=== PATIENT | female | born 1935 | race Caucasian/White ===

== ENCOUNTER 2016-11-11 15:19 | Inpatient (IN) ==
--- NOTE | 2016-11-11 15:39 | EKG Report ---
Test Performed on : 11/11/2016 3:30:11 PM Test Reason : Chest Pain Blood Pressure : / mmHG Vent. Rate : 077 BPM Atrial Rate : 394 BPM P-R Int : 000 ms QRS Dur : 074 ms QT Int : 388 ms P-R-T Axes : 000 105 249 degrees QTc Int : 439 ms Atrial fibrillation. Rightward axis Septal infarct , age undetermined ST \T\ T wave abnormality, consider inferior ischemia ST \T\ T wave abnormality, consider anterolateral ischemia Abnormal ECG When compared with ECG of 01-SEP-2015 14:28, No significant change was found Unconfirmed Result
--- NOTE | 2016-11-11 16:20 | Diag Imaging Result Doc PS360 ---
CHEST-2 VIEWS - 11/11/2016 INDICATION: sob TECHNIQUE: COMPARISON: 09/08/2015 FINDINGS: Stable cardiomegaly and pulmonary vascular congestion. No focal infiltrates, pneumothorax, or pleural effusion. IMPRESSION: Cardiomegaly and pulmonary vascular congestion. Electronically signed by Gregg Delacruz 11/11/2016 4:18 PM
[2016-11-11 16:25] LABS: MANUAL DIFF NEEDED? NO
[2016-11-11 16:33] LABS: BASO% 0.2 % (0.0-0.8); EOS# 0.33 X1000 (0.0-0.7); EOS% 1.9 % (0.0-10.0); HEMATOCRIT 39.3 % (37.0-47.0); HEMOGLOBIN 12.7 g/dL (12.0-16.0); IMM GRAN# 0.04 X1000 (0.0-0.04); IMM GRAN% 0.2 % (0.0-0.5); LYMPH# 2.55 X1000 (1.2-3.4); MCHC 32.3 g/dL (33-37); MCV 92.9 FL (81-99); MONO# 0.73 X1000 (0.11-0.59); MONO% 4.3 % (1.7-9.3); MPV 10.2 FL (7.4-10.4); NEUT% 78.4 % (42.2-75.2); PLT 223 X1000 (130-400); RBC 4.23 XMIL (4.2-5.4)
[2016-11-11 16:42] LABS: INR 1.02; PROTIME 10.7 Seconds (9.2-11.7)
[2016-11-11 16:57] LABS: ALBUMIN 3.7 g/dL (3.5-5.0); MAGNESIUM 2.1 mg/dL (1.5-2.7); POTASSIUM 4.4 mmol/L (3.5-5.1); TOTAL BILIRUBIN 0.29 mg/dL (0.20-1.00); TOTAL PROTEIN 7.9 g/dL (6.3-8.3)
[2016-11-11] MEDS ORDERED: DUONEB (A & A) INH ONE (17:01)
[2016-11-11] MEDS ORDERED: SOLU-MEDROL IV ONE (17:02)
[2016-11-11] MEDS ORDERED: ZOSYN 3.375 GM in NS 50 ML IV ONE (17:38)
--- NOTE | 2016-11-11 17:52 | PROVIDER DOCUMENTATION ---
HPI-General Adult - General Chief Complaint: General Adult Stated Complaint: LOW OXYGEN Time Seen by Provider: 11/11/16 16:17 Source: patient, family Allergies/Adverse Reactions: Patient Allergies Allergy/AdvReac Type Severity Reaction Status Date / Time sulfamethoxazole Allergy Unknown Verified 11/11/16 16:47 [From Bactrim] trimethoprim [From Bactrim] Allergy Unknown Verified 11/11/16 16:47 Home Medications: Home Medication List Medication Instructions Recorded Confirmed Last Taken Type Aspirin [Aspirin EC] 325 mg PO DAILY 08/10/13 11/11/16 11/11/16 08:00 History Calcium Citrate/Vitamin D2 1 each PO DAILY 08/10/13 11/11/16 11/11/16 08:00 History [Calcium Citrate with Vit D Tab] Digoxin 125 mcg PO DAILY 08/10/13 11/11/16 11/11/16 08:00 History Docusate Sodium 100 mg PO BID 08/10/13 11/11/16 11/11/16 08:00 History Esomeprazole [Nexium] 40 mg PO DAILY 08/10/13 11/11/16 11/11/16 08:00 History Fluoxetine HCl [Prozac] 40 mg PO DAILY 08/10/13 11/11/16 11/11/16 08:00 History Iron Carbonyl/Ascorbic Acid 1 each PO DAILY 08/10/13 11/11/16 11/11/16 08:00 History [Icar-C] Isosorbide Mononitrate [Isosorbide 30 mg PO DAILY 08/10/13 11/11/16 11/11/16 08: 00 History Mononitrate ER] LOVAstatin [Mevacor] 20 mg PO HS 08/10/13 11/11/16 11/11/16 08:00 History Lacosamide [Vimpat] 100 mg PO BID 08/10/13 11/11/16 11/11/16 08:00 History Levetiracetam 1,000 mg PO BID 08/10/13 11/11/16 11/11/16 08:00 History Magnesium Oxide [Mag-Ox] 400 mg PO BID 08/10/13 11/11/16 11/11/16 08:00 History Potassium Chloride [Klor-Con M20] 20 meq PO BID 08/10/13 11/11/16 11/11/16 08: 00 History Furosemide [Lasix] 60 mg PO BID #0 09/08/15 11/11/16 11/11/16 08:00 Rx - History of Present Illness -Gen Adult Nature of Presenting Problems: pt presents from home. She vomited yesterday and started to cough. She has been coughing since. Home health came out this morning and she was found to have low oxygen saturations despite her home o2 @3 L. Pt does tell she fell several days ago and landed on left hip. She has had hip pain since. She has been able to ambulate some. She denies headache, neck pain, back pain, chest pain, abd pain. Location of Pain/Injury: reports: lower extremity (left hip) Pain Radiation: reports: no radiation Quality of Pain: reports: aching Severity: reports: mild Onset/Duration: reports: 3 days ago Timing: reports: still present Context/Activities at Onset: reports: none Modifying Factors: improves with: movement, palpation Associated Symptoms: reports: cough, fatigue, joint pain, shortness of breath, vomiting, weakness. denies: anxiety, arm pain, chest pain, dizziness, fever/ chills, headaches, malaise, nausea, syncope Similar Symptoms Previously?: No Recently seen or treated by another doctor?: No Review of Systems - Adult - REVIEW OF SYSTEMS - ADULT Constitutional: reports: danieque Eyes: reports: no symptoms reported Ears, Nose, Mouth & Throat: reports: no symptoms reported Cardiovascular: reports: no symptoms reported Respiratory: reports: see HPI, cough, shortness of breath, wheezing Gastrointestinal: reports: see HPI, nausea, vomiting. denies: abdominal pain Genitourinary: reports: no symptoms reported Musculoskeletal: reports: no symptoms reported, see HPI, joint pain. denies: back pain, muscle weakness, neck pain Integumentary: reports: no symptoms reported Neurological: reports: no symptoms reported Psychiatric: reports: no symptoms reported Endocrine: reports: no symptoms reported Hematologic/Lymphatic: reports: no symptoms reported Allergic/Immunologic: reports: no symptoms reported All Other Systems: Reviewed and Negative Past History - Adult - PAST MEDICAL HISTORY-ADULT Review of Records: reports: Old Records Reviewed Major Childhood Illnesses: reports: denies history Cardiovascular: reports: CHF, HTN, [place] Respiratory: reports: COPD Gastrointestinal: reports: denies history Obstetrical/Gynecological: reports: denies history Genitourinary: reports: denies history Musculoskeletal: reports: denies history Neurological: reports: CVA, Seizures/Epilepsy Psychiatric: reports: anxiety Endocrine/Immune: reports: Diabetes Other Conditions: reports: other cancer (skin) - PRIOR SURGERIES/PROCEDURES Surgical/Procedure History: reports: hysterectomy - IMMUNIZATION STATUS Childhood Immunizations: See Nurse Assessment Flu Vaccine: See Nurse Assessment - FAMILY HISTORY Family History: reviewed, not pertinent - SOCIAL HISTORY Smoking: denies Substance Use: none/never Alcohol Use Frequency: never Living Situation: family Physical Exam-General - PHYSICAL EXAM-ADULT Initial Vital Signs Reviewed: Yes - CONSTITUTIONAL General Appearance: appears well, alert, no apparent distress - EYES Eyes: PERRL/EOMI, pink conjunctivae - HEAD, EARS, NOSE, MOUTH & THROAT HENMT: normocephalic/atraumatic - NECK Neck: supple - RESPIRATORY Respiratory: chest non-tender, rhonchi, other (wheeze) - CARDIOVASCULAR Cardiovascular: normal peripheral pulses, regular rate, rhythm, no edema - GASTROINTESTINAL (ABDOMEN) Abdominal Exam: non tender, soft, no organomegaly - MUSCULOSKELETAL Back Exam: normal inspection, no CVA tenderness, no vertebral tenderness. negative: vertebral tenderness Extremity: non-tender, normal inspection, no pedal edema, no calf tenderness, other (mild pain to left hip. mild pain c rom) Peripheral Pulses: dorsalis-pedis (R): 2+, dorsalis-pedis (L): 2+ - SKIN Integumentary: normal color, normal turgor, warm/dry - NEUROLOGIC Neurologic: grossly normal - PSYCHIATRIC Psych/Mental Status: normal mood/affect Progress - PLAN OF CARE/RESULTS Progress/Plan/Lab Results: Vital Signs - 8 hr 11/11/16 15:23 11/11/16 17:16 Pulse Rate 78 62 Respiratory Rate 20 14 Blood Pressure 152/82 O2 Sat by Pulse Oximetry 96 94 L Laboratory Results - last 24 hr 11/11/16 11/11/16 11/11/16 15:37 15:37 15:37 WBC 17.03 H RBC 4.23 Hgb 12.7 Hct 39.3 MCV 92.9 MCH 30.0 MCHC 32.3 L RDW Std Deviation 14.0 Plt Count 223 MPV 10.2 Immature Gran % (Auto) 0.2 Neut % (Auto) 78.4 H Lymph % (Auto) 15.0 L [place] % (Auto) 4.3 Eos % (Auto) 1.9 Baso % (Auto) 0.2 Immature Gran # (Auto) 0.04 Neut # (Auto) 13.34 H Lymph # (Auto) 2.55 [place] # (Auto) 0.73 H Eos # (Auto) 0.33 Baso # (Auto) 0.04 PT INR PTT (Actin FS) Sodium 142 Potassium 4.4 Chloride 100 Carbon Dioxide 29 Anion Gap 13 BUN 37 H Creatinine 1.3 H Estimated GFR/1.73 m2 39 BUN/Creatinine Ratio 28 Glucose 242 H Calculated Osmolality 300 Calcium 9.0 Magnesium 2.1 Total Bilirubin 0.29 AST 22 ALT 19 Alkaline Phosphatase 71 Creatine Kinase 67 Troponin T [id number]-[id number] Pept 4036 H Total Protein 7.9 Albumin 3.7 Globulin 4.2 Albumin/Globulin Ratio 0.9 Amylase 35 Lipase 19 11/11/16 11/11/16 15:37 15:37 WBC RBC Hgb Hct MCV MCH MCHC RDW Std Deviation Plt Count MPV Immature Gran % (Auto) Neut % (Auto) Lymph % (Auto) [place] % (Auto) Eos % (Auto) Baso % (Auto) Immature Gran # (Auto) Neut # (Auto) Lymph # (Auto) [place] # (Auto) Eos # (Auto) Baso # (Auto) PT 10.7 INR 1.02 PTT (Actin FS) 28.0 Sodium Potassium Chloride Carbon Dioxide Anion Gap BUN Creatinine Estimated GFR/1.73 m2 BUN/Creatinine Ratio Glucose Calculated Osmolality Calcium Magnesium Total Bilirubin AST ALT Alkaline Phosphatase Creatine Kinase Troponin T 0.058 [id number] Pept Total Protein Albumin Globulin Albumin/Globulin Ratio Amylase Lipase Orders Category Date Time Status Cardiac Monitoring DIRECTED Care 11/11/16 15:27 Active Oxygen Therapy- ED Nursing DIRECTED Care 11/11/16 15:27 Active Saline Loc DIRECTED Care 11/11/16 15:27 Active NPO Diet 11/11/16 15:27 Active CHEST-2 VIEWS [RAD] Stat Exams 11/11/16 15:27 Completed XRAY PELVIS W/HIP 2-3VW LT [RAD] Stat Exams 11/11/16 17:49 Ordered AMYLASE [CHEM] Stat Lab 11/11/16 15:37 Completed BLOOD CULTURE [BLDCUL] Stat Lab 11/11/16 17:21 Uncollected CBC WITH ELECTRONIC DIFF [HEME] Stat Lab 11/11/16 15:37 Completed CK PROFILE [SP CHEM] Stat Lab 11/11/16 15:37 Completed COMPREHENSIVE METABOLIC PANEL [CHEM] Stat Lab 11/11/16 15:37 Completed DIGOXIN [TDM] Stat Lab 11/11/16 15:37 Received LACTATE, PLASMA [CHEM] Stat Lab 11/11/16 17:21 Uncollected LIPASE [CHEM] Stat Lab 11/11/16 15:37 Completed MAGNESIUM [CHEM] Stat Lab 11/11/16 15:37 Completed PRO B-NATRIURETIC PEPTIDE Stat Lab 11/11/16 15:37 Completed PROTIME WITH INR [COAG] Stat Lab 11/11/16 15:37 Completed PTT [COAG] Stat Lab 11/11/16 15:37 Completed TROPONIN T Stat Lab 11/11/16 15:37 Completed UA NIMS W/REFLEX CULT [URINALYSIS] Stat Lab 11/11/16 17:01 Uncollected Albuterol 2.5MG/Ipratrop 0.5MG [Duoneb (A & A)] Med 11/11/16 17:01 Discontinued 6 ml INH NOW ONE Methylprednisolone Sod Succ [Solu-Medrol] Med 11/11/16 17:02 Discontinued 80 mg IV NOW ONE Piperacillin/Tazobactam [Zosyn] 3.375 gm Med 11/11/16 17:38 Active 0.9% Sodium Chloride Inj [Ns] 50 ml IV NOW neb [Aerosol Treatments] Stat Oth 11/11/16 17:01 Completed EKG [EKG] Stat Ther 11/11/16 15:27 Draft Result Diagrams: 11/12/16 04:52 11/12/16 04:52 - REASSESSMENT Reassessment #1 Time Reassessed: 17:40 Status: other (pt with cough, hypoxemia, leukocyotosis. Severe wheeze/rhonchi on exam. Per family in room they noticed her coughing after a vomiting episode yesterday. I am concerned for aspiration. Will admit for IV abx, nebs, monitoring.) - XRAY 1 XRAY Study: Chest Impression: See EMR Report (cardiomegaly, vas congestion. no infiltrate.) 2 XRAY: Left XRAY Study: Pelvis, Hip Impression: See EMR Report (NAF) - CONSULTS/PCP/HOSPITALIST Notification #1 *Consult/PCP/Hospitalist*: Dr. Sands Time Discussed: 17:51 Consult Disposition: Admit (start manasan. Will write orders.) Departure - Departure Date of Disposition Decision: 11/11/16 Time of Disposition Decision: 17:50 DIAGNOSIS: Hypoxemia Leukocytosis Qualifiers: Leukocytosis type: unspecified Qualified Code(s): D72.829 - Elevated white blood cell count, unspecified Hip pain Qualifiers: Laterality: left Qualified Code(s): M25.552 - Pain in left hip Nausea and vomiting Qualifiers: Vomiting type: unspecified Vomiting Intractability: non-intractable Qualified Code(s): R11.2 - Nausea with vomiting, unspecified Disposition: ADMITTED INPATIENT 09 Certified Medical Emergency: Emergent Condition: Stable - Critical Care Note This patient required my direct & personal management of CC.: No Attestation - Physician/ FLORENCE Attestation Patient care was provided by Advanced Practice Provider:: Yes Advanced Practice Provider:: Viktor Burrell Advanced Practice Provider documentation review:: The Mid-level provider documentation, treatment plan and medical decision making was reviewed by the physician who agrees with all treatment and medical decision making by the MLP. The physician spent face to face time with patient:: No Advanced Practice Provider documentation review:: Supervising physician onsite and consulted in the evaluation and care of this patient. The physician did not have a face to face encounter with the patient.
--- NOTE | 2016-11-11 18:40 | Diag Imaging Result Doc PS360 ---
XRAY PELVIS W/HIP 2-3VW LT - 11/11/2016 INDICATION: fall, hip pain TECHNIQUE: Three views COMPARISON: None FINDINGS: There is mild bilateral hip osteoarthritis with large acetabular osteophytes. No fracture or dislocation. There is advanced degeneration of the lower lumbar spine. IMPRESSION: Degenerative changes. No acute disease. Electronically signed by Gregg Delacruz 11/11/2016 6:38 PM
[2016-11-11 20:48] LABS: ALLEN TEST YES; BE 7.2 mmoll (-3.0-3.0); BLOOD TYPE ARTERIAL; DRAW SITE R RADIAL; METHB 1.4 % (0.0-1.5); O2(CT) 17.9 mL/dL (15.0-23.0); PCO2(98.6) 45 mmHg (35-45); PO2(98.6) 71 mmHg (60-100); SAMPLE BLOOD; SAO2 97.5 % (95.0-100.0); THB 13.5 g/dL (11.5-17.4); pH(98.6) 7.46 (7.35-7.45)
[2016-11-11 20:49] LABS: MODALITY CANNULA
[2016-11-11] MEDS ORDERED: HUMALOG SUBQ SCH (21:00)
[2016-11-11] MEDS: MAG-OX PO SCH (21:28)
[2016-11-11] MEDS: KLOR-CON PO SCH (21:28)
[2016-11-11] MEDS: LASIX PO SCH (21:29)
[2016-11-11] MEDS: MEVACOR PO SCH (21:29)
[2016-11-11] MEDS: COLACE PO SCH (21:29)
[2016-11-11] MEDS: KEPPRA PO SCH (21:29)
[2016-11-11] MEDS: VIMPAT PO SCH (21:29)
[2016-11-11 21:40] LABS: URINE MICRO REVIEW NEEDED? NO; URINE SOURCE CLEAN CATCH
--- NOTE | 2016-11-11 21:44 | HISTORY AND PHYSICAL ---
CHIEF COMPLAINT: Shortness of breath. HISTORY OF PRESENT ILLNESS: Ms. Cruz is an 81-year-old white female who was brought in to the emergency department earlier today with complaint of having shortness of breath along with cough and congestion starting yesterday after she vomited at home. She has been having significant coughing and congestion ever since. Today earlier this morning she was found to have hypoxemia with low oxygen saturation despite use of home oxygen at 3 L by home health after which she was decided to be sent to the emergency room for further evaluation and care. The patient also states that she had a fall several days ago and landed on her left hip after which she has been having left hip pain. She denies having any other complaints. She has been a poor historian. PAST MEDICAL HISTORY: 1. Type 2 diabetes mellitus. 2. Chronic atrial fibrillation. 3. Chronic diastolic congestive heart failure. 4. Hypertension. 5. Dyslipidemia. 6. Gastroesophageal reflux disease. 7. Anxiety disorder. 8. Depression. 9. Osteopenia. 10. Osteoarthritis. 11. There is a history of subdural hematoma that was related to warfarin therapy after which warfarin was discontinued. SOCIAL HISTORY: Patient does not smoke any tobacco products nor does she drink any alcohol. She is retired and lives at home. FAMILY HISTORY: There is family history of arthritis and stroke. ALLERGIES: The patient reports to be allergic to Bactrim. CURRENT HOME MEDICATIONS: 1. Aspirin 325 mg orally once daily. 2. Calcium carbonate 600 mg orally once daily. 3. Digoxin 125 mcg orally once daily. 4. Docusate sodium 100 mg orally twice daily. 5. Nexium 40 mg orally once daily in the morning. 6. Fluoxetine 40 mg orally once daily. 7. Furosemide 80 mg in the morning and 40 mg in the evening every day. 8. Icar-C 250 mg/100 mg orally once daily. 9. Isosorbide mononitrate ER 30 mg orally once daily. 10. Lacosamide 100 mg orally twice daily. 11. Keppra 1000 mg orally twice daily. 12. Lovastatin 20 mg orally once daily at bedtime. 13. Magnesium oxide 400 mg orally twice daily. 14. Potassium chloride 20 mEq orally twice daily. REVIEW OF SYSTEMS: A full review of system could not be obtained since patient is a poor historian. PHYSICAL EXAMINATION: VITAL SIGNS: Temperature 98 degrees, pulse 62 per minute, respiratory rate 14 per minute, blood pressure 152/82, pulse oximetry 94% on 4 L of oxygen via nasal cannula. GENERAL: Patient is alert and oriented x3. She does not appear to be in any acute distress. HEENT: No acute findings noted. NECK: Supple without any thyromegaly. LYMPHATICS: No lymphadenopathy noted in the cervical or axillary areas. RESPIRATORY SYSTEM: Bilateral lung air entry is moderately decreased and there are a few rales present bilaterally on auscultation. CARDIOVASCULAR SYSTEM: First and second heart sounds are audible without any murmurs or gallops. Irregularly irregular rhythm is present. GASTROINTESTINAL: Abdomen is soft and nondistended. It is nontender on palpation. Normal bowel sounds are present. MUSCULOSKELETAL SYSTEM: No deformities are present. Range of motion in most of the joints somewhat limited secondary to osteoarthritis. NEUROLOGIC: No focal deficits are present. GENITOURINARY: Deferred. PSYCHIATRIC: Normal affect noted. INTEGUMENTARY: Skin is warm, dry, and without any rash. DIAGNOSTIC DATA: CBC shows WBC count of 17.03. Rest of the CBC is nondiagnostic. Chemistry showed BUN 37, creatinine 1.3 and glucose levels of 242. Rest of the comprehensive metabolic panel was nondiagnostic. PT and PTT are within normal limits and CPK is also within normal limits. Troponin is negative and amylase and lipase are both within normal limits. ProBNP was elevated at 4036 and plasma lactate was normal at 1.9. Digoxin levels were also within therapeutic range at 1.0. Two sets of blood cultures were obtained at the emergency room and are pending at the time of this dictation. ECG obtained at the emergency room showed atrial fibrillation with ventricular response of 77 beats per minute with inferolateral T-wave inversions. Chest x-ray showed cardiomegaly with increased pulmonary vascular congestion. Left hip and pelvis x-rays showed no acute findings. IMPRESSION: 1. Aspiration with dyspnea and hypoxemia likely secondary to early aspiration pneumonia. 2. Type 2 diabetes mellitus that appears to be uncontrolled. 3. Chronic diastolic congestive heart failure. 4. Chronic atrial fibrillation. 5. Hypertension. PLAN: The patient has been admitted to the [facility] on telemetry and we are going to continue her routine home medications. I am also going to continue with Zosyn intravenously that was started at the emergency department. Will give her albuterol and Atrovent nebulization treatments q.6 hours and give her oxygen inhalation via nasal cannula as well. I am going to obtain an ABG to evaluate her hypoxemia and start her on lispro insulin as per sliding scale to control her diabetes. Would repeat CBC and basic metabolic panel in the morning tomorrow. I am also going to obtain a 2nd set of cardiac enzymes now to make sure she does not have any acute myocardial ischemic event. Further recommendations will be given as per outcome of these measures. cc: Lyle Sands MD
[2016-11-11 21:45] LABS: BILIRUBIN URINE NEGATIVE (NEGATIVE); BLOOD URINE NEGATIVE (NEGATIVE); COLOR YELLOW; GLUCOSE URINE NEGATIVE (NEGATIVE); LEUKOCYTES URINE LARGE (NEGATIVE); NITRITE URINE NEGATIVE (NEGATIVE); PH URINE 8.5; PROTEIN URINE 30 mg/dL (NEGATIVE); SP GRAVITY URINE 1.018; TURBIDITY URINE HAZY (CLEAR); UROBILINOGEN URINE NORMAL (NORMAL)
[2016-11-11 21:46] LABS: UR EPITHELIAL CELLS >10 /HPF (<10); URINE BACTERIA 4+ /HPF; URINE CULTURE NEEDED? YES; URINE RBC <10 /HPF (<10)
[2016-11-11] MEDS ORDERED: DUONEB (A & A) INH SCH (22:00)
[2016-11-12] MEDS: ZOSYN 3.375 GM in NS 50 ML IV SCH ×4 (01:15→18:24)
[2016-11-12 06:22] LABS: CALCIUM 9.2 mg/dL (8.8-10.2); MAGNESIUM 2.2 mg/dL (1.5-2.7); POTASSIUM 4.8 mmol/L (3.5-5.1)
[2016-11-12] MEDS: NEXIUM PO SCH (06:25)
[2016-11-12 06:32] LABS: BASO% 0.1 % (0.0-0.8); EOS# 0.01 X1000 (0.0-0.7); EOS% 0.1 % (0.0-10.0); HEMATOCRIT 40.8 % (37.0-47.0); HEMOGLOBIN 13.1 g/dL (12.0-16.0); IMM GRAN# 0.04 X1000 (0.0-0.04); IMM GRAN% 0.3 % (0.0-0.5); LYMPH# 1.09 X1000 (1.2-3.4); LYMPH% 8.4 % (20.5-51.1); MANUAL DIFF NEEDED? YES; MCH 29.6 PG (27-31); MCHC 32.1 g/dL (33-37); MCV 92.3 FL (81-99); MONO# 0.27 X1000 (0.11-0.59); MONO% 2.1 % (1.7-9.3); MPV 10.6 FL (7.4-10.4); PLT 213 X1000 (130-400); RBC 4.42 XMIL (4.2-5.4)
[2016-11-12 07:24] LABS: LYMPHS 10 % (21-51); MONO 4 % (1-9)
--- NOTE | 2016-11-12 08:13 | PROGRESS NOTE ---
DATE: 11/12/2016 VITAL SIGNS: Temperature 96.8, heart rate 68, respirations 18, blood pressure 137/109. O2 sat 99% on 3 L nasal oxygen. LABORATORY: Sodium 140, potassium 4.8, BUN 35, creatinine 1.1, glucose 231. Troponin T early a.m. was 0.036. Hemoglobin 13.1, hematocrit 40.8, white blood count 13,000 with 89% neutrophils. SUBJECTIVE: The patient states she still feels bad with cough and shortness of breath. OBJECTIVE: Lungs are fairly clear. IMAGING: Initial chest x-ray showed cardiomegaly and pulmonary vascular congestion. She continues to be in atrial fibrillation with controlled rate. MEDICATIONS: Home medications have been continued including Lasix 60 mg b.i.d. She is on Zosyn for possible early aspiration pneumonitis. She was given one dose of Solu-Medrol 1 g in the emergency room. PLAN: P.O. Apresoline. Intravenous antibiotic will be continued. Blood cultures are pending. We will also attempt sit her up in the chair a few times today. cc: MD Lyle Jefferson MD
[2016-11-12] MEDS: VIMPAT PO SCH ×2 (08:30→20:12)
[2016-11-12] MEDS: KEPPRA PO SCH ×2 (08:30→20:12)
[2016-11-12] MEDS: LANOXIN PO SCH (08:30)
[2016-11-12] MEDS: PROZAC PO SCH (08:30)
[2016-11-12] MEDS: LASIX PO SCH ×2 (08:30→20:12)
[2016-11-12] MEDS: ICAR-C PO SCH (08:30)
[2016-11-12] MEDS: KLOR-CON PO SCH ×2 (08:30→20:12)
[2016-11-12] MEDS: COLACE PO SCH ×2 (08:30→20:12)
[2016-11-12] MEDS: IMDUR PO SCH (08:31)
[2016-11-12] MEDS: CALTRATE 600 + D PO SCH (08:31)
[2016-11-12] MEDS: APRESOLINE PO SCH ×2 (08:31→17:09)
[2016-11-12] MEDS: ASPIRIN EC PO SCH (08:31)
[2016-11-12] MEDS: MAG-OX PO SCH ×2 (08:31→20:12)
[2016-11-12] MEDS: MEVACOR PO SCH (20:12)
[2016-11-12] MEDS: CALMOSEPTINE OINTMENT TOP PRN (20:39)
[2016-11-13] MEDS: APRESOLINE PO SCH ×3 (00:30→16:23)
[2016-11-13] MEDS: ZOSYN 3.375 GM in NS 50 ML IV SCH ×4 (00:30→18:29)
[2016-11-13] MEDS: CALMOSEPTINE OINTMENT TOP PRN ×2 (00:30→05:02)
[2016-11-13 05:26] LABS: MANUAL DIFF NEEDED? NO
[2016-11-13 05:49] LABS: BASO% 0.3 % (0.0-0.8); EOS# 0.28 X1000 (0.0-0.7); HEMATOCRIT 40.9 % (37.0-47.0); HEMOGLOBIN 13.1 g/dL (12.0-16.0); IMM GRAN# 0.03 X1000 (0.0-0.04); IMM GRAN% 0.2 % (0.0-0.5); LYMPH# 2.31 X1000 (1.2-3.4); LYMPH% 16.2 % (20.5-51.1); MCH 29.7 PG (27-31); MCV 92.7 FL (81-99); MONO# 0.63 X1000 (0.11-0.59); MONO% 4.4 % (1.7-9.3); MPV 11.4 FL (7.4-10.4); NEUT% 76.9 % (42.2-75.2); PLT 103 X1000 (130-400); RBC 4.41 XMIL (4.2-5.4)
[2016-11-13 06:01] LABS: CALCIUM 9.1 mg/dL (8.8-10.2); POTASSIUM 4.2 mmol/L (3.5-5.1)
[2016-11-13] MEDS: NEXIUM PO SCH (06:22)
[2016-11-13] MEDS: ICAR-C PO SCH (08:22)
[2016-11-13] MEDS: LANOXIN PO SCH (08:22)
[2016-11-13] MEDS: MAG-OX PO SCH ×2 (08:22→20:43)
[2016-11-13] MEDS: PROZAC PO SCH (08:22)
[2016-11-13] MEDS: CALTRATE 600 + D PO SCH (08:22)
[2016-11-13] MEDS: KLOR-CON PO SCH ×2 (08:22→20:43)
[2016-11-13] MEDS: IMDUR PO SCH (08:22)
[2016-11-13] MEDS: LASIX PO SCH ×2 (08:23→20:43)
[2016-11-13] MEDS: COLACE PO SCH ×2 (08:23→20:43)
[2016-11-13] MEDS: VIMPAT PO SCH ×2 (08:23→20:43)
[2016-11-13] MEDS: KEPPRA PO SCH ×2 (08:23→20:43)
[2016-11-13] MEDS: ASPIRIN EC PO SCH (08:23)
[2016-11-13] MEDS ORDERED: ZOFRAN IV PRN (20:31)
[2016-11-13] MEDS: MEVACOR PO SCH (20:43)
[2016-11-14] MEDS: APRESOLINE PO SCH ×3 (01:47→16:30)
[2016-11-14] MEDS: ZOSYN 3.375 GM in NS 50 ML IV SCH ×6 (01:47→18:35)
[2016-11-14 03:31] LABS: ALLEN TEST YES; BE 12.8 mmoll (-3.0-3.0); BLOOD TYPE ARTERIAL; DRAW SITE R RADIAL; O2(CT) 18.8 mL/dL (15.0-23.0); PO2(98.6) 74 mmHg (60-100); SAMPLE BLOOD; SAO2 98.8 % (95.0-100.0); pH(98.6) 7.42 (7.35-7.45)
[2016-11-14 03:35] LABS: MODALITY CANNULA
[2016-11-14 03:41] LABS: PCO2(98.6) 62 mmHg (35-45)
[2016-11-14 05:07] LABS: MANUAL DIFF NEEDED? NO
[2016-11-14 05:24] LABS: BASO% 0.5 % (0.0-0.8); EOS% 3.9 % (0.0-10.0); HEMOGLOBIN 13.4 g/dL (12.0-16.0); IMM GRAN# 0.04 X1000 (0.0-0.04); IMM GRAN% 0.3 % (0.0-0.5); LYMPH# 2.59 X1000 (1.2-3.4); LYMPH% 20.1 % (20.5-51.1); MCHC 31.9 g/dL (33-37); MONO# 0.73 X1000 (0.11-0.59); MONO% 5.7 % (1.7-9.3); MPV 10.3 FL (7.4-10.4); NEUT% 69.5 % (42.2-75.2); PLT 233 X1000 (130-400); RBC 4.47 XMIL (4.2-5.4)
[2016-11-14 05:47] LABS: CALCIUM 9.1 mg/dL (8.8-10.2); MAGNESIUM 2.3 mg/dL (1.5-2.7); POTASSIUM 4.3 mmol/L (3.5-5.1)
[2016-11-14] MEDS: NEXIUM PO SCH (06:07)
--- NOTE | 2016-11-14 07:31 | Diag Imaging Result Doc PS360 ---
EXAM: CHEST-PORTABLE INDICATION: Hypoxemia; Aspiration TECHNIQUE: One view COMPARISON: 11/11/2016 FINDINGS: Pulmonary venous congestion is approximately stable. There is platelike atelectasis at the mid and lower lung zones that is approximately stable. No definite new consolidation is identified. Cardiac silhouette is stable. IMPRESSION: Essentially stable chest. Electronically signed by Serafin Luna 11/14/2016 7:29 AM
[2016-11-14] MEDS: LANOXIN PO SCH (08:14)
[2016-11-14] MEDS: LOVENOX SUBQ SCH (08:14)
[2016-11-14] MEDS: IMDUR PO SCH (08:14)
[2016-11-14] MEDS: CALTRATE 600 + D PO SCH (08:14)
[2016-11-14] MEDS: COLACE PO SCH ×2 (08:15→21:43)
[2016-11-14] MEDS: VIMPAT PO SCH ×2 (08:15→21:42)
[2016-11-14] MEDS: ASPIRIN EC PO SCH (08:15)
[2016-11-14] MEDS: KEPPRA PO SCH ×2 (08:15→21:43)
[2016-11-14] MEDS: MAG-OX PO SCH ×2 (08:15→21:43)
[2016-11-14] MEDS: PROZAC PO SCH (08:15)
[2016-11-14] MEDS: ICAR-C PO SCH (08:15)
[2016-11-14] MEDS: MEVACOR PO SCH (21:43)
[2016-11-15] MEDS: APRESOLINE PO SCH ×3 (01:41→16:53)
[2016-11-15] MEDS: ZOSYN 3.375 GM in NS 50 ML IV SCH ×5 (01:41→19:35)
[2016-11-15 05:37] LABS: CALCIUM 8.7 mg/dL (8.8-10.2); POTASSIUM 3.7 mmol/L (3.5-5.1)
[2016-11-15] MEDS: NEXIUM PO SCH ×2 (05:56→06:16)
[2016-11-15] MEDS: VIMPAT PO SCH ×2 (09:53→20:06)
[2016-11-15] MEDS: CALTRATE 600 + D PO SCH (09:53)
[2016-11-15] MEDS: MAG-OX PO SCH ×2 (09:53→20:07)
[2016-11-15] MEDS: ICAR-C PO SCH (09:54)
[2016-11-15] MEDS: KEPPRA PO SCH ×2 (09:54→20:06)
[2016-11-15] MEDS: PROZAC PO SCH (09:54)
[2016-11-15] MEDS: COLACE PO SCH ×2 (09:55→20:06)
[2016-11-15] MEDS: IMDUR PO SCH (09:55)
[2016-11-15] MEDS: LOVENOX SUBQ SCH (09:55)
[2016-11-15] MEDS: LANOXIN PO SCH (09:55)
[2016-11-15] MEDS: ASPIRIN EC PO SCH (09:55)
[2016-11-15] MEDS: 1/2 NS 500 ML IV SCH ×2 (15:07→16:53)
[2016-11-15] MEDS: MEVACOR PO SCH (20:06)
--- NOTE | 2016-11-15 22:01 | Diag Imaging Result Doc PS360 ---
EXAM: CT ANGIOGRM/PULMONARY ARTERIES - 11/15/2016 HISTORY: Hypoxemia TECHNIQUE: With intravenous contrast. Axial, reformatted coronal MIP, and reformatted 3-D rotating MIP images are obtained. Dose reduction protocol. COMPARISON: Without contrast CT thorax of 09/05/2015 FINDINGS: There are no filling defects identified in the pulmonary arteries. There is no indication of aortic dissection. There is cardiomegaly similar to the previous exam. There is a small pericardial effusion appears to have decreased. There is increased atelectasis at the lower lobe and posterior upper lobe on the left. There is a small left pleural effusion. There is some atelectasis or scarring along the right major fissure which has decreased. There is been interval resolution of right pleural effusion. There is no pneumothorax identified. There are scattered small to borderline mediastinal lymph nodes similar to the previous exam. IMPRESSION: No evidence of pulmonary embolism. Stable cardiomegaly. Small pericardial effusion which has decreased. Increased atelectasis at the left lower lobe and posterior left upper lobe. Small left pleural effusion. Decreased atelectasis along right major fissure. Resolution of right pleural effusion. Stable small to borderline mediastinal lymph nodes. Electronically signed by Alexander Lew 11/15/2016 9:58 PM
[2016-11-16] MEDS: APRESOLINE PO SCH ×3 (01:16→17:57)
[2016-11-16] MEDS: ZOSYN 3.375 GM in NS 50 ML IV SCH ×5 (01:16→18:02)
[2016-11-16] MEDS ORDERED: TYLENOL PO PRN (03:10)
[2016-11-16 03:38] LABS: ALLEN TEST YES; BE 10.8 mmoll (-3.0-3.0); BLOOD TYPE ARTERIAL; DRAW SITE R RADIAL; METHB 0.8 % (0.0-1.5); O2(CT) 15.5 mL/dL (15.0-23.0); SAMPLE BLOOD; THB 13.4 g/dL (11.5-17.4); pH(98.6) 7.45 (7.35-7.45)
[2016-11-16 03:40] LABS: MODALITY ROOM AIR
[2016-11-16 03:42] LABS: PCO2(98.6) 53 mmHg (35-45); PO2(98.6) 43 mmHg (60-100)
[2016-11-16 05:00] LABS: MANUAL DIFF NEEDED? NO
[2016-11-16 05:07] LABS: BASO% 0.2 % (0.0-0.8); EOS# 0.23 X1000 (0.0-0.7); EOS% 1.8 % (0.0-10.0); HEMATOCRIT 39.6 % (37.0-47.0); HEMOGLOBIN 13.4 g/dL (12.0-16.0); IMM GRAN# 0.04 X1000 (0.0-0.04); IMM GRAN% 0.3 % (0.0-0.5); LYMPH# 1.73 X1000 (1.2-3.4); LYMPH% 13.7 % (20.5-51.1); MCHC 33.8 g/dL (33-37); MCV 91.7 FL (81-99); MONO# 0.83 X1000 (0.11-0.59); MONO% 6.6 % (1.7-9.3); MPV 10.4 FL (7.4-10.4); NEUT% 77.4 % (42.2-75.2); PLT 216 X1000 (130-400); RBC 4.32 XMIL (4.2-5.4)
[2016-11-16 05:20] LABS: ALBUMIN 3.5 g/dL (3.5-5.0); CALCIUM 9.1 mg/dL (8.8-10.2); MAGNESIUM 2.4 mg/dL (1.5-2.7); POTASSIUM 3.6 mmol/L (3.5-5.1); TOTAL BILIRUBIN 0.31 mg/dL (0.20-1.00)
[2016-11-16] MEDS: NEXIUM PO SCH (06:11)
--- NOTE | 2016-11-16 07:36 | Diag Imaging Result Doc PS360 ---
CHEST-PORTABLE - 11/16/2016 INDICATION: Hypoxemia; CHF TECHNIQUE: COMPARISON: 11/14/2016 FINDINGS: Stable significant cardiomegaly and pulmonary vascular congestion. There is worsening in the left basilar consolidation and/or effusion. The amount of aerated left upper lobe is now very tiny indeed. The left hemithorax is over 80% opacified. IMPRESSION: Worsening opacification of the left lung base. Electronically signed by Gregg Delacruz 11/16/2016 7:33 AM
[2016-11-16] MEDS: LOVENOX SUBQ SCH (09:31)
[2016-11-16] MEDS: ASPIRIN EC PO SCH (09:31)
[2016-11-16] MEDS: PROZAC PO SCH (09:31)
[2016-11-16] MEDS: VIMPAT PO SCH ×2 (09:32→22:01)
[2016-11-16] MEDS: KEPPRA PO SCH ×2 (09:32→22:01)
[2016-11-16] MEDS: ICAR-C PO SCH (09:32)
[2016-11-16] MEDS: LANOXIN PO SCH (09:32)
[2016-11-16] MEDS: COLACE PO SCH ×2 (09:32→21:59)
[2016-11-16] MEDS: MAG-OX PO SCH ×2 (09:32→22:02)
[2016-11-16] MEDS: CALTRATE 600 + D PO SCH (09:32)
[2016-11-16] MEDS: IMDUR PO SCH (09:32)
[2016-11-16] MEDS: KLOR-CON PO SCH ×2 (09:36→22:02)
[2016-11-16] MEDS: LASIX PO SCH ×2 (09:36→22:00)
[2016-11-16] MEDS: MEVACOR PO SCH (22:01)
[2016-11-17] MEDS: ZOSYN 3.375 GM in NS 50 ML IV SCH ×3 (01:48→13:32)
[2016-11-17] MEDS: APRESOLINE PO SCH ×2 (01:49→09:02)
[2016-11-17 05:50] LABS: CALCIUM 9.2 mg/dL (8.8-10.2); POTASSIUM 3.7 mmol/L (3.5-5.1)
[2016-11-17] MEDS: NEXIUM PO SCH (07:00)
[2016-11-17] MEDS: ICAR-C PO SCH (09:01)
[2016-11-17] MEDS: PROZAC PO SCH (09:01)
[2016-11-17] MEDS: LOVENOX SUBQ SCH (09:01)
[2016-11-17] MEDS: ASPIRIN EC PO SCH (09:02)
[2016-11-17] MEDS: CALTRATE 600 + D PO SCH (09:02)
[2016-11-17] MEDS: LASIX PO SCH (09:02)
[2016-11-17] MEDS: VIMPAT PO SCH (09:02)
[2016-11-17] MEDS: MAG-OX PO SCH (09:02)
[2016-11-17] MEDS: COLACE PO SCH (09:02)
[2016-11-17] MEDS: KLOR-CON PO SCH (09:02)
[2016-11-17] MEDS: KEPPRA PO SCH (09:02)
[2016-11-17] MEDS: LANOXIN PO SCH (09:02)
[2016-11-17] MEDS: IMDUR PO SCH (09:02)
--- NOTE | 2016-11-17 11:37 | DISCHARGE SUMMARY ---
ADMISSION DATE: 11/11/2016 DISCHARGE DATE: DISCHARGE DIAGNOSES: 1. Hypoxemia that is chronic and secondary to chronic obstructive pulmonary disease. 2. Vomiting with aspiration. 3. Urinary tract infection. 4. Chronic atrial fibrillation. 5. Chronic diastolic congestive heart failure. 6. Hypertension. 7. Type 2 diabetes mellitus. HOSPITAL COURSE: Ms. Cruz is an 81-year-old white female, who was brought into the emergency department with complaint of having shortness of breath, along with cough and congestion starting after she vomited at home. She was having significant coughing, along with congestion since then. She was brought into the emergency department and during further history, she had a fall and was having some left hip pain. X-rays of the left hip did not show any acute finding. She was admitted to the hospital since she had leukocytosis and had hypoxemia. She was initially treated with IV Zosyn and chest x-rays failed to show any infiltrate. After a few days she continued to have hypoxemia and therefore we obtained a CT angiogram of the pulmonary arteries that did not show any pulmonary embolism. Repeated chest x-rays failed to show any infiltrate and therefore the pneumonia has been ruled out. She was also found to have urinary tract infection and I believe Zosyn was more than enough to treat that. The patient's condition has improved and it is assumed that her hypoxemia is secondary to chronic obstructive pulmonary disease and other multiple factors including chronic diastolic congestive heart failure, chronic atrial fibrillation, and her overall frail condition. Since patient's condition has stabilized, she is going to be discharged home today. It should be noted that the patient is already on home oxygen and she will continue to be on 24 hour home oxygen 3-4 L/minute via nasal cannula. Patient declines to be transferred to rehab and therefore we are going to discharge her home with home health. DISCHARGE MEDICATIONS: 1. Aspirin 325 mg orally once daily. 2. Calcium carbonate 600 mg orally once daily. 3. Digoxin 125 mcg orally once daily. 4. Docusate sodium 100 mg orally twice daily. 5. Nexium 40 mg orally once daily in the morning. 6. Fluoxetine 40 mg orally once daily. 7. Furosemide 80 mg in the morning and 40 mg in the evening. 8. Icar-C 250/100 orally once daily. 9. Imdur 30 mg orally once daily. 10. Lacosamide 100 mg orally twice daily. 11. Keppra 1000 mg orally twice daily. 12. Lovastatin 20 mg orally once daily at bedtime. 13. Magnesium oxide 400 mg orally twice daily. 14. Potassium chloride 20 mEq orally twice daily. 15. 24 hour oxygen @ 3-4 LPM via [place]. FOLLOWUP: She will follow with me at the office in approximately 7-10 days. CONDITION: Stable. DISPOSITION: Home with home health care. TIME SPENT: A total of more than 40 minutes was spent taking care of this patient during the discharge process. cc: Lyle Sands MD MTDD
[2016-11-17 16:17] VITALS: BP 135/66
--- NOTE | 2016-12-27 19:18 | ED EKG INTERP ---
This chart was entered by Rosa Giraldo Scribe, acting as scribe for Vicky Kimball MD. EKG Interpretation - EKG Time of EKG reading by physician:: 15:30 EKG Read and Signed by:: Vicky Kimball EKG Interpretation (*Must complete 3 of following elements*): Abnormal (ST & T wave abnormality, consider inferior ischemia; ST & T wave abnormality, consider anterolateral ischemia) Rate: 77 Rhythm: atrial fibrillation Comments: rightward axis; septal infarct, age undetermined; Attestation - Physician/ [place] Attestation Patient care was provided by Advanced Practice Provider:: Yes Advanced Practice Provider documentation review:: The Mid-level provider documentation, treatment plan and medical decision making was reviewed by the physician who agrees with all treatment and medical decision making by the MLP. The physician spent face to face time with patient:: No Advanced Practice Provider documentation review:: Supervising physician onsite and consulted in the evaluation and care of this patient. The physician did not have a face to face encounter with the patient. This chart was documented by the indicated scribe, (Rosa Giraldo Scribe) and accurately reflects the services I performed and decisions made by me, Vicky Kimball MD, as attested by the provider's signature.
== END 2016-11-17 17:29 | disposition home health service (06) ==
LOC: ED 15:19 → 3S 19:41
PROVIDERS: ADMIT Internal Medicine; ATTEND Internal Medicine

== ENCOUNTER 2018-08-01 12:39 | Inpatient (IN) ==
[2018-08-01 13:26] LABS: URINE SOURCE CATH
[2018-08-01] MEDS ORDERED: ZOFRAN IV ONE (13:28)
[2018-08-01] MEDS ORDERED: NS 500 ML IV ONE (13:28)
[2018-08-01] MEDS ORDERED: MORPHINE IV ONE (13:28)
[2018-08-01 13:35] LABS: BASO# 0.04 X1000 (0.0-0.2); BASO% 0.3 % (0.0-0.8); EOS# 0.07 X1000 (0.0-0.7); EOS% 0.6 % (0.0-10.0); HEMATOCRIT 37.4 % (37.0-47.0); HEMOGLOBIN 11.1 g/dL (12.0-16.0); LYMPH# 1.31 X1000 (1.2-3.4); LYMPH% 10.8 % (20.5-51.1); MCH 28.6 PG (27-31); MCHC 29.7 g/dL (33-37); MCV 96.4 FL (81-99); MONO# 0.55 X1000 (0.11-0.59); MONO% 4.5 % (1.7-9.3); MPV 10.6 FL (7.4-10.4); NEUT# 10.19 X1000 (1.4-6.5); NEUT% 83.8 % (42.2-75.2); PLT 200 X1000 (130-400); RBC 3.88 XMIL (4.2-5.4); RDW 14.9 % (11.5-14.5); WBC 12.16 X1000 (4.8-10.8)
[2018-08-01 13:35] LABS: BILIRUBIN URINE NEGATIVE (NEGATIVE); BLOOD URINE TRACE (NEGATIVE); COLOR YELLOW; GLUCOSE URINE NEGATIVE (NEGATIVE); KETONE URINE NEGATIVE (NEGATIVE); LEUKOCYTES URINE NEGATIVE (NEGATIVE); NITRITE URINE NEGATIVE (NEGATIVE); PROTEIN URINE 300 mg/dL (NEGATIVE); SP GRAVITY URINE 1.021; TURBIDITY URINE CLEAR (CLEAR); UROBILINOGEN URINE 2 mg/dL (NORMAL)
[2018-08-01 13:37] LABS: UR EPITHELIAL CELLS <10 /HPF (<10); URINE BACTERIA NEGATIVE /HPF; URINE WBC <10 /HPF (<10)
[2018-08-01 14:00] LABS: ALB/GLOB RATIO 0.9; ALBUMIN 3.8 g/dL (3.5-5.0); CALCIUM 9.6 mg/dL (8.8-10.2); POTASSIUM 4.6 mmol/L (3.5-5.1); TOTAL BILIRUBIN 0.24 mg/dL (0.20-1.00); TOTAL PROTEIN 8.2 g/dL (6.3-8.3)
--- NOTE | 2018-08-01 16:24 | EKG Report ---
Test Performed on : 08/01/2018 2:32:25 PM Test Reason : RHYTHM EVAL Blood Pressure : / mmHG Vent. Rate : 097 BPM Atrial Rate : 102 BPM P-R Int : 000 ms QRS Dur : 114 ms QT Int : 342 ms P-R-T Axes : 000 117 -83 degrees QTc Int : 434 ms Accelerated Junctional rhythm. with frequent premature ventricular complexes. Right axis deviation ST & T wave abnormality, consider inferolateral ischemia Abnormal ECG When compared with ECG of 02-MAY-2018 16:34, Junctional rhythm. has replaced Atrial fibrillation. QRS duration has increased Unconfirmed Result
--- NOTE | 2018-08-01 16:49 | Diag Imaging Result Doc PS360 ---
EXAM: CT ABD/PELVIS W/IV CONT ONLY 08/01/2018 HISTORY: colitis TECHNIQUE: This exam was performed using automated exposure control, adjustment of mA or kV according to patient size, and/or use of iterative reconstruction technique. COMMENT: There is increased interstitial markings and atelectasis in the lung bases which has worsened somewhat since the previous study of 01/16/2018. Some of this is due to to the presence of pleural fluid on the right. The heart size is enlarged and there is a pericardial effusion. The effusion was present previously as well as the cardiomegaly. There are some atherosclerotic calcifications in the abdominal aorta and its branches. The mesenteric and renal arteries are patent however and there is no evidence of aneurysm. The liver is lobulated and inhomogeneous in contrast enhancement with periportal edema. This can be seen in cirrhosis with hepatitis. There is granulomatous calcification throughout the spleen. The spleen is nonenlarged. The adrenal glands are stable in appearance with some enlargement of the left adrenal gland. The pancreas is stable in appearance. The kidneys demonstrate some fullness of the collecting systems particularly on the right side. This was also the case on the previous study. There is no evidence of appendicitis or bowel obstruction. There is stool throughout the colon. There is no evidence of mucosal thickening in the colon. Pelvis: There is diverticulosis in the sigmoid colon without evidence of acute diverticulitis. There is some presacral edema in the rectum is somewhat distended with gas with some solid stool in the distal sigmoid. No mucosal thickening is present in the rectum, and there is no evidence of free fluid. The urinary bladder is not distended. There are scattered bone islands. There is degenerative disc disease with vacuum disc phenomenon and spinal stenosis at L5-S1 and probable spinal stenosis at the L4-5 level. IMPRESSION: Cardiomegaly, pulmonary edema, bibasilar atelectasis and right pleural effusion. Mild cirrhosis with periportal edema. This may be related to hepatitis or possibly due to passive congestion due to heart failure. No evidence of colitis. Presacral edema of uncertain etiology. Electronically signed by Preston Henson 08/01/2018 4:47 PM
[2018-08-01] MEDS ORDERED: LASIX IV ONE (17:03)
[2018-08-01 17:27] LABS: ALLEN TEST YES; BE 14.6 mmoll (-3.0-3.0); BLOOD TYPE ARTERIAL; HCO3-(ACT) 36.2 mmoll (20.0-26.0); METHB 0.9 % (0.0-1.5); O2(CT) 14.7 mL/dL (15.0-23.0); O2HB 93.2 % (95.0-99.0); PO2(98.6) 69 mmHg (60-100); SAMPLE BLOOD; SAO2 96.1 % (95.0-100.0); THB 11.2 g/dL (11.5-17.4); pH(98.6) 7.31 (7.35-7.45)
[2018-08-01 17:29] LABS: MODALITY VENTIMASK; PCO2(98.6) 88 mmHg (35-45)
--- NOTE | 2018-08-01 17:45 | Diag Imaging Result Doc PS360 ---
EXAM: CHEST-2 VIEWS - 08/01/2018 HISTORY: short of breath TECHNIQUE: Chest two views COMPARISON: 05/02/2018 FINDINGS: There is cardiomegaly similar to prior. Prominence of basilar markings similar to prior. There is a small right pleural effusion. There is no dense consolidation or pneumothorax identified. IMPRESSION: Cardiomegaly with apparent mild congestive heart failure. Electronically signed by Alexander Lew 08/01/2018 5:43 PM
[2018-08-01] MEDS ORDERED: DUONEB (A & A) INH PRN (17:51)
--- NOTE | 2018-08-01 17:54 | PROVIDER DOCUMENTATION ---
This chart was entered by Carol Gutierrez Scribe, acting as scribe for Agusto Espana MD. HPI-General Adult - General Chief Complaint: Abdominal Pain Stated Complaint: ABDOMINAL PAIN/HTN Time Seen by Provider: 08/01/18 12:53 Source: patient, family Allergies/Adverse Reactions: Patient Allergies Allergy/AdvReac Type Severity Reaction Status Date / Time sulfamethoxazole Allergy Unknown Verified 08/01/18 13:09 [From Bactrim] trimethoprim [From Bactrim] Allergy Unknown Verified 08/01/18 13:09 Home Medications: Home Medication List Medication Instructions Recorded Confirmed Last Taken Type Aspirin [Aspirin EC] 325 mg PO DAILY 08/10/13 08/01/18 03/05/17 08:00 History Calcium Citrate/Vitamin D2 1 each PO DAILY 08/10/13 08/01/18 03/05/17 08:00 History [Calcium Citrate with Vit D Tab] Digoxin 125 mcg PO DAILY 08/10/13 08/01/18 03/05/17 08:00 History Esomeprazole [Nexium] 40 mg PO DAILY 08/10/13 08/01/18 03/05/17 08:00 History Fluoxetine HCl [Prozac] 40 mg PO DAILY 08/10/13 08/01/18 03/05/17 08:00 History Isosorbide Mononitrate [Isosorbide 30 mg PO DAILY 08/10/13 08/01/18 03/05/17 08:00 History Mononitrate ER] LOVAstatin [Mevacor] 20 mg PO HS 08/10/13 08/01/18 03/05/17 18:00 History Magnesium Oxide [Mag-Ox] 400 mg PO BID 08/10/13 08/01/18 03/05/17 18:00 History Potassium Chloride [Klor-Con M20] 20 meq PO BID 08/10/13 08/01/18 03/05/17 18:00 History Docusate Sodium [Colace] 100 mg PO BID #60 capsule 03/06/17 08/01/18 Unknown Rx Acetaminophen E.r. [Tylenol 650 mg PO BID 01/17/18 08/01/18 Unknown History Arthritis] Calcium Carbonate/Vitamin D3 1 tab PO DAILY 01/17/18 08/01/18 Unknown History [Calcium 600 + Vit D Tablet] Furosemide [Lasix] 80 mg PO BID 01/17/18 08/01/18 Unknown History Gabapentin 300 mg PO BID 01/17/18 08/01/18 Unknown History Glimepiride 2 mg PO DAILY 01/17/18 08/01/18 Unknown History Lorazepam 0.5 mg PO QHS 01/17/18 08/01/18 Unknown History Ondansetron HCl [Zofran] 4 mg PO Q6H PRN 01/17/18 08/01/18 Unknown History Tramadol HCl 50 mg PO TID PRN 08/01/18 08/01/18 Unknown History - History of Present Illness -Gen Adult Nature of Presenting Problems: 83 y/o female presents to ED with weakness, low abdominal pain, and diarrhea onset 3 days ago. Pt reports she has not urinated in several days, but family states she had urine in her diaper today. Pt is alert and oriented. Location of Pain/Injury: reports: abdomen Pain Radiation: reports: no radiation Quality of Pain: reports: aching Severity: reports: mild Onset/Duration: reports: 3 days ago Timing: reports: still present Context/Activities at Onset: reports: none Modifying Factors: worse with: palpation Associated Symptoms: reports: diarrhea, weakness, other (abdominal pain; difficulty urinating) Similar Symptoms Previously?: No Recently seen or treated by another doctor?: No Review of Systems - Adult - REVIEW OF SYSTEMS - ADULT Constitutional: denies: chills, fever Eyes: reports: no symptoms reported Ears, Nose, Mouth & Throat: reports: no symptoms reported Cardiovascular: denies: chest pain, palpitations Respiratory: denies: cough, shortness of breath Gastrointestinal: reports: abdominal pain, diarrhea. denies: nausea, vomiting Genitourinary: reports: dysuria. denies: incontinence Musculoskeletal: denies: back pain, joint pain Integumentary: reports: no symptoms reported Neurological: reports: other (weakness). denies: dizziness/vertigo, seizure Psychiatric: reports: no symptoms reported Endocrine: reports: no symptoms reported Hematologic/Lymphatic: reports: no symptoms reported Allergic/Immunologic: reports: no symptoms reported All Other Systems: Reviewed and Negative Past History - Adult - PAST MEDICAL HISTORY-ADULT Review of Records: reports: Old Records Reviewed, Nursing Assessment Review, Medications Reviewed Major Childhood Illnesses: reports: denies history Cardiovascular: reports: CHF, HTN, SC Respiratory: reports: COPD Gastrointestinal: reports: GERD Obstetrical/Gynecological: reports: denies history Genitourinary: reports: denies history Musculoskeletal: reports: denies history Neurological: reports: CVA, Seizures/Epilepsy Psychiatric: reports: anxiety Endocrine/Immune: reports: Diabetes Other Conditions: reports: other cancer (skin) - PRIOR SURGERIES/PROCEDURES Surgical/Procedure History: reports: cholecystectomy, hysterectomy, - IMMUNIZATION STATUS Childhood Immunizations: See Nurse Assessment Flu Vaccine: See Nurse Assessment - FAMILY HISTORY Family History: reviewed, not pertinent - SOCIAL HISTORY Smoking: less than 1 pack/day Provider spent 3-5 mins advising pt. on dangers of tobacco.: Discussed manners to quit use, and f/u contacts for add'l counseling. Substance Use: none/never Alcohol Use Frequency: never Living Situation: family Physical Exam-General - PHYSICAL EXAM-ADULT Initial Vital Signs Reviewed: Yes - CONSTITUTIONAL General Appearance: appears well, alert, no apparent distress - EYES Eyes: PERRL/EOMI, pink conjunctivae - HEAD, EARS, NOSE, MOUTH & THROAT HENMT: normocephalic/atraumatic, moist mucous membranes, normal ENT inspection - NECK Neck: non-tender, full range of motion - RESPIRATORY Respiratory: chest non-tender, lungs clear, normal breath sounds - CARDIOVASCULAR Cardiovascular: normal peripheral pulses, regular rate, rhythm - GASTROINTESTINAL (ABDOMEN) Abdominal Exam: normal bowel sounds, soft, tenderness (diffuse), mass (large abdominal mass) - MUSCULOSKELETAL Back Exam: normal inspection, no CVA tenderness Extremity: normal range of motion, non-tender, normal gait - SKIN Integumentary: normal color, warm/dry - NEUROLOGIC Neurologic: grossly normal - PSYCHIATRIC Psych/Mental Status: normal mood/affect, normal thought content, normal thought process Progress - PLAN OF CARE/RESULTS Progress/Plan/Lab Results: Vital Signs - 8 hr 08/01/18 13:05 Temperature 98.4 F Pulse Rate 88 Respiratory Rate 17 Blood Pressure 170/95 O2 Sat by Pulse Oximetry 92 L Orders Category Date Time Status CBC WITH ELECTRONIC DIFF [HEME] Stat Lab 08/01/18 13:08 Ordered COMPREHENSIVE METABOLIC PANEL [CHEM] Stat Lab 08/01/18 13:08 Ordered LIPASE [CHEM] Stat Lab 08/01/18 13:08 Ordered URINALYSIS W/POSS RFLX CULT [URINALYSIS] Stat Lab 08/01/18 13:02 Uncollected Laboratory Tests 08/01/18 08/01/18 08/01/18 13:08 13:08 13:22 WBC 12.16 H RBC 3.88 L Hgb 11.1 L Hct 37.4 MCV 96.4 MCH 28.6 MCHC 29.7 L RDW Std Deviation 14.9 H Plt Count 200 MPV 10.6 H Immature Gran % (Auto) 0.0 Neut % (Auto) 83.8 H Lymph % (Auto) 10.8 L [place] % (Auto) 4.5 Eos % (Auto) 0.6 Baso % (Auto) 0.3 Immature Gran # (Auto) 0.00 Neut # (Auto) 10.19 H Lymph # (Auto) 1.31 [place] # (Auto) 0.55 Eos # (Auto) 0.07 Baso # (Auto) 0.04 Sodium 140 Potassium 4.6 Chloride 94 L Carbon Dioxide 37 H Anion Gap 9 BUN 23 H Creatinine 1.0 H Estimated GFR/1.73 m2 53 BUN/Creatinine Ratio 23 Glucose 181 H Calculated Osmolality 288 Calcium 9.6 Total Bilirubin 0.24 AST 21 ALT 10 Alkaline Phosphatase 93 Total Protein 8.2 Albumin 3.8 Globulin 4.4 Albumin/Globulin Ratio 0.9 Lipase 31 Urine Source CATH Urine Color YELLOW Urine Turbidity CLEAR Urine pH 6.0 Ur Specific [place] 1.021 Urine Protein 300 A Ur Glucose (Stick) NEGATIVE Ur Ketones (Stick) NEGATIVE Urine Blood TRACE A Urine Nitrite NEGATIVE Urine Bilirubin NEGATIVE Urobilinogen Dipstick 2 A Urine Leukocytes NEGATIVE Urine WBC (Auto) <10 Urine RBC (Auto) 10-20 A U Epithel Cells (Auto) <10 Urine Bacteria (Auto) NEGATIVE Laboratory Tests 08/01/18 08/01/18 08/01/18 13:08 13:08 13:22 WBC 12.16 H RBC 3.88 L Hgb 11.1 L Hct 37.4 MCV 96.4 MCH 28.6 MCHC 29.7 L RDW Std Deviation 14.9 H Plt Count 200 MPV 10.6 H Immature Gran % (Auto) 0.0 Neut % (Auto) 83.8 H Lymph % (Auto) 10.8 L [place] % (Auto) 4.5 Eos % (Auto) 0.6 Baso % (Auto) 0.3 Immature Gran # (Auto) 0.00 Neut # (Auto) 10.19 H Lymph # (Auto) 1.31 [place] # (Auto) 0.55 Eos # (Auto) 0.07 Baso # (Auto) 0.04 Specimen Type Sample Site pH pCO2 pO2 HCO3 Base Excess Oxyhemoglobin ABG O2 Sat (Calculated) ABG O2 Saturation ABG Carboxyhemoglobin ABG Methemoglobin [place]into Test A-a O2 Difference Total Hemoglobin Lactate Liter Flow Blood Gas Modality FiO2 % Sodium 140 Potassium 4.6 Chloride 94 L Carbon Dioxide 37 H Anion Gap 9 BUN 23 H Creatinine 1.0 H Estimated GFR/1.73 m2 53 BUN/Creatinine Ratio 23 Glucose 181 H Calculated Osmolality 288 Calcium 9.6 Total Bilirubin 0.24 AST 21 ALT 10 Alkaline Phosphatase 93 Total Protein 8.2 Albumin 3.8 Globulin 4.4 Albumin/Globulin Ratio 0.9 Lipase 31 Urine Source CATH Urine Color YELLOW Urine Turbidity CLEAR Urine pH 6.0 Ur Specific [place] 1.021 Urine Protein 300 A Ur Glucose (Stick) NEGATIVE Ur Ketones (Stick) NEGATIVE Urine Blood TRACE A Urine Nitrite NEGATIVE Urine Bilirubin NEGATIVE Urobilinogen Dipstick 2 A Urine Leukocytes NEGATIVE Urine WBC (Auto) <10 Urine RBC (Auto) 10-20 A U Epithel Cells (Auto) <10 Urine Bacteria (Auto) NEGATIVE 08/01/18 17:15 WBC RBC Hgb Hct MCV MCH MCHC RDW Std Deviation Plt Count MPV Immature Gran % (Auto) Neut % (Auto) Lymph % (Auto) [place] % (Auto) Eos % (Auto) Baso % (Auto) Immature Gran # (Auto) Neut # (Auto) Lymph # (Auto) [place] # (Auto) Eos # (Auto) Baso # (Auto) Specimen Type ARTERIAL Sample Site R RADIAL pH 7.31 L pCO2 88 H* pO2 69 HCO3 36.2 H Base Excess 14.6 H Oxyhemoglobin 93.2 L ABG O2 Sat (Calculated) 14.7 L ABG O2 Saturation 96.1 ABG Carboxyhemoglobin 2.20 ABG Methemoglobin 0.9 [place] Test YES A-a O2 Difference 106.0 Total Hemoglobin 11.2 L Lactate 0.60 Liter Flow 15.0 Blood Gas Modality VENT[place] FiO2 % 40.0 Sodium Potassium Chloride Carbon Dioxide Anion Gap BUN Creatinine Estimated GFR/1.73 m2 BUN/Creatinine Ratio Glucose Calculated Osmolality Calcium Total Bilirubin AST ALT Alkaline Phosphatase Total Protein Albumin Globulin Albumin/Globulin Ratio Lipase Urine Source Urine Color Urine Turbidity Urine pH Ur Specific [place] Urine Protein Ur Glucose (Stick) Ur Ketones (Stick) Urine Blood Urine Nitrite Urine Bilirubin Urobilinogen Dipstick Urine Leukocytes Urine WBC (Auto) Urine RBC (Auto) U Epithel Cells (Auto) Urine Bacteria (Auto) Result Diagrams: 08/01/18 13:08 08/01/18 13:08 - EKG 1 Time of EKG reading by physician:: 14:32 EKG Read and Signed by:: Agusto Espana EKG Interpretation (*Must complete 3 of following elements*): Abnormal Rate: 97 Rhythm: Accelerated Junctional with frequent PVCs [place]: right QRS: PVC's CO Interval: normal ST Wave: non-specific ST changes (consider inferolateral ischemia) - CT/MRI 1 CT Study: Abdomen, Pelvis Impression: Abnormal (COMMENT: There is increased interstitial markings and atelectasis in the lung bases which has worsened somewhat since the previous study of 01/16/2018. Some of this is due to to the presence of pleural fluid on the right. The heart size is enlarged and there is a pericardial effusion. The effusion was present previously as well as the cardiomegaly. There are some atherosclerotic calcifications in the abdominal aorta and its branches. The mesenteric and renal arteries are patent however and there is no evidence of aneurysm. The liver is lobulated and inhomogeneous in contrast enhancement with periportal edema. This can be seen in cirrhosis with hepatitis. There is granulomatous calcification throughout the spleen. The spleen is nonenlarged. The adrenal glands are stable in appearance with some enlargement of the left adrenal gland. The pancreas is stable in appearance. The kidneys demonstrate some fullness of the collecting systems particularly on the right side. This was also the case on the previous study. There is no evidence of appendicitis or bowel obstruction. There is stool throughout the colon. There is no evidence of mucosal thickening in the colon. Pelvis: There is diverticulosis in the sigmoid colon without evidence of acute diverticulitis. There is some presacral edema in the rectum is somewhat distended with gas with some solid stool in the distal sigmoid. No mucosal thickening is present in the rectum, and there is no evidence of free fluid. The urinary bladder is not distended. There are scattered bone islands. There is degenerative disc disease with vacuum disc phenomenon and spinal stenosis at L5-S1 and probable spinal stenosis at the L4-5 level. IMPRESSION: Cardiomegaly, pulmonary edema, bibasilar atelectasis and right pleural effusion. Mild cirrhosis with periportal edema. This may be related to hepatitis or possibly due to passive congestion due to heart failure. No evidence of colitis. Presacral edema of uncertain etiology. Electronically signed by Preston Henson 08/01/2018 4:47 PM) - CONSULTS/PCP/HOSPITALIST Notification #1 *Consult/PCP/Hospitalist*: OMI Ha for Dr. Yang Time Discussed: 17:25 Reason/Comments: SOB, abdominal pain, hypoxemia Consult Disposition: Admit Departure - Departure Date of Disposition Decision: 08/01/18 Time of Disposition Decision: 16:59 DIAGNOSIS: SOB (shortness of breath), Hypoxemia Abdominal pain Qualifiers: Abdominal location: unspecified location Qualified Code(s): R10.9 - Unspecified abdominal pain Disposition: ADMITTED INPATIENT 09 Certified Medical Emergency: Emergent Condition: Stable Additional Freetext Instructions: ED Follow Up Instructions: You have been treated by a care provider in the Emergency Department. These instructions are being provided to you so you can have an understanding of how to care for yourself upon discharge. Upon discharge from the Emergency Department, you are responsible for making arrangements for follow-up care by a physician of your choice. Take all prescribed medications as directed. Return to the Emergency Department immediately for any new or worsening symptoms. You may call the Physician Referral phone number at [phone] to obtain a list of Physicians who are taking new patients. Referrals and Follow-Ups: Lyle Sands MD [Primary Care Provider] - Discharge Education: Steps to Quit Smoking, [id number] - Critical Care Note This patient required my direct & personal management of CC.: Yes Total Time (mins): 38 Critical Care Statement: This patient required my direct personal management to treat or rule out processes, the absence of which, could potentiallly result in sudden, clinically significant life or limb threatening deterioration. Attestation - Physician/ [place]OR[place] Attestation Patient care was provided by Advanced Practice Provider:: No The physician spent face to face time with patient:: Yes Advanced Practice Provider documentation review:: Supervising physician onsite and consulted in the evaluation and care of this patient. The physician did have a face to face encounter with the patient. This chart was documented by the indicated scribe, (Carol Gutierrez, Scribponcho) and accurately reflects the services I performed and decisions made by me, Agusto Espana MD, as attested by the provider's signature.
[2018-08-01] MEDS ORDERED: ZOFRAN IV PRN (17:55)
[2018-08-01] MEDS ORDERED: SODIUM CHLORIDE 0.9% INJ SCH (18:00)
[2018-08-01] MEDS ORDERED: PROTONIX IV SCH (18:00)
[2018-08-01] MEDS: ZITHROMAX PO SCH (18:05)
[2018-08-01] MEDS: ROCEPHIN 1 GM in NS 50 ML IV SCH (18:05)
[2018-08-01] MEDS: DUONEB (A & A) INH SCH ×2 (19:15→23:35)
--- NOTE | 2018-08-01 19:45 | HISTORY AND PHYSICAL ---
ADDENDUM - HISTORY AND PHYSICAL: I have seen and examined Ms. Cruz today in the ER. The daughter was at the bedside at the time of the encounter. Ms. Cruz was brought in to the emergency department because the daughter thinks that she has been remarkably getting weaker over the course of the weeks. She also has ongoing diarrhea and this morning when Home Health went to check on her, her oxygen level was extremely low and she was hypertensive, so she was recommended to come to the emergency department. Upon presenting to the emergency department, she was found to have a blood pressure of 170/95, O2 saturation was 92. It went all the way down to 74 at some point. PHYSICAL EXAMINATION: CHEST: Her physical exam is positive for the chest which air entry is bilaterally reduced. LUNGS: There were some crepitations to both lung skinner. CARDIOVASCULAR: There is regular rate and rhythm. There is about 2/6 TR murmur. ABDOMEN: Abdomen is soft, is distended. There is some tenderness all over. There is an old midline infraumbilical surgical scar. EXTREMITIES: There was not any pedal edema. LABORATORY DATA: I also review her lab works. IMAGING STUDIES: A CT scan of the abdomen and pelvis does show cardiomegaly, pulmonary edema, bibasilar atelectasis and right pleural effusion. There is also mild cirrhosis with periportal edema. There is some evidence of constipation as well. ASSESSMENT: 1. Hypoxemic respiratory failure. The patient is currently on BiPAP. Oxygenation seems to be tolerating that well. 2. Anasarca evidenced by bilateral pulmonary edema with pleural effusions and pericardial effusion. I think this is most likely a cardiac origin. We will start the patient on IV diuretic therapy. We will also add spironolactone and continue monitoring her I's and O's. 3. Suspected congestive heart failure, likely diastolic in origin. There is an echocardiogram in the system from 2016. At the time, the patient had an ejection fraction of about 54%. We are going to repeat this and follow up if there are any new findings. 4. Cirrhosis of the liver. Etiology is unclear. 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 We will do the viral titers to rule out any underlying chronic viral hepatitis as a course. 5. Hypertensive urgency/emergency. Patient's blood pressure was extremely high on presentation when it was associated with respiratory symptoms. This was addressed in the ER. Blood pressure is now a lot better. We are going to continue with her home medications. 6. History of chronic atrial fibrillation, currently rate controlled. We will continue with her home medications. 7. Severe pulmonary hypertension on previous echocardiogram where RV systolic pressure was about 82 mm, suggesting pulmonary hypertension. We will repeat the echocardiogram this time around and follow it up accordingly. 8. Constipation. The CT report does obviously show some stool, some constipation pattern. However, Anthony Pathak is said to also be having diarrhea. I think it is probably an overflow incontinence. We are going to start her on bowel regimen to help with bowel movements. 9. Generalized weakness and deconditioning. We will get Physical Therapy to start working with her and we will also get [facility] to arrange for rehab placement. 10. Please refer to the details of the H and P dictated by the nurse practitioner in the chart. cc: Naren Yang MD
--- NOTE | 2018-08-01 20:17 | HISTORY AND PHYSICAL ---
CHIEF COMPLAINT: Abdominal pain. HISTORY OF PRESENT ILLNESS: This is a very pleasant 83-year-old female who presents to the emergency room complaining of generalized abdominal pain. She states, thinking back, that she has had abdominal pain off and on for the last 2 to 3 months. The daughter is at the bedside and she can remember her complaining back around as far as April or May. She states that she has had just intermittent crampy type pain. She has had anorexia off and on during this time, and she states for the last probably 4 to 6 weeks that food just does not taste right, although she continues to eat on the urging of her children. She denied any vomiting, any constipation. She has had diarrhea over the last week. She denies any black or bloody vomitus or stools.CT scan with IV contrast was performed, which revealed cardiomegaly and pulmonary edema with bibasilar atelectasis, as well as mild cirrhosis with periportal edema. When discussing this with the family, the patient nor the children remember ever hearing that she had any cirrhosis diagnoses, or any diagnoses with any abnormality with her liver, nor has she had elevated enzymes. They did state that she had her gallbladder removed, but had no difficulty afterwards. PAST MEDICAL HISTORY: 1. Diabetes mellitus type 2. 2. Chronic atrial fibrillation. 3. Chronic diastolic heart failure. 4. Hypertension. 5. Dyslipidemia. 6. Gastroesophageal reflux disease. 7. Anxiety disorder. 8. Depression. 9. Osteopenia. 10. History of subdural hematoma, related to warfarin therapy, after which warfarin was discontinued. SOCIAL HISTORY: She denies any alcohol, tobacco, or illicit drug use. She is retired. She lives with her son. She has another son and daughter that are very close and active in her care. ALLERGIES: Bactrim. HOME MEDICATIONS: A list will be obtained by the nursing staff and once verified, will review and restart as appropriate. REVIEW OF SYSTEMS: Discussed with the patient and daughter with pertinent positives stated in the HPI. She denied any syncope, dizziness, any chest pain, palpitations, any night sweats, any shortness of breath, cough, fever, chills, temperature, any vomiting, any black or bloody vomitus or stools, any hematuria, dysuria, frequency, urgency. PHYSICAL EXAMINATION: GENERAL: This is an 83-year-old female who is lying in the bed on BiPAP at present, in no distress. VITAL SIGNS: Blood pressure is 135/90 with a heart rate of 81, respirations are 18, temperature is 97.7 degrees, with O2 saturation that are 97% to 98% on BiPAP. EYES: Pupils are equal, round, react to light. EOMs are intact. Sclerae anicteric. HEAD: Head is normocephalic, atraumatic. ENT: Mucous membranes are moist. NECK: Supple. Trachea midline. She has no JVD. CARDIOVASCULAR: Irregularly irregular rate and rhythm. S1 and S2 are appreciated. She has no lower extremity edema. Peripheral pulses are palpable x4 extremities, and calves are nontender to palpation. PULMONARY: Breath sounds are clear with no increased work of breathing noted. GASTROINTESTINAL: Abdomen is large, distended, with diffuse tenderness, with bowel sounds in all 4 quadrants. GENITOURINARY: Ross is patent to bedside bag with dark yellow urine draining. SKIN: Warm and dry with no rashes or lesions noted. NEUROLOGIC: She is alert and oriented x3. LABS: WBC is 12.1 with hemoglobin 11.1, hematocrit 37.4, and platelets 200,000. Sodium is 140, potassium 4.6, BUN 23, creatinine 1, with a glucose reading of 181. Catheterized urine for urinalysis is positive for blood with 10 to 20 microscopic red blood cells. She has less than 10 white blood cells, epithelial cells, and negative bacteria. CT of the abdomen and pelvis reveals cardiomegaly, pulmonary edema, bibasilar atelectasis, and right pleural effusion. There is mild cirrhosis with periportal edema which may be related to hepatitis or to passive congestion due to heart failure. No evidence of colitis. ASSESSMENT AND PLAN: 1. Abdominal pain. The patient will be n.p.o. at present. Will give morphine 2 mg every 3 hours p.r.n. 2. Cirrhosis, with periportal edema. We will obtain an hepatic panel. We will consult GI for further evaluation. 3. Bibasilar atelectasis. Will obtain blood cultures and start incentive spirometer. We will continue with BiPAP and give antibiotic coverage with Rocephin and azithromycin, and any further antibiotics will be culture driven. 4. Atrial fibrillation, chronic. We will continue her Lanoxin. She will be placed on telemetry. Of note, the patient is not on any anticoagulation secondary to subdural bleed. 5. Hypertension. After diuresis of about 800 mL, the patient's blood pressures did decrease to the 140s over 80s. We will continue to monitor. We will identify her home medications. 6. Diabetes mellitus type 2. She will be placed on patterned blood glucose with sliding scale insulin. 7. Chronic diastolic congestive heart failure. Her last echocardiogram was in 2016. We will obtain an echocardiogram. 8. Gastroesophageal reflux Gastroesophageal reflux disease. She will be placed on a proton pump inhibitor. 9. Generalized weakness. The family states that the patient has had some difficulty ambulating. She has been very weak and prone to falls. consult Physical Therapy and also Machining Technician for discharge planning. Further treatments pending hospital course. Dictated by OMI Schneider for Naren Yang MD cc: OMI Schneider MD MTDD
[2018-08-01] MEDS: LASIX IV SCH (22:00)
[2018-08-01] MEDS: MORPHINE IV PRN (22:03)
[2018-08-01] MEDS: HUMALOG SUBQ SCH (22:08)
[2018-08-02] MEDS: HUMALOG SUBQ SCH ×4 (06:21→20:23)
[2018-08-02] MEDS: DUONEB (A & A) INH SCH ×5 (07:32→23:30)
[2018-08-02 08:04] LABS: INR 1.03; PROTIME 14.3 Seconds (11.0-16.0)
[2018-08-02 08:14] LABS: ALB/GLOB RATIO 0.8; ALBUMIN 3.5 g/dL (3.5-5.0); CALCIUM 9.3 mg/dL (8.8-10.2); IRON SATURATION 12 %; PHOSPHORUS 3.4 mg/dL (2.7-4.5); POTASSIUM 4.6 mmol/L (3.5-5.1); TIBC 241 ug/dL; TOTAL BILIRUBIN 0.25 mg/dL (0.20-1.00); TOTAL IRON 29 ug/dL (49-151); UNBOUND IRON 212 ug/dL (112-346)
[2018-08-02 08:17] LABS: BASO# 0.03 X1000 (0.0-0.2); BASO% 0.3 % (0.0-0.8); EOS# 0.11 X1000 (0.0-0.7); EOS% 1.1 % (0.0-10.0); HEMATOCRIT 38.5 % (37.0-47.0); HEMOGLOBIN 11.2 g/dL (12.0-16.0); IMM GRAN# 0.03 X1000 (0.0-0.04); IMM GRAN% 0.3 % (0.0-0.5); LYMPH# 1.18 X1000 (1.2-3.4); LYMPH% 11.7 % (20.5-51.1); MCH 28.4 PG (27-31); MCHC 29.1 g/dL (33-37); MCV 97.5 FL (81-99); MONO# 0.35 X1000 (0.11-0.59); MONO% 3.5 % (1.7-9.3); MPV 10.1 FL (7.4-10.4); NEUT# 8.38 X1000 (1.4-6.5); NEUT% 83.1 % (42.2-75.2); PLT 176 X1000 (130-400); RBC 3.95 XMIL (4.2-5.4); RDW 15.1 % (11.5-14.5); WBC 10.08 X1000 (4.8-10.8)
[2018-08-02 08:34] LABS: FERRITIN 144 ng/mL (13-150)
[2018-08-02] MEDS ORDERED: IMDUR PO SCH (09:00)
[2018-08-02 09:02] LABS: ALLEN TEST YES; BE 20.8 mmoll (-3.0-3.0); BLOOD TYPE ARTERIAL; HCO3-(ACT) 41.1 mmoll (20.0-26.0); METHB 1.4 % (0.0-1.5); O2(CT) 15.1 mL/dL (15.0-23.0); O2HB 94.1 % (95.0-99.0); PO2(98.6) 76 mmHg (60-100); SAMPLE BLOOD; SAO2 97.4 % (95.0-100.0); THB 11.4 g/dL (11.5-17.4)
[2018-08-02 09:05] LABS: MODALITY BI PAP; PCO2(98.6) 80 mmHg (35-45)
[2018-08-02 09:21] LABS: EOS 1 % (1-10); LYMPHS 11 % (21-51); MONO 4 % (1-9); SEGS 84 % (42-75)
[2018-08-02 09:22] LABS: POIKILOCYTOSIS 1+; TARGET CELLS 1+
[2018-08-02] MEDS: PRILOSEC PO SCH (09:43)
[2018-08-02] MEDS: LANOXIN PO SCH (09:44)
[2018-08-02] MEDS: LASIX IV SCH ×2 (09:45→20:22)
[2018-08-02] MEDS: ASPIRIN EC PO SCH (09:45)
[2018-08-02] MEDS: ALDACTONE PO SCH (09:45)
[2018-08-02] MEDS: ZITHROMAX PO SCH (09:45)
[2018-08-02] MEDS: MORPHINE IV PRN ×3 (10:00→18:30)
--- NOTE | 2018-08-02 10:30 | Diag Imaging Result Doc PS360 ---
EXAM: CHEST-PORTABLE HISTORY: dyspnea TECHNIQUE: Chest single view COMPARISON: 08/01/2018 FINDINGS: The lungs are well expanded. Marked cardiomegaly remains. There are bilateral infiltrates/pulmonary edema similar to the prior exam. Small right pleural effusion. IMPRESSION: No interval improvement. Electronically signed by Wayne Richmond 08/02/2018 10:28 AM
[2018-08-02] MEDS ORDERED: VENOFER 200 MG in NS 100 ML IV ONE (10:50)
--- NOTE | 2018-08-02 11:52 | PROGRESS NOTE ---
DATE: 08/02/2018 SUBJECTIVE: This morning, Ms. Cruz continues to refer some shortness of breath. OBJECTIVE: Vital signs: Blood pressure is 162/91, pulse of 79, respirations 18, temperature is 98.2 degrees. General: Ms. Cruz is an 83-year-old elderly female. She was in bed, did not was not in any distress. HEENT: Mucosa is pink and moist. Anicteric. Acyanotic. Neck: Supple. There is positive JVD. Respiratory: Air entry is bilaterally reduced. There is crackles in posterior lung skinner bilaterally. Cardiovascular: Regular rate and rhythm. There is a 2/6 TR murmur. Gastrointestinal: Abdomen is soft, distended but nontender. There is an old infraumbilical surgical scar. Extremities: No pedal edema. Central nervous system: Patient is awake is alert and oriented to person and to place but disoriented to time. The patient follows some basic commands. LABORATORY DATA: WBC is 10.08, hemoglobin is 11.3, platelet count of 176,000. Chemistry is also reviewed. Bicarb is 40. DIAGNOSTIC STUDIES: A chest x-ray this morning shows lungs are well-expanded. There is marked cardiomegaly. There are bilateral infiltrates/pulmonary edema similar to prior. There is a small right pleural effusion. Iron studies shows a percent saturation is 12 with a ferritin of 144, which is consistent with some iron deficiency. ASSESSMENT: 1. Acute on chronic hypercarbic respiratory failure. We are going to be using the BiPAP intermittently but more specifically at the time of sleeping. 2. Acute hypoxemic respiratory failure. 3. Anasarca evidenced by bilateral pulmonary edema, pleural effusions and pericardial effusion. Presumably etiology is cardiac. We will continue with the diuretic therapy and there is an echocardiogram pending. 4. Cirrhosis of the liver. Etiology is unclear. 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 GI has been consulted. 5. Uncontrolled hypertension on presentation, improved. 6. Chronic atrial fibrillation, currently rate controlled. 7. Severe pulmonary hypertension on previous echocardiogram with right ventricular systolic pressure of 82 mmHg noted. 8. Constipation. Will continue bowel regimen. 9. Iron deficiency. We will give the patient a 1 time infusion of iron Venofer. 10. Generalized weakness and deconditioning. Physical Therapy has been consulted. PLAN: So in general, Ms. Cruz continues to be symptomatic. She is hypoxemic and also hypercarbic. We are going to continue using the BiPAP intermittently and to cycle with nasal cannula. She will be continued with the diuretic therapy and antibiotics and continue current management. cc: Naren Yang MD MTDD
--- NOTE | 2018-08-02 13:55 | ECHO REPORT ---
ORDER DATE: 08/01/2018 INDICATION: CHF, COPD, atrial fibrillation. FINDINGS: 1. The right atrium is moderately enlarged. 2. Severe tricuspid regurgitation. RV systolic pressure of 96 suggesting pulmonary hypertension. 3. Normal RV size and systolic function. 4. No significant pulmonic insufficiency. 5. Moderate left atrial enlargement. 6. No mitral valve prolapse. Mild mitral regurgitation. No mitral stenosis. 7. Normal LV size, end-diastolic dimension of 4 cm. Normal wall thicknesses with a posterior and interventricular septal wall thickness of 1.1 and 1.0 cm respectively. Normal LV systolic function. Estimated EF is 65% with normal wall motion. 8. Aortic valve opens well. No evidence of stenosis or insufficiency. 9. Aorta appears normal in visualized segments. 10. There may be a very small posterior pericardial effusion that is not seen in all views. There does not appear to be any clear evidence of tamponade-type physiology. Again, this is a difficult study and again, if it is present, it is not seen in all views. cc: MD Nimisha Rg CRNP
[2018-08-02 14:13] LABS: HEPATITIS PROFILE ACUTE SEE COMMENTS
--- NOTE | 2018-08-02 14:56 | Diag Imaging Result Doc PS360 ---
EXAM: US ABDOMEN-COMPLETE HISTORY: ? Cirrhosis and abdominal pain TECHNIQUE: Abdominal ultrasound COMPARISON: None. FINDINGS: Normal pancreatic head and body. Pancreatic tail is obscured. No abdominal aortic aneurysm. Normal inferior vena cava. There is at least a small right pleural effusion. No focal hepatic abnormality although there is likely fatty infiltration. The gallbladder has been removed. The common bile duct measures 5 mm. The right kidney measures 9.0 cm in length with increased renal echotexture. No hydronephrosis. The left kidney measures 9.2 cm in length. Normal renal echotexture. No hydronephrosis. Normal spleen. No ascites. IMPRESSION: 1.Cholecystectomy 2.Mild increased renal echotexture consistent with medical renal disease 3.Right pleural effusion 4.Fatty infiltration of the liver Electronically signed by Wayne Richmond 08/02/2018 2:54 PM
--- NOTE | 2018-08-02 15:19 | GASTROENTEROLOGY CONSULTATION ---
DATE: 08/02/2018 REQUESTING PHYSICIAN: Dr. Yang. PRIMARY PHYSICIAN: Dr. Lyle Sands. REASON FOR CONSULTATION: Question of cirrhosis. HISTORY OF PRESENT ILLNESS: Ms. Cruz is an 83-year-old female who was admitted on 08/01/2018 for generalized abdominal pain. According to the patient's family at bedside, the patient lives at home with 1 of her sons. She has history of off and on constipation and diarrhea. She has been having intermittent abdominal discomfort for the last 2 or 3 months. In the hospital, she was noted to have worsening hypertension and a CT scan of the abdomen, pelvis and chest showed evidence of cardiomegaly, pulmonary edema, bibasilar atelectasis as well as cirrhosis with periportal edema. According to the patient's family, the patient has never been diagnosed with liver cirrhosis in the past. Going back in the records. She has had a CT scan done in 2017 which showed evidence of diverticulosis and persistent cardiomegaly with pericardial effusion, and there was evidence of scattered hepatic and splenic granulomas. The spleen is not enlarged at that time. Prior to that, in 2016 she had imaging done, a CT scan abdomen and pelvis showed evidence of moderate cardiomegaly with moderate pericardial effusion, cholelithiasis, mild colonic diverticulosis. At that time, the liver also noted to be normal. The patient and family deny any previous history of hepatitis or any other familial history of liver disease. PAST MEDICAL HISTORY: Type 2 diabetes, chronic atrial fibrillation, chronic diastolic heart failure, hypertension, hyperlipidemia, gastroesophageal reflux disease, diverticulosis, constipation, diarrhea, anxiety disorder, depression, osteopenia, history of subdural hematoma, while on warfarin therapy after which warfarin was discontinued. SOCIAL HISTORY: She denies history of alcohol, tobacco, illicit drugs. She is retired. She lives with her son. She has another son and daughter who are very close, present at bedside. ALLERGIES: Bactrim. PAST SURGICAL HISTORY: Cholecystectomy, hysterectomy, skin cancer removal. MEDICATIONS: In the hospital include: 1. Morphine. 2. Albuterol/ipratropium. 3. Aspirin 325 every day. 4. Azithromycin. 5. Digoxin. 6. Lasix. 7. Humalog sliding scale. 8. Isosorbide mononitrate. 9. Omeprazole 40 mg daily. 10. Zofran 4 mg IV every 4 hours. 11. Ceftriaxone 1 g every day. 12. Aldactone every day. 13. Lasix 60 mg IV once. She is currently on BiPAP and having trouble breathing. She is a on diabetic diet. REVIEW OF SYSTEMS: Denies any fevers, rigors, chills but patient had gone into respiratory distress. She is on BiPAP. She did complain of discomfort in the abdomen. Review of systems limited as the patient is currently on BiPAP. PHYSICAL EXAMINATION: Vital signs: Temperature 98.2 degrees, pulse rate 79, respiratory rate 18, blood pressure 162/91 saturating 9%% on BiPAP. Body weight of 175 pounds. BMI 29.1 kg. General: Patient is moderately well nourished, lying bed and currently on BiPAP. HEENT: No pallor. No icterus. BiPAP face mask in place. Neck: Supple. Abdomen: Discomfort in the periumbilical and left lower quadrant. Mild protuberance. No guarding or rebound. Extremities: No cyanosis or clubbing. Neurologic: She is awake, alert, but was hard to communicate with because of the patient's BiPAP mask. LABORATORY DATA: Hemoglobin and hematocrit 11.2 and 38.5, white count of 10.08, platelet count of 176,000. Her INR 1.03, PT of 14.3. ABG showing pH 7.40, pCO2 80, PO2 76. This is on BiPAP at 40% FiO2. Sodium of 142, potassium 4.6, chloride 96, bicarb of 49, with BUN of 21, creatinine 1, glucose of 124, calcium 9.3. Phosphorus 3.4, magnesium 2.2. Iron level of 29, % saturation 12, ferritin of 144. Total bilirubin is 0.25, AST 20, ALT 9, alkaline phosphatase 89, total protein is 8, albumin of 3.5. B12 of 1006, vitamin D level 40.1. Urinalysis showing positive protein, trace blood and 10 to 20 red cells. Her blood culture x2 have been drawn from yesterday, currently pending. IMAGING: Chest x-ray done showed cardiomegaly with apparent mild congestive heart failure. Her CT of the abdomen and pelvis showed cardiomegaly, pulmonary edema, bibasilar atelectasis, right pleural effusion, mild cirrhosis with periportal edema. This may be related to hepatitis or possible possibly due to passive congestion due to heart failure. No evidence of any colitis, presacral edema of unclear etiology. IMPRESSION AND PLAN: 1. New diagnosis of questionable liver cirrhosis. I believe this could be secondary to congestive heart failure. We will check a hepatitis panel. We will obtain an ultrasound of the abdomen. 2. Abdominal pain. This could be secondary to constipation or diverticulosis. We will start on bowel regimen. 3. Gastrointestinal prophylaxis with proton pump inhibitors. 4. Respiratory distress. This is being managed by the primary care team. She is on a BiPAP mask. 5. Atrial fibrillation, chronic. This is being managed by the primary care team. 6. Congestive heart failure, cardiomegaly. This is being managed by the primary team. 7. Type 2 diabetes, on sliding scale insulin. 8. Reflux disease. Aware. The patient will continue proton pump inhibitors. 9. We will follow along. The above plan of care discussed with the patient and family at bedside and all questions answered. Please call us with any further questions. cc: MD Lyle Grijalva MD MTDD
--- NOTE | 2018-08-02 16:22 | EKG Report ---
Test Performed on : 08/02/2018 4:15:41 PM Test Reason : dyspnea Blood Pressure : / mmHG Vent. Rate : 080 BPM Atrial Rate : 202 BPM P-R Int : 000 ms QRS Dur : 074 ms QT Int : 366 ms P-R-T Axes : 000 114 265 degrees QTc Int : 422 ms Atrial fibrillation. Right axis deviation ST & T wave abnormality, consider inferior ischemia Abnormal ECG When compared with ECG of 01-AUG-2018 14:32, (Unconfirmed) Atrial fibrillation. has replaced Junctional rhythm. QRS duration has decreased Confirmed by Raj COSME, Yusuf Vergara ([id number]) on 08/03/2018 10:57:18 AM
[2018-08-02] MEDS ORDERED: LOVENOX SUBQ ONE ×2 (16:38→18:30)
[2018-08-02] MEDS ORDERED: DIAMOX PO ONE (16:39)
[2018-08-02] MEDS: ROCEPHIN 1 GM in NS 50 ML IV SCH (18:02)
[2018-08-02] MEDS: DULCOLAX PR SCH (20:22)
--- NOTE | 2018-08-02 20:34 | CONSULTATION ---
DATE OF CONSULTATION: 08/02/2018 IMPRESSION: 1. Right-sided congestive heart failure related to severe pulmonary hypertension. 2. Bilateral pulmonary infiltrates with prominent atelectasis bilaterally with clinical data suggesting hypoventilation, possible pneumonia, and possible pulmonary edema. 3. Asymmetric edema left lower extremity calf. Consider possible deep venous thrombosis. 4. Limited mobility. Patient has not been very ambulatory for about 3 years and requires a great deal of assistance at home. She also has history of previous fall while on anticoagulation with warfarin suffering a subdural hematoma. 5. Chronic atrial fibrillation. 6. Hypertension. 7. Gastroesophageal reflux. 8. Anxiety disorder. RECOMMENDATIONS: 1. Continued efforts to diurese. 2. Lovenox 1 mg/kg subcutaneous now. 3. Venous Doppler study left lower extremity. 4. If no evidence of deep venous thrombosis, mobilize the patient as best possible. 5. Conservative cardiovascular management overall. HISTORY: This 83-year-old, white female with past history of chronic atrial fibrillation, pulmonary hypertension, hypertension, hyperlipidemia, and anxiety disorder was admitted from the emergency room after she presented with diffuse generalized abdominal discomfort. She is noted to have abnormal chest x-ray with bilateral pulmonary infiltrates and cardiomegaly. Arterial blood gas demonstrated significant hypercapnia. She had significant edema as well. She has had generalized weakness for some time now and really has not ambulated much over the past 3 years. She has bedside commode and lives with family but pretty much lives a bed to recliner existence with help of family to make transfers. There has been no chest pain. PAST MEDICAL HISTORY: 1. Chronic atrial fibrillation. 2. Diastolic heart failure. 3. Pulmonary hypertension. 4. Hypertension. 5. Hyperlipidemia. 6. Gastroesophageal reflux disease. 7. Anxiety disorder/depression. 8. History of previous subdural hematoma while on warfarin, which was precipitated by a fall. 9. She is allergic or intolerant to Bactrim. MEDICATIONS PRIOR TO ADMISSION: As listed. SOCIAL HISTORY: She does not smoke or use alcohol. She lives with family. Specifically she lives with her son. FAMILY HISTORY: Negative for premature coronary disease. REVIEW OF SYSTEMS: Pulmonary: Noteworthy for some tendency for shortness of breath. There has been no orthopnea. Gastrointestinal: Noncontributory. Constitutional: Negative/noncontributory. Remainder of review of systems negative/noncontributory with 14 total systems reviewed. PHYSICAL EXAMINATION: General: This is an obese, elderly white female in no distress on supplemental oxygen. Vital signs: Blood pressure 159/82, heart rate 80 and irregular, oxygen saturation 94% on supplemental oxygen. HEENT Exam: Extraocular movements appear intact. Mucous membranes are moist. Neck: Supple. Jugular distention is evident consistent with central venous pressure greater than 14 cm. There are no carotid bruits. Chest: Auscultation of chest reveals diminished air movement bilaterally. No rales could be appreciated. There is diminished breath sounds in the bases bilaterally. Cardiac Exam: Reveals an irregular rate and rhythm without appreciable murmur or gallop. Abdomen: Soft. Bowel sounds audible. Extremities: Noteworthy for asymmetrical edema involving left calf. DIAGNOSTICS: Twelve-lead EKG demonstrates atrial fibrillation with frequent premature ventricular or aberrantly conducted complexes, right axis deviation and nonspecific ST and T-wave abnormality. Laboratory data includes a white blood cell count of 10.0, hematocrit 38.5, hemoglobin 11.2, platelet count 176,000. Initial arterial blood gas with a pH of 7.31, pCO2 of 88, pO2 of 69 on supplemental oxygen per Ventimask at 40%. Repeat arterial blood gas today demonstrates pH 7.4, pCO2 of 80, pO2 of 76 on BiPAP with 40% oxygen. Sodium 144, potassium 4.6, chloride 96, carbon dioxide 40, BUN 21, creatinine 1.0, glucose 124, AST 20, ALT 9, albumin 3.5. Chest x-ray was reviewed and demonstrates cardiomegaly and bilateral atelectasis with possible superimposed pulmonary edema. cc: Karlo Arellano MD [facility]
[2018-08-03 03:54] LABS: BLOOD TYPE ARTERIAL; SAMPLE BLOOD
[2018-08-03 03:55] LABS: ALLEN TEST YES; BE 19.9 mmoll (-3.0-3.0); HCO3-(ACT) 40.4 mmoll (20.0-26.0); METHB 1.3 % (0.0-1.5); O2(CT) 14.7 mL/dL (15.0-23.0); PO2(98.6) 97 mmHg (60-100); SAO2 99.3 % (95.0-100.0); THB 10.8 g/dL (11.5-17.4)
[2018-08-03 03:58] LABS: MODALITY BI PAP; PCO2(98.6) 78 mmHg (35-45)
[2018-08-03] MEDS: PRILOSEC PO SCH (06:09)
[2018-08-03] MEDS: HUMALOG SUBQ SCH ×3 (06:09→16:48)
[2018-08-03] MEDS: DUONEB (A & A) INH SCH ×5 (08:00→23:29)
[2018-08-03 08:17] LABS: BASO# 0.04 X1000 (0.0-0.2); BASO% 0.5 % (0.0-0.8); EOS# 0.14 X1000 (0.0-0.7); EOS% 1.6 % (0.0-10.0); HEMATOCRIT 37.5 % (37.0-47.0); HEMOGLOBIN 11.1 g/dL (12.0-16.0); IMM GRAN# 0.02 X1000 (0.0-0.04); IMM GRAN% 0.2 % (0.0-0.5); LYMPH# 1.38 X1000 (1.2-3.4); LYMPH% 15.6 % (20.5-51.1); MCH 28.2 PG (27-31); MCHC 29.6 g/dL (33-37); MCV 95.2 FL (81-99); MONO# 0.61 X1000 (0.11-0.59); MONO% 6.9 % (1.7-9.3); MPV 10.5 FL (7.4-10.4); NEUT# 6.68 X1000 (1.4-6.5); NEUT% 75.2 % (42.2-75.2); PLT 186 X1000 (130-400); RBC 3.94 XMIL (4.2-5.4); RDW 14.9 % (11.5-14.5); WBC 8.87 X1000 (4.8-10.8)
[2018-08-03 08:34] LABS: ALB/GLOB RATIO 0.8; ALBUMIN 3.3 g/dL (3.5-5.0); CALCIUM 9.5 mg/dL (8.8-10.2); PHOSPHORUS 3.7 mg/dL (2.7-4.5); TOTAL BILIRUBIN 0.3 mg/dL (0.20-1.00); TOTAL PROTEIN 7.7 g/dL (6.3-8.3)
[2018-08-03] MEDS: LASIX IV SCH ×2 (09:57→21:45)
[2018-08-03] MEDS: ALDACTONE PO SCH (09:57)
[2018-08-03] MEDS: ASPIRIN EC PO SCH (09:57)
[2018-08-03] MEDS: LANOXIN PO SCH (09:57)
[2018-08-03] MEDS: MIRALAX PO SCH (09:57)
[2018-08-03] MEDS: ZITHROMAX PO SCH (09:57)
--- NOTE | 2018-08-03 12:48 | PROGRESS NOTE ---
DATE: 08/03/2018 SUBJECTIVE: This morning, Ms. Cruz refers to be doing fairly okay. She said her breathing seems to be getting better. She was on a Venturi mask. OBJECTIVE: Vital signs: Blood pressure is 152/66, pulse of 71, respirations 16, temperature is 97.8 degrees. The patient was saturating 99% on Venturi mask. General: Ms. Cruz is an 83- year-old elderly female. She was in bed, no distress. HEENT: Mucosa is pink and moist. Anicteric. Acyanotic. Neck: Supple. Respiratory: Air entry was bilaterally reduced. There are still some posterior lung skinner. Cardiovascular: Regular rate and rhythm. There is a 2/6 TR murmur. Abdomen: Soft, nontender. Bowel sounds are present. There is an old infraumbilical surgical scar. Extremities: No pedal edema. Neurologic: The patient is awake, alert, and oriented to person and to place. She follows basic commands. The neck still has positive JVD. INPUT AND OUTPUT: Urine output was 2000. She is currently negative balance of 3550. IMAGING: There are no imaging studies today. An echocardiogram which was done on the shows an a RV systolic pressure of 96, suggesting pulmonary hypertension. Ejection fraction was 65%. ASSESSMENT: 1. Acute on chronic hypercarbic respiratory failure. The patient cycles between BiPAP and other oxygen devices. The pCO2 this morning is down to 78, which is gradually improving. 2. Acute hypoxemic respiratory failure. The patient is on Venturi mask. 3. Anasarca evidenced by bilateral pulmonary edema, pleural effusions, and pericardial effusion, presumably cardiac in origin. The patient is on diuretic therapy. She is currently negative balance. Cardiology is on board. 4. Cirrhosis of the liver. Etiology is unclear. Viral hepatitis screen is negative. We think this is cardiac cirrhosis ( [place] liver). 5. Uncontrolled hypertension on presentation, improving. 6. Severe pulmonary hypertension with RV systolic pressure of 96 mmHg on the current echocardiogram. Pulmonary Medicine will be consulted. 7. Constipation. We will continue with bowel regimen. 8. Iron deficiency. We will continue with iron therapy. 9. Generalized weakness and deconditioning. Physical therapy has been consulted. PLAN: So in general, I think Ms. Cruz is slowly getting better. Obviously, she carries a poor prognosis because of her comorbidities and her age. Her CO2 is progressively getting better. She, however, still needs Venturi max to maintain adequate O2 saturation. We will continue with the diuretic therapy. She is also on antibiotics. Cardiology is on board as well as Gastroenterology. We will get Pulmonary Medicine also to evaluate her today. We are pending physical therapy evaluation and will encourage Ms. Cruz to be transitioned to a chair at least twice per day. Pending to update the family members today about her current medical state. cc: Naren Yang MD MTDD
[2018-08-03] MEDS: MORPHINE IV PRN (15:50)
--- NOTE | 2018-08-03 17:46 | PROVIDER PROGRESS NOTE ---
Progress Note SUBJECTIVE: No acute overnight events. No ascites, N/V, CP, confusion, rectal bleeding, melena. OBJECTIVE: Last Vital Signs Temp 98.6 F 08/03/18 15:55 Pulse 82 08/03/18 15:55 Resp 22 08/03/18 15:55 BP 140/45 08/03/18 15:55 Pulse Ox 99 08/03/18 15:55 Height 5 ft 5 in Weight 175 lb GEN: elderly, NAD HEENT: anicteric, MMM NECK: supple, no jvd PULM: decreased BS at bases CARDS: RRR, no murmurs ABD: soft, mild TTP lower abdomen, no rebound or guarding EXT: no cce NEURO: no asterixis 08/03/18 08/03/18 08/03/18 03:44 04:05 07:25 WBC Cancelled Hgb Cancelled Plt Count Cancelled pH 7.40 pCO2 78 H* pO2 97 Sodium 140 Potassium 4.0 Chloride 92 L Carbon Dioxide 40 H BUN 23 H Creatinine 1.0 H Glucose 98 Total Bilirubin 0.30 AST 18 ALT 8 L Alkaline Phosphatase 87 Total Protein 7.[address] abdomen/pelvis 08/01 IMPRESSION: Cardiomegaly, pulmonary edema, bibasilar atelectasis and right pleural effusion. Mild cirrhosis with periportal edema. This may be related to hepatitis or possibly due to passive congestion due to heart failure. No evidence of colitis. Presacral edema of uncertain etiology. A/P: Ms. Michaelle Cruz is a 83 year old woman admitted with afib, HFpEF, DM2, GERD who was admitted for acute hypercarbic respiratory failure found to have cirrhosis on imaging. No decompensation. LFTs unremarkable. Normal renal function. Likely NALFD. #Cirrhosis: acute hepatitis panel negative; fatty liver on US; compensated; no acute liver needs; avoid sedating meds, minimize narcotics; low Na diet #HFpEF: on bipap; cardiology followingng #GERD: on PPI #DM2: on SSI #Abdominal pain: no acute findings on CT; start bentyl 10mg QID as needed for pain; bowel regimen for constipation Will sign off. Follow-up with Dr. Hyman upon discharge. Call with questions
[2018-08-03] MEDS ORDERED: BENTYL PO PRN (17:55)
[2018-08-03] MEDS: ADVAIR 250/50 DISKUS INH SCH (20:32)
--- NOTE | 2018-08-03 21:47 | PROGRESS NOTE ---
DATE: 08/03/2018 SUBJECTIVE: Patient reports feeling pretty much the same. She has some shortness of breath. There has been no chest pain. She does relate that she had some difficulty choking when she was eating earlier. OBJECTIVE: Blood pressure 140/45, heart rate 82, oxygen saturation 99% on oxygen per mask.Neck: Jugular venous distention is still prominent consistent with significantly elevated central venous pressure. Chest: Auscultation of the chest reveals bibasilar coarse crackles. Cardiac Exam: Reveals a regular rate and rhythm without appreciable murmur or gallop. Abdomen: Soft. Bowel sounds are audible. Extremities: Without edema. LABORATORY DATA: Includes a white blood cell count 8.87, hematocrit 37.5, hemoglobin 11.1, platelet count 186,000. Arterial blood gas pH 7.4, pCO2 78, PO2 97. Sodium 140, potassium 4.0, chloride 92, carbon dioxide 40, BUN 23, creatinine 1.0, glucose 98. Echocardiography demonstrates severe tricuspid regurgitation with estimated right ventricular systolic pressure of 96 suggesting severe pulmonary hypertension. Moderate left atrial enlargement demonstrated. There is mild mitral regurgitation. Left ventricular ejection fraction normal at 65%. IMPRESSION: 1. Acute on chronic congestive heart failure with preserved left ventricular ejection fraction. This appears to be largely related to severe pulmonary hypertension. 2. Bilateral pulmonary infiltrates probably multifactorial in origin with atelectasis, possible pulmonary edema and also possible pulmonary infectious process. Also consider the possibility of aspiration pneumonitis. 3. Limited mobility. 4. Chronic atrial fibrillation. 5. Hypertension. 6. Gastroesophageal reflux disease. RECOMMENDATIONS: 1. Continue efforts to diurese. 2. Consider speech therapy evaluation and swallowing study. 3. Conservative cardiovascular management overall. cc: Karlo Arellano MD [facility]
[2018-08-04] MEDS: DULCOLAX PR SCH ×2 (00:44→20:47)
[2018-08-04] MEDS: ROCEPHIN 1 GM in NS 50 ML IV SCH ×2 (00:44→17:42)
[2018-08-04] MEDS: LOVENOX SUBQ SCH ×2 (00:44→20:47)
[2018-08-04] MEDS: HUMALOG SUBQ SCH ×5 (00:45→21:14)
--- NOTE | 2018-08-04 01:55 | PULMONOLOGY CONSULTATION ---
DATE: 08/03/2018 REQUESTING PHYSICIAN: Dr. Yang. REASON FOR CONSULTATION: Hypercarbic respiratory failure and pulmonary hypertension. HISTORY OF PRESENT ILLNESS: Ms. Cruz is an 83-year-old white female with a 25 pack-year history for tobacco (nonsmoker for 40 years), history of obesity, with history of moderate pulmonary hypertension dating back to 2013. The patient has also had CO2 retention, which was 51 on 04/30/2014. The patient's family reports she has had shortness of breath with minimal exertion for a long period of time. She presented to the emergency room on 08/01/2018 with generalized weakness and diarrhea. Echocardiogram was performed, which revealed the systolic pressure of 96 with a normal ejection fraction. Abdominal ultrasound and prior scans are notable for fatty liver with possible cirrhosis. PAST MEDICAL HISTORY: 1. Presumptive COPD. 2. Obesity. 3. Possible cirrhosis. 4. Pulmonary hypertension, as per above. 5. Diabetes mellitus. 6. Atrial fibrillation. 7. Diastolic heart failure. 8. Gastroesophageal reflux. 9. Dyslipidemia. 10. Anxiety disorder. 11. Depression. 12. History of subdural hematoma. SOCIAL HISTORY: Prior tobacco use, as per above. No alcohol use listed. FAMILY HISTORY: Noncontributory to current presentation. REVIEW OF SYSTEMS: Notable for shortness of breath, epigastric tenderness, generalized weakness. PHYSICAL EXAMINATION: General: Reveals a well-developed, well-nourished female, in no distress. Vital signs: Blood pressure 140/45, heart rate 82, respiratory rate 22, oxygen saturation 99% on face mask. HEENT: Pupils are equal and reactive. Oropharynx is clear. Neck: Supple. Chest: Reveals diminished breath sounds bilaterally with prolonged expiratory phase. Cardiac: S1, S2. Irregular rhythm. Abdomen: Obese. Extremities: Reveal trace edema. LABORATORIES: Chest x-ray reveals significant cardiomegaly with pulmonary edema and small right effusion. Arterial blood gas on admission revealed pH of 7.31, pCO2 of 88, PO2 of 69. Arterial blood gas this morning on BiPAP, pH 7.40, pCO2 of 78, pO2 of 97. IMPRESSION: An 83-year-old with clinical exam consistent with severe chronic obstructive pulmonary disease, progressive CO2 retention over the last several years, progressive pulmonary hypertension, cardiomegaly, pleural effusion, pulmonary edema, acute on chronic hypercapnic respiratory failure, hypoxemic respiratory failure. The patient's family reports she has improved with the BiPAP, although she does have difficulty tolerating the device. I believe this would be an ongoing issue for Ms. Cruz. I will attempt to have her evaluated for a Trilogy. PLAN: 1. Continue bronchodilators. 2. Nocturnal BiPAP, although trilogy would be beneficial due to intolerance. 3. Add inhaled corticosteroid steroid/long-acting beta agonist to her regimen. 4. Anticipate the need for oxygen at the time of discharge. cc: Nakul Coleman MD
[2018-08-04 04:14] LABS: ALLEN TEST YES; BE 16.7 mmoll (-3.0-3.0); BLOOD TYPE ARTERIAL; HCO3-(ACT) 37.9 mmoll (20.0-26.0); O2(CT) 15.2 mL/dL (15.0-23.0); O2HB 95.7 % (95.0-99.0); PO2(98.6) 82 mmHg (60-100); SAMPLE BLOOD; SAO2 98.7 % (95.0-100.0); THB 11.2 g/dL (11.5-17.4); pH(98.6) 7.47 (7.35-7.45)
[2018-08-04 04:17] LABS: PCO2(98.6) 59 mmHg (35-45)
[2018-08-04 05:11] LABS: MODALITY BI PAP
[2018-08-04] MEDS: PRILOSEC PO SCH (06:05)
[2018-08-04 07:41] LABS: BASO# 0.02 X1000 (0.0-0.2); BASO% 0.2 % (0.0-0.8); EOS# 0.12 X1000 (0.0-0.7); EOS% 1.2 % (0.0-10.0); HEMATOCRIT 37.4 % (37.0-47.0); HEMOGLOBIN 11.5 g/dL (12.0-16.0); IMM GRAN# 0.02 X1000 (0.0-0.04); IMM GRAN% 0.2 % (0.0-0.5); LYMPH# 1.03 X1000 (1.2-3.4); LYMPH% 10.2 % (20.5-51.1); MCH 28.5 PG (27-31); MCHC 30.7 g/dL (33-37); MCV 92.6 FL (81-99); MONO# 0.58 X1000 (0.11-0.59); MONO% 5.7 % (1.7-9.3); MPV 10.4 FL (7.4-10.4); NEUT# 8.34 X1000 (1.4-6.5); NEUT% 82.5 % (42.2-75.2); PLT 182 X1000 (130-400); RBC 4.04 XMIL (4.2-5.4); WBC 10.11 X1000 (4.8-10.8)
[2018-08-04 07:58] LABS: ALB/GLOB RATIO 0.8; ALBUMIN 3.3 g/dL (3.5-5.0); CALCIUM 9.5 mg/dL (8.8-10.2); POTASSIUM 3.5 mmol/L (3.5-5.1); TOTAL BILIRUBIN 0.37 mg/dL (0.20-1.00); TOTAL PROTEIN 7.5 g/dL (6.3-8.3)
[2018-08-04] MEDS: DUONEB (A & A) INH SCH ×5 (08:03→22:56)
[2018-08-04] MEDS: ADVAIR 250/50 DISKUS INH SCH ×2 (08:03→19:22)
[2018-08-04] MEDS: ASPIRIN EC PO SCH (09:11)
[2018-08-04] MEDS: ALDACTONE PO SCH (09:11)
[2018-08-04] MEDS: LANOXIN PO SCH (09:11)
[2018-08-04] MEDS: ZITHROMAX PO SCH (09:11)
[2018-08-04] MEDS: LASIX IV SCH (09:12)
[2018-08-04] MEDS: MIRALAX PO SCH (09:12)
[2018-08-04] MEDS: NORVASC PO SCH (15:50)
--- NOTE | 2018-08-04 19:28 | PROGRESS NOTE ---
DATE: 08/04/2018 SUBJECTIVE: This morning Ms. Cruz referred to be doing fairly okay. She denies any new complaints. OBJECTIVE: Vital signs: Blood pressure is 139/61, pulse 76, respirations 18, temperature 97.9 degrees. General: Ms. Cruz is an 83-year-old elderly female. She was in bed. She is still on a face mask. Mucosa is pink and moist. Anicteric. Acyanotic. Neck: Supple. There is still positive JVD. Chest: Air entry is bilaterally reduced. A few crackles in the posterior lung skinner. Cardiovascular: Regular rate and rhythm. There is a 2/6 TR murmur. Abdomen: Soft. Bowel sounds present. There is an old infraumbilical surgical scar. Extremities: No pedal edema. DESIGN RELEASE ENGINEER: The patient is sleeping but easily arousable and follows basic commands. Patient I's and O's, urine output was 900. The patient is currently total negative balance of 5525. Her current weight is 175 since the . No recent one. LABORATORY DATA: Has been reviewed. CBC is unremarkable except for a low hemoglobin. ABG shows pH of 7.45, pCO2 of 59, which is gradually getting better. Chemistry is also reviewed. Bicarb is 36. ASSESSMENT: 1. Acute on chronic hypercarbic respiratory failure. Patient is on BiPAP. PCO2 is trending down. 2. Acute hypoxemic respiratory failure. Patient is on Venturi mask for oxygen demands. She seems to be saturating well. We are going to be titrating this down. We will follow up with respiratory therapy. 3. Anasarca, evidenced by pulmonary edema, pleural effusions, and pericardial effusion, most likely due to congestive heart failure with preserved ejection fraction. Patient is on gentle diuretic therapy. Cardiology is on board. 4. Cirrhosis of the liver, presumably cardiac cirrhosis. 5. Uncontrolled hypertension on presentation, improved. 6. Severe pulmonary hypertension with right ventricle systolic pressure of 96 mm Hg on recent echocardiogram. 7. Constipation, improved. 8. Iron deficiency. We will continue replacement. 9. Generalized weakness and deconditioning. Physical therapy is on board. The patient was evaluated yesterday. She was able to participate with PT. PLAN: So in general I think Ms. Cruz is clinically stable with slow progression, pCO2 is getting better. She seems to be breathing a whole lot better. We will continue with the current plan and encourage her to participate with physical therapy more. The patient is being seen by cardiology and pulmonary medicine and GI will follow up with further recommendations from them. cc: Naren Yang MD
[2018-08-05 04:02] LABS: ALLEN TEST YES; BLOOD TYPE ARTERIAL; HCO3-(ACT) 34.3 mmoll (20.0-26.0); METHB 1.1 % (0.0-1.5); O2(CT) 15.9 mL/dL (15.0-23.0); O2HB 96.7 % (95.0-99.0); PO2(98.6) 111 mmHg (60-100); SAMPLE BLOOD; SAO2 99.6 % (95.0-100.0); THB 11.6 g/dL (11.5-17.4); pH(98.6) 7.46 (7.35-7.45)
[2018-08-05 04:04] LABS: MODALITY VENTIMASK; PCO2(98.6) 53 mmHg (35-45)
[2018-08-05] MEDS: HUMALOG SUBQ SCH ×4 (06:10→21:02)
--- NOTE | 2018-08-05 06:55 | Diag Imaging Result Doc PS360 ---
EXAM: CHEST-PORTABLE 08/05/2018 HISTORY: dyspnea TECHNIQUE: AP portable at 0451 COMMENT: There is cardiomegaly. There is coarse and ill-defined opacity over both lungs similar in appearance to the previous study of 08/02/2018. There may be a small amount of pleural fluid on the right. The lungs are slightly better expanded than on the previous study but otherwise are has been no significant change. IMPRESSION: Cardiomegaly and pulmonary edema. Subsegmental atelectasis and/or pneumonia. Electronically signed by Preston Henson 08/05/2018 6:52 AM
[2018-08-05] MEDS: PRILOSEC PO SCH (06:57)
[2018-08-05] MEDS: MORPHINE IV PRN (06:57)
[2018-08-05 07:26] LABS: BASO# 0.03 X1000 (0.0-0.2); BASO% 0.3 % (0.0-0.8); EOS# 0.16 X1000 (0.0-0.7); EOS% 1.5 % (0.0-10.0); HEMATOCRIT 37.4 % (37.0-47.0); HEMOGLOBIN 11.4 g/dL (12.0-16.0); IMM GRAN# 0.02 X1000 (0.0-0.04); IMM GRAN% 0.2 % (0.0-0.5); LYMPH# 1.18 X1000 (1.2-3.4); LYMPH% 11.4 % (20.5-51.1); MCH 28.2 PG (27-31); MCHC 30.5 g/dL (33-37); MCV 92.6 FL (81-99); MONO# 0.58 X1000 (0.11-0.59); MONO% 5.6 % (1.7-9.3); MPV 10.2 FL (7.4-10.4); PLT 177 X1000 (130-400); RBC 4.04 XMIL (4.2-5.4); RDW 15.1 % (11.5-14.5); WBC 10.37 X1000 (4.8-10.8)
[2018-08-05 07:39] LABS: CALCIUM 9.4 mg/dL (8.8-10.2); CREATININE 0.9 mg/dL (0.5-0.9); POTASSIUM 3.5 mmol/L (3.5-5.1)
[2018-08-05] MEDS: DUONEB (A & A) INH SCH ×5 (07:48→22:22)
[2018-08-05] MEDS: ADVAIR 250/50 DISKUS INH SCH ×2 (07:50→19:20)
--- NOTE | 2018-08-05 08:24 | CARDIOLOGY PROGRESS NOTE ---
DATE: 08/04/2018 SUBJECTIVE: She reports continued stable levels of shortness of breath. They have not really improved or worsened since admission. OBJECTIVE: Vital Signs: She is afebrile, heart rate of 80, her blood pressure is 157/83 with most systolics in the last several checks in the 130 to 150 range. Her I's and O's during this hospitalization have been a net negative of 5.5 L, but there is very little intake recorded. General: No acute distress. Cardiovascular: She has distant heart sounds. Regular. Trace bilateral lower extremity edema. Chest: Distant breath sounds. No increased work of breathing. Abdomen: Soft, nontender. PERTINENT LABORATORY DATA: Her ABG is 7.47, with a pCO2 of 59, which is significantly improved, her PO2 was 82. Her sodium is 144, potassium 3.5, BUN 24, creatinine is 1. ProBNP earlier in this hospitalization was 45/3. ASSESSMENT: Ms. Cruz is an 83-year-old female with a history of diastolic failure, as well as pulmonary hypertension. PLAN: She is significantly hypertensive. She is on diuretics presently in the form of furosemide 40 IV b.i.d. I will recheck laboratories in the morning, and add in amlodipine at 5 mg daily as she is significantly hypertensive. cc: Marin Abel MD
--- NOTE | 2018-08-05 08:38 | PULMONOLOGY PROGRESS NOTE ---
DATE: 08/04/2018 SUBJECTIVE: The patient is awake, alert. She reports she slept well. She reports less shortness of breath today. OBJECTIVE: Vital Signs: The patient has been afebrile for the last 24 hours. Blood pressure 157/83, heart rate 80, respiratory rate 16, oxygen saturation 96% on Venturi mask. HEENT: Pupils are equal and reactive. Oropharynx is clear. Neck: Supple. Chest: Reveals prolonged expiratory phase with minimal wheezing. No rhonchi present. Cardiac exam: Distant heart sounds. Normal S1, normal S2. Abdomen: Soft. Extremities: Reveal trace edema. LABORATORIES: Arterial blood gas reveals improvement in the pCO2. PH is 7.47, pCO2 59, PO2 of 82. Sodium 144, potassium 3.5, chloride 98, bicarbonate 36, BUN 24, creatinine 1. IMPRESSION: 83-year-old with: 1. Severe chronic obstructive pulmonary disease. 2. Acute on chronic hypercapnic respiratory failure. 3. Progressive pulmonary hypertension. 4. Cardiomegaly. 5. Pleural effusions. 6. Pulmonary edema. 7. Acute hypoxemic respiratory failure. Clinically she continues to improve while wearing BiPAP, but is having difficulty tolerating this device. RECOMMENDATIONS: 1. Continue bronchodilators. 2. Attempt to continue BiPAP, but Trilogy or a noninvasive ventilator which could target ventilation parameters would be best. 3. Continue current bronchodilators. 4. Anticipate oxygen at the time of discharge. cc: Nakul Coleman MD [facility]
[2018-08-05] MEDS: ZITHROMAX PO SCH (08:52)
[2018-08-05] MEDS: ALDACTONE PO SCH (08:54)
[2018-08-05] MEDS: ASPIRIN EC PO SCH (08:54)
[2018-08-05] MEDS: NORVASC PO SCH (08:55)
[2018-08-05] MEDS: LANOXIN PO SCH (08:55)
[2018-08-05] MEDS: MIRALAX PO SCH (08:56)
--- NOTE | 2018-08-05 10:17 | Diag Imaging Result Doc PS360 ---
EXAM: KUB ABDOMEN 08/05/2018 HISTORY: SBO TECHNIQUE: KUB COMMENT: There is gas and stool throughout the colon without evidence of dilatation. The small bowel and stomach are not distended. Compared to 01/18/2018 there is more stool. IMPRESSION: Mild constipation. Otherwise nonspecific abdomen. Electronically signed by Preston Henson 08/05/2018 10:15 AM
--- NOTE | 2018-08-05 13:11 | PROGRESS NOTE ---
DATE: 08/05/2018 SUBJECTIVE: This morning, Ms. Cruz refers to be doing a whole lot better. She said her shortness of breath is getting under control. The daughter was at the bedside at the time of the encounter. She also did complain about itching in her left eye. OBJECTIVE: Current Vital Signs: Blood pressure is 154/73, pulse of 75, respirations are 12, temperature is 97.6 degrees. General Examination: Ms. Cruz is an 83-year-old, female. She is in bed. She is not in distress. HEENT: Mucosa is pink and moist. Anicteric. Acyanotic. Neck: Supple. No JVD this morning. Chest: Air entry is bilaterally reduced. There are still a few crackles in the posterior lung skinner. Cardiovascular: Regular rate and rhythm. There is a positive 2/6 TR murmur. GI: Abdomen is soft, nontender. Bowel sounds are present but hypoactive. There is an old infraumbilical surgical scar. Extremities: No pedal edema. LANGUAGE INSTRUCTOR: The patient is awake, alert, oriented. There is no focal neurological deficit. Laboratory Data: Has been reviewed. CBC is unremarkable. Chemistry shows creatinine is back to 0.9. ABG, pH is 7.46, pCO2 of 53. ProBNP is also gradually improving. It is down to 2218. ASSESSMENT: 1. Acute on chronic hypercarbic respiratory failure. PCO2 this morning is 53. This is an improvement from 88 on admission. 2. Acute hypoxemic respiratory failure. The patient is still on Venturi mask. She is saturating over 98%. Respiratory therapy is titrating this accordingly. 3. Anasarca evidenced by pulmonary edema, pleural effusions, and pericardial effusion, all secondary to congestive heart failure with preserved ejection fraction. The patient was on intravenous diuretic therapy. She has diuresed adequately well. She is currently a total negative balance of 7585. She is not showing any more congestive symptoms and signs so we have switched to oral diuretics. 4. 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 5. Severe uncontrolled hypertension on presentation, improved. 6. Severe pulmonary hypertension with right ventricle systolic pressure of 96 mmHg on recent echocardiogram. 7. Constipation. We will continue with bowel regimen. 8. Iron deficiency. Patient is on replacement. 9. Generalized weakness and deconditioning. Physical therapy is on board. PLAN: In general, I think Ms. Cruz seems to be doing progressively well. She is getting physical therapy. We will continue with her current management including antimicrobials, diuretics, and bronchodilation therapy. We have consulted social work for possible rehab placement during the week. cc: Naren Yang MD
[2018-08-05] MEDS: LASIX PO SCH (13:45)
[2018-08-05] MEDS: TEARISOL OPH SOLUTION LEFT EYE SCH ×3 (13:45→21:02)
[2018-08-05] MEDS: LACTULOSE PO SCH ×3 (13:45→21:07)
[2018-08-05] MEDS: ROCEPHIN 1 GM in NS 50 ML IV SCH (17:14)
--- NOTE | 2018-08-05 17:50 | PULMONOLOGY PROGRESS NOTE ---
DATE: 08/05/2018 SUBJECTIVE: The patient is awake, alert, and conversant. She has had good diuresis. She reports she feels better than yesterday. OBJECTIVE: Vital signs: The patient has been afebrile for the last 24 hours. Blood pressure 154/73, heart rate 75, respiratory rate 12, oxygen saturation 99% on supplemental face mask. HEENT: Pupils are equal and reactive. Oropharynx appears clear. Neck: Supple. Chest: Reveals prolonged expiratory phase with crackles in both lung bases. Cardiac Exam: S1, S2. Abdomen: Soft. Extremities: Reveal decrease edema. LABORATORIES: Chest x-ray reveals cardiomegaly and pulmonary edema without significant change. Arterial blood gas reveals a pH 7.46, pCO2 of 53, PO2 of 111. White blood count 10.37, hemoglobin 11.4, platelet count 177,000. IMPRESSIONS: An 83-year-old with: 1. Acute on chronic hypercapnic respiratory failure. 2. Acute hypoxemic respiratory failure. 3. Severe chronic obstructive pulmonary disease. 4. Progressive pulmonary hypertension. 5. Pleural effusions. 6. Cardiomegaly. 7. Pulmonary edema. RECOMMENDATIONS: 1. Continue bronchodilators. 2. Continue diuresis as tolerated. 3. Continue BiPAP. Trilogy is recommended so that she will better tolerate the variable target tidal volumes this device could deliver and improve compliance/comfort. 4. Anticipate long-term oxygen requirements. cc: Nakul Coleman MD
[2018-08-05] MEDS: FERGON PO SCH (21:01)
[2018-08-05] MEDS: LOVENOX SUBQ SCH (21:01)
[2018-08-05] MEDS: DULCOLAX PR SCH (21:02)
[2018-08-05] MEDS ORDERED: ATIVAN PO ONE (23:09)
[2018-08-06] MEDS: PRILOSEC PO SCH (06:26)
[2018-08-06] MEDS: HUMALOG SUBQ SCH ×3 (06:41→15:33)
[2018-08-06] MEDS: ADVAIR 250/50 DISKUS INH SCH (07:34)
[2018-08-06] MEDS: DUONEB (A & A) INH SCH ×2 (07:35→11:22)
[2018-08-06] MEDS: NORVASC PO SCH (08:36)
[2018-08-06] MEDS: ZITHROMAX PO SCH (08:36)
[2018-08-06] MEDS: FERGON PO SCH (08:37)
[2018-08-06] MEDS: ALDACTONE PO SCH (08:37)
[2018-08-06] MEDS: LASIX PO SCH (08:37)
[2018-08-06] MEDS: ASPIRIN EC PO SCH (08:37)
[2018-08-06] MEDS: LANOXIN PO SCH (08:37)
[2018-08-06] MEDS: LACTULOSE PO SCH (08:37)
[2018-08-06] MEDS: MIRALAX PO SCH (08:40)
[2018-08-06] MEDS: TEARISOL OPH SOLUTION LEFT EYE SCH (14:00)
--- NOTE | 2018-08-06 14:49 | DISCHARGE SUMMARY ---
ADMISSION DATE: 08/01/2018 DISCHARGE DATE: 08/06/2018 DISPOSITION: To [facility]. Follow up will be with the patient's PCP, Dr. Sands. CONSULTATIONS DURING THIS ADMISSION: 1. Gastroenterology was consulted. The patient was seen by Dr. Hills. 2. Cardiology was consulted. The patient was seen by Dr. Arellano. 3. Respiratory was consulted. The patient was seen by Dr. Coleman. INVESTIGATIVE PROCEDURES DONE DURING THIS ADMISSION: None. IMAGING STUDIES OF SIGNIFICANCE: 1. A CT scan of the abdomen and pelvis showed cardiomegaly, pulmonary edema, mild cirrhosis with periportal edema, presacral edema of uncertain etiology. 2. An echocardiogram showed an ejection fraction of 65% with no significant valvulopathy, but RV systolic pressure was 96, suggesting severe pulmonary hypertension. 3. Multiple chest x-rays were done. Continues to show some mild marked cardiomegaly and pulmonary edema. ADMISSION DIAGNOSES: 1. Hypoxemic respiratory failure. 2. Anasarca. 3. Suspected congestive heart failure. 4. Cirrhosis of the liver. DIAGNOSIS AT THE TIME OF DISCHARGE: 1. Acute on chronic hypercarbic respiratory failure. This was improved with the use of BiPAP. 2. Acute hypoxemic respiratory failure. The patient is currently on oxygen therapy. 3. Anasarca evidenced by pulmonary edema, pleural effusion, and pericardial effusion secondary to congestive heart failure with preserved ejection fraction. 4. 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 Unsure if there is an autoimmune component to this. The patient will follow up with Gastroenterology. 5. Severe uncontrolled hypertension, improved. 6. Severe pulmonary hypertension with right ventricle systolic pressure of 96 mmHg on echocardiogram. 7. Constipation, improved. 8. Iron deficiency, replace. 9. Generalized weakness and deconditioning. The patient will go to rehab to improve on her physical strength. DISCHARGE MEDICATIONS: 1. Lovastatin 20 mg p.o. at bedtime. 2. Fluoxetine. 3. Digoxin 125 p.o. daily. 4. Magnesium oxide. 5. Isosorbide mononitrate 30 mg p.o. daily. 6. Gabapentin 300 p.o. b.i.d. 7. Glimepiride 2 mg b.i.d. 8. Lorazepam 0.5 p.o. at bedtime. 9. Furosemide 40 mg daily. 10. Azithromycin 500 p.o. daily. 11. Omeprazole 40 mg p.o. daily. 12. Ferrous gluconate 240 p.o. b.i.d. 13. Spironolactone 25 mg p.o. daily. 14. Advair 1 puff b.i.d. PRESENTING COMPLAINT: Abdominal pain, shortness of breath. HISTORY OF PRESENTING COMPLAINT: Ms. Cruz is an 83-year-old female who has a history of diabetes mellitus, chronic atrial fibrillation, chronic diastolic heart failure, and some depression. She came to the emergency department because of generalized weakness, some ongoing diarrhea and shortness of breath. It appears that a home health agency went to her house and found that her oxygen level was low, and that the patient was extremely hypertensive, so she was advised to come to the emergency department. Upon presentation, she was found to have a blood pressure of 170/95, was saturating about 92% which went down to about 74% at some point. The patient was investigated including a CT scan of the abdomen and pelvis which revealed cardiomegaly, pulmonary edema, pleural effusions, and cirrhosis with periportal edema. The patient was admitted for further medical care. HOSPITAL COURSE: Ms. Cruz was admitted to the medical floor, was kept on fluid restriction. IV diuretics were started and she was also started on IV antibiotics. During the hospital course, the patient was seen by Pulmonary Medicine as well as Gastroenterology and Cardiology. We kept titrating her medications. She on daily basis diuresed adequately. She is currently negative balance of 8585. Her shortness of breath has significantly improved. During the pulmonary evaluation, the patient was advised to use Trelegy, however, the patient was not tolerating that. She continues to be needing oxygen. She will be discharged on nasal cannula supplementation. Because of the cirrhosis made mention on the CT scan, virus studies were done which were negative. BANDAR has been done. It is a little bit abnormal, so the patient is advised to follow up with Gastroenterology to rule out any potential autoimmune cirrhosis. This morning, Ms. Cruz refers to be feeling a lot better. She has had 2 sessions of physical therapy during the hospital course. She feels stronger. She is going to be discharged in stable condition, and she will follow up with the subspecialties mentioned above. All the discharge instructions have been discussed with her and she voiced understanding. This morning, Ms. Cruz's vitals were blood pressure 151/57, pulse is 87, respiration is 18, temperature 98.5 degrees. The physical exam is unremarkable except for mild crackles in the posterior lung skinner. There is also positive 2/6 TR murmur, but no obvious edema or congestive findings. Ms. Cruz is being discharged to [facility]. Time spent for discharge is 36 minutes. cc: MD Lyle Hernandez MD William D. Denney, MD Michael Kelso, MD Joseph Blake Boyett MTDD
[2018-08-06 16:55] VITALS: BP 160/70
--- NOTE | 2018-08-07 19:07 | Extremity Venous Study ---
PROCEDURE NAME: Venous U/S Bilateral Legs - 08/02/2018 REFERRING PHYSICIAN: Naren Yang MD. READING PHYSICIAN: Agusto Medeiros MD. DIRECT MARKETING ANALYST: Rogelio. INDICATION: Left leg pain, shortness of breath, atrial fibrillation. FINDINGS: The deep and superficial veins of the lower extremities were imaged throughout their course. They are compressible, patent, and without thrombus. INTERPRETATION: No DVT or SVT of either lower extremity. cc: MD Zita Sandoval PA
== END 2018-08-06 18:00 | DRG 291 ==
LOC: SUPCPDRO → ED 12:39 → 3N 21:22
PROVIDERS: ATTEND Internal Medicine
CPT/HCPCS: 51702; 51798; 71010; 71020; 71045; 71046; 74000; 74018; 74177; 76700; 80048; 80053; 80074; 81001; 82306; 82607; 82728; 82746; 82805; 82948; 83516; 83540; 83550; 83690; 83735; 83880; 84100; 85025; 85379; 85610; 86038; 86039; 86235; 87040; 93005; 93010; 93306; 93970; 94640; 94660; 94760; 94761; 96365; 96375; 97110; 97162; 99285; 99291; A9270; J0696; J1650; J1756; J1815; J1940; J2270; J2405; J7040; Q9967; XXXXX

== ENCOUNTER 2019-03-27 13:57 | Inpatient (IN) ==
--- NOTE | 2019-03-27 14:34 | Diag Imaging Result Doc PS360 ---
EXAM: CHEST-1 VIEW 03/27/2019 HISTORY: sob TECHNIQUE: AP portable upright at 1426 COMMENT: There is cardiomegaly. There is increased pulmonary vascularity. There is alveolar and interstitial edema. There is worsened opacification of the left lower lobe compared to 08/05/2018. IMPRESSION: Cardiomegaly and pulmonary edema plus minus pneumonia. Electronically signed by Preston Henson 03/27/2019 2:32 PM
[2019-03-27] MEDS ORDERED: LEVAQUIN 500 MG/D5W 500 MG/100 ML IVPB IV ONE (14:47)
--- NOTE | 2019-03-27 14:53 | EKG Report ---
Test Performed on : 03/27/2019 2:32:23 PM Test Reason : sob Blood Pressure : / mmHG Vent. Rate : 113 BPM Atrial Rate : 113 BPM P-R Int : 000 ms QRS Dur : 072 ms QT Int : 294 ms P-R-T Axes : 000 088 -42 degrees QTc Int : 403 ms Atrial fibrillation. with rapid ventricular response. Abnormal QRS-T angle, consider primary T wave abnormality Abnormal ECG When compared with ECG of 02-AUG-2018 16:15, Nonspecific T wave abnormality has replaced inverted T waves in Inferior leads Nonspecific T wave abnormality has replaced inverted T waves in Lateral leads Unconfirmed Result
--- NOTE | 2019-03-27 15:24 | Diag Imaging Result Doc PS360 ---
EXAM: CT HEAD W/O CONTRAST 03/27/2019 HISTORY: ams TECHNIQUE: This exam was performed using automated exposure control, adjustment of mA or kV according to patient size, and/or use of iterative reconstruction technique. COMMENT: There are calcifications in the vertebral and internal carotid arteries. There is a lacune in the inferior portion of the obtainment on the left and also possibly on the right. There is no evidence of mass effect or bleed. There is mild periventricular white matter lucency bilaterally particularly in the frontal lobes. The paranasal sinuses are clear. The calvarium is intact. Compared to the previous examination of 01/16/2018 the appearance of the brain has not changed significantly. IMPRESSION: Chronic ischemic changes. No evidence of acute intracranial disease. Electronically signed by Preston Henson 03/27/2019 3:21 PM
[2019-03-27 15:44] LABS: ALLEN TEST YES; BE 9.4 mmoll (-3.0-3.0); BLOOD TYPE ARTERIAL; HCO3-(ACT) 32.1 mmoll (20.0-26.0); METHB 1.1 % (0.0-1.5); O2HB 91.6 % (95.0-99.0); PO2(98.6) 59 mmHg (60-100); SAMPLE BLOOD; SAO2 94.8 % (95.0-100.0); THB 12.4 g/dL (11.5-17.4); pH(98.6) 7.33 (7.35-7.45)
[2019-03-27 15:45] LABS: MODALITY CANNULA; PCO2(98.6) 72 mmHg (35-45)
[2019-03-27 15:46] LABS: URINE SOURCE CATH
[2019-03-27 15:49] LABS: BASO# 0.05 X1000 (0.0-0.2); BASO% 0.4 % (0.0-0.8); EOS# 0.13 X1000 (0.0-0.7); HEMATOCRIT 39.5 % (37.0-47.0); HEMOGLOBIN 11.6 g/dL (12.0-16.0); IMM GRAN# 0.05 X1000 (0.0-0.04); IMM GRAN% 0.4 % (0.0-0.5); LYMPH# 1.67 X1000 (1.2-3.4); LYMPH% 13.4 % (20.5-51.1); MCH 29.1 PG (27-31); MCHC 29.4 g/dL (33-37); MCV 99.2 FL (81-99); MONO# 0.86 X1000 (0.11-0.59); MONO% 6.9 % (1.7-9.3); MPV 10.1 FL (7.4-10.4); NEUT% 77.9 % (42.2-75.2); PLT 322 X1000 (130-400); RBC 3.98 XMIL (4.2-5.4); RDW 13.8 % (11.5-14.5); WBC 12.46 X1000 (4.8-10.8)
[2019-03-27 15:50] LABS: BILIRUBIN URINE NEGATIVE (NEGATIVE); BLOOD URINE MODERATE (NEGATIVE); COLOR YELLOW; GLUCOSE URINE NEGATIVE (NEGATIVE); KETONE URINE TRACE mg/dL (NEGATIVE); LEUKOCYTES URINE LARGE (NEGATIVE); NITRITE URINE NEGATIVE (NEGATIVE); PROTEIN URINE 200 mg/dL (NEGATIVE); SP GRAVITY URINE 1.028; TURBIDITY URINE TURBID (CLEAR); UROBILINOGEN URINE 2 mg/dL (NORMAL)
[2019-03-27 15:51] LABS: UR EPITHELIAL CELLS <10 /HPF (<10); URINE BACTERIA 4+ /HPF; URINE RBC 20-40 /HPF (<10); URINE WBC TNTC /HPF (<10)
[2019-03-27 15:55] LABS: INR 1.09; PROTIME 14.3 Seconds (11.0-16.0); URINE CASTS GRANULAR PRESENT; URINE CRYSTALS NONE SEEN; URINE YEAST NONE SEEN
[2019-03-27 15:56] LABS: PTT 31.3 Seconds (22.3-41.8)
[2019-03-27 16:08] LABS: AGAP 10; ALB/GLOB RATIO 0.8; ALBUMIN 3.3 g/dL (3.5-5.0); ALKALINE PHOSPHATASE 76 U/L (32-104); BUN 13 mg/dL (8-22); CALCIUM 9.5 mg/dL (8.8-10.2); CHLORIDE 97 mmol/L (98-107); COSMO 283; CREATININE 0.7 mg/dL (0.5-0.9); ESTIMATED GFR > 60; GLUCOSE 190 mg/dL (70-104); GOT 11 U/L (10-30); GPT 5 U/L (10-36); POTASSIUM 4.6 mmol/L (3.5-5.1); SODIUM 139 mmol/L (136-145); TCO2 32 mmol/L (25-35); TOTAL PROTEIN 7.4 g/dL (6.3-8.3)
[2019-03-27] MEDS ORDERED: LASIX IV ONE (16:29)
[2019-03-27] MEDS ORDERED: VANCOMYCIN 1 GM/NS 1 GM/250 ML IVPB IV ONE (16:46)
[2019-03-27] MEDS ORDERED: MAXIPIME 1 GM in NS 50 ML IV ONE (16:47)
[2019-03-27] MEDS ORDERED: CARDIZEM 100 MG/NS 100 MG/100 ML IVPB IV SCH (18:03)
[2019-03-27] MEDS ORDERED: OFIRMEV 1000 MG/ISOTONIC SOLN 1,000 MG/100 ML BOTTLE IV PRN (18:03)
--- NOTE | 2019-03-27 18:11 | Diag Imaging Result Doc PS360 ---
EXAM: KUB ABDOMEN INDICATION: abd pain TECHNIQUE: One view COMPARISON: 08/05/2018 FINDINGS: There are nonspecific bowel gas and stool patterns. Stool appears to be somewhat increased in the rectum and distal sigmoid colon, which may indicate constipation. There is no obstructive bowel pattern. There is no evidence of large volume free abdominal gas. There is no evidence of organomegaly. IMPRESSION: Nonspecific abdomen with possible constipation. Electronically signed by Serafin Luna 03/27/2019 6:09 PM
[2019-03-27] MEDS: ZYVOX 600 MG/D5W 600 MG/300 ML IVPB IV SCH (21:09)
[2019-03-27] MEDS: SODIUM CHLORIDE 0.9% INJ SCH (21:10)
[2019-03-27] MEDS: PROTONIX IV SCH (21:10)
[2019-03-27] MEDS: LASIX IV SCH (21:10)
--- NOTE | 2019-03-27 21:11 | HISTORY AND PHYSICAL ---
ADDENDUM: The patient was seen and examined by me [id number]. All the laboratory, vital signs and images were reviewed. The patient presented to the emergency department because of altered mental status. Family members at the bedside. White blood cell count is elevated at 12.4. She is hypercarbic. The urine looked infected with 4+ bacteria and large white blood cell count. X-ray showed cardiomegaly and pulmonary edema plus/minus pneumonia, and I do believe there is a pneumonia in the left lower lobe. On my physical exam this patient is lethargic. She opens her eyes to voice and she was able to say her name, but she is extremely weak and short of breath. EKG showed atrial fibrillation with RVR. She is tachycardic, irregularly regular rate and rhythm. She has crackles bilaterally with rhonchi. Her abdomen is tender as well, and she has 2 to 3+ lower extremity edema. We will admit this patient to the PVC or ICU unit. She will receive diltiazem drip. I will diurese this patient. I will put her on broad-spectrum antibiotics as well. The family has requested to do everything we can for this patient medically, but after discussing her advanced directive with the family for at least 50 minutes, they have decided to put this patient Do Not Resuscitate/Allow Natural , and that has been changed in the computer already. I agree with the rest of the nurse practitioner's assessment and plan. cc: Daron Chung MD
[2019-03-27] MEDS ORDERED: G.I. COCKTAIL PO ONE (21:23)
[2019-03-27] MEDS: ZOSYN 3.375 GM in NS 50 ML IV SCH (23:33)
--- NOTE | 2019-03-28 00:11 | HISTORY AND PHYSICAL ---
PRIMARY CARE PROVIDER: None. CHIEF COMPLAINT: Per family, "sick and altered mental status." HISTORY OF PRESENT ILLNESS: Ms Cruz is an 84-year-old female with a past medical history of acute on chronic hypercarbic respiratory failure, hypoxemic respiratory failure and anasarca with pulmonary edema, congestive heart failure, cardiac cirrhosis, hypertension, severe pulmonary hypertension who is a long-term resident at [facility] who, at one point, was on palliative care, but was taken off around . Family reports on Monday she was in her normal state of health. She was awake, alert, talking; however, she was having some issues with vomiting and abdominal pain. They saw her on Monday, she was feeling better. They did not see her on Monday and then today she had a decrease in her mental status, so they requested that she be sent to the ER to be checked out. They do wish for her to be a DNR level 1 and they signed for a portable DNR. Workup in the ED he has revealed right-sided pneumonia, urinary tract infection and congestive heart failure, and CO2 retention as well as atrial fibrillation with rapid ventricular response. She will be admitted to [facility]. We will initiate her on broad-spectrum antibiotics, IV Lasix b.i.d., Cardizem drip, and BiPAP for her hypercarbia and dropping O2 saturations as well as a palliative care consult. PAST MEDICAL HISTORY: Per HPI. PAST SURGICAL HISTORY: Cholecystectomy, hysterectomy, skin cancer removal. FAMILY HISTORY: Positive for stroke. ALLERGIES: Bactrim DS, morphine causes a rash. REVIEW OF SYSTEMS: Somewhat hard to obtain. The patient does say her name. She does moan, does not really follow any commands. PHYSICAL EXAMINATION: VITAL SIGNS: Temperature is 97.4 degrees, heart rate 109, respirations 12, blood pressure is 140/97, O2 is 95% on room air. O2 saturations dropped, she was placed on nasal cannula. They continue to drop into the 80s. She will be placed on BiPAP. GENERAL: Ms. Cruz is an ill-appearing, 84-year-old female who is lying in the bed, moaning. HEENT: Atraumatic, normocephalic. PERRL. Mucous membranes are dry. NECK: Supple. Trachea midline. CARDIOVASCULAR: Irregularly irregular. PULMONARY: Bilateral crackles. EXTREMITIES: Bilateral lower extremities pitting edema 2 to 3+. NEUROLOGIC: Patient does open her eyes. She moans. She will state her name. She does not really follow any commands. DIAGNOSTIC DATA: Chest x-ray, cardiomegaly, pulmonary edema, plus/minus pneumonia. Head CT chronic ischemic changes. No evidence of acute intracranial disease. EKG atrial fibrillation with rapid ventricular response at 113 beats per minute. Abdominal x-ray, nonspecific abdomen with possible constipation. LABORATORY DATA: White count 12, hemoglobin and hematocrit 11 and 39, platelet count is 322,000. ABGs with pH 7.33, pCO2 of 72, bicarb 32, base excess 9.4, O2 saturation is 94%. Sodium 139, potassium 4.6, BUN 13, creatinine 0.7. Blood glucose is 190, AST 11, ALT 5. Ammonia level is 53. Troponin is 27, which is still negative. ProBNP is 2146, albumin 3.3. Urinalysis shows 4+ bacteria, 20 to 40 RBCs, too numerous to count WBCs, large leukocytes, moderate blood. Plasma lactate is negative. ASSESSMENT AND PLAN: 1. Healthcare-associated pneumonia. We will place her on broad-spectrum antibiotics with Zyvox and Zosyn. The patient is a long-term resident of [facility]. 2. Urinary tract infection. Continue broad-spectrum antibiotics. Await urine culture. 3. Congestive heart failure exacerbation with known pulmonary hypertension. We will continue with IV Lasix b.i.d. 4. Cardiac cirrhosis, known. We will continue lactulose when patient is able to intake. Her ammonia level is currently 51. 5. Atrial fibrillation with rapid ventricular response. We will place her on Cardizem. 6. Acute on chronic hypercarbic hypoxemic respiratory failure. The patient is being initiated on BiPAP. 7. Abdominal pain. The patient does show some mild constipation on KUB. We will continue to monitor. 8. Do Not Resuscitate, per family request. They did not wish for intubation or mechanical ventilation or CPR, but they would like for us to continue treatment as we are doing at this time. Will need continued discussions of possible hospice care with palliative care tomorrow. Dictated by OMI Crow for Daron Chung MD cc: Daron Chung MD [facility]
[2019-03-28] MEDS: ZOSYN 3.375 GM in NS 50 ML IV SCH ×3 (04:58→17:50)
--- NOTE | 2019-03-28 05:25 | Diag Imaging Result Doc PS360 ---
EXAM: CHEST-PORTABLE HISTORY: Pneumonia TECHNIQUE: Single view COMPARISON: 03/27/2019 FINDINGS: The heart remains enlarged. There is pulmonary edema. This is fairly similar to the prior exam. Small moderate-sized left pleural effusion with basilar atelectasis. There may be an underlying infiltrate as well. IMPRESSION: No interval improvement. Electronically signed by Wayne Richmond 03/28/2019 5:23 AM
[2019-03-28 06:20] LABS: BASO# 0.05 X1000 (0.0-0.2); BASO% 0.5 % (0.0-0.8); EOS# 0.27 X1000 (0.0-0.7); EOS% 2.9 % (0.0-10.0); HEMATOCRIT 39.3 % (37.0-47.0); HEMOGLOBIN 11.5 g/dL (12.0-16.0); IMM GRAN# 0.03 X1000 (0.0-0.04); IMM GRAN% 0.3 % (0.0-0.5); LYMPH# 1.21 X1000 (1.2-3.4); LYMPH% 12.8 % (20.5-51.1); MCH 29.3 PG (27-31); MCHC 29.3 g/dL (33-37); MCV 100.3 FL (81-99); MONO# 1.02 X1000 (0.11-0.59); MONO% 10.8 % (1.7-9.3); MPV 10.1 FL (7.4-10.4); NEUT# 6.84 X1000 (1.4-6.5); NEUT% 72.7 % (42.2-75.2); PLT 229 X1000 (130-400); RBC 3.92 XMIL (4.2-5.4); RDW 13.7 % (11.5-14.5); WBC 9.42 X1000 (4.8-10.8)
[2019-03-28 06:42] LABS: ESTIMATED GFR > 60
[2019-03-28 06:45] LABS: AGAP 11; ALB/GLOB RATIO 0.6; ALBUMIN 2.6 g/dL (3.5-5.0); ALKALINE PHOSPHATASE 64 U/L (32-104); BUN 13 mg/dL (8-22); CALCIUM 9.3 mg/dL (8.8-10.2); CHLORIDE 95 mmol/L (98-107); COSMO 285; CREATININE 0.7 mg/dL (0.5-0.9); GLUCOSE 155 mg/dL (70-104); GOT 10 U/L (10-30); GPT < 5 U/L (10-36); POTASSIUM 4.4 mmol/L (3.5-5.1); SODIUM 141 mmol/L (136-145); TCO2 35 mmol/L (25-35); TOTAL BILIRUBIN 0.44 mg/dL (0.20-1.00); TOTAL PROTEIN 6.9 g/dL (6.3-8.3)
[2019-03-28] MEDS: LASIX IV SCH ×2 (10:32→20:41)
[2019-03-28] MEDS: ZYVOX 600 MG/D5W 600 MG/300 ML IVPB IV SCH ×2 (10:33→20:41)
--- NOTE | 2019-03-28 15:46 | PROGRESS NOTE ---
DATE: 03/28/2019 SUBJECTIVE: The patient seems to be doing much better compared with yesterday. She is more awake. She is following commands. She is able to answer some of my simple questions. She is oriented to person. Family members at the bedside. I will continue with same management except that I will start this patient on a diet and we will monitor this patient in the PVC unit. OBJECTIVE: Vital Signs: Temperature 97.5 degrees, pulse 113, respiratory rate 22, blood pressure 130/95, oxygen saturation 98 on a Venturi mask. HEENT: Head normocephalic, no trauma. PERRLA. Neck: Supple. No JVD. No masses. Central trachea. Chest: Coarse breath sounds bilaterally with bilateral crackles. Abdomen: Soft, generalized tenderness to palpation especially at the level of the lower abdomen. Extremities: 3+ lower extremity edema. No clubbing. No cyanosis. Neurological: The patient is awake. She is more awake than yesterday, she is following commands on and off. She seems to be a little bit better. LABORATORY: WBC 9.4, hemoglobin 11.5, hematocrit 39.3, platelets 229,000, sodium 141, potassium 4.4, chloride 95, bicarbonate 35, BUN 13, creatinine 0.7, glucose 155, calcium 9.3. ASSESSMENT AND PLAN: 1. Metabolic encephalopathy, likely infectious encephalopathy, this is much better. We will continue with the same management. Continue with antibiotics. 2. Healthcare associated pneumonia, continue broad-spectrum antibiotics including Zyvox and Zosyn. 3. Urinary tract infection. Continue with antibiotics as above. 4. Congestive heart failure exacerbation with pulmonary hypertension. Continue with IV Lasix twice a day for now. 5. Cardiac cirrhosis, her ammonia level is 53, which is slightly elevated. No bowel movement so far. We will try to help this with suppositories, Dulcolax suppository during the night. 6. Atrial fibrillation with rapid ventricular response. Continue with Cardizem. 7. Acute on chronic hypercarbic and hypoxemic respiratory failure, the patient has been initiated on the BiPAP machine but now she is on a Ventimask. 8. Abdominal pain. KUB showed possible constipation and/or nonspecific abdomen. 9. This patient is Do Not Resuscitate level 1. cc: Daron Chung MD
[2019-03-28] MEDS: PROTONIX IV SCH (20:41)
[2019-03-28] MEDS: SODIUM CHLORIDE 0.9% INJ SCH (20:41)
[2019-03-28] MEDS: DULCOLAX PR SCH (20:42)
[2019-03-29] MEDS: ZOSYN 3.375 GM in NS 50 ML IV SCH ×5 (00:21→22:45)
[2019-03-29 06:16] LABS: BASO# 0.04 X1000 (0.0-0.2); BASO% 0.5 % (0.0-0.8); EOS# 0.21 X1000 (0.0-0.7); EOS% 2.7 % (0.0-10.0); HEMATOCRIT 37.1 % (37.0-47.0); IMM GRAN# 0.02 X1000 (0.0-0.04); IMM GRAN% 0.3 % (0.0-0.5); LYMPH# 1.14 X1000 (1.2-3.4); LYMPH% 14.6 % (20.5-51.1); MCH 28.6 PG (27-31); MCHC 29.6 g/dL (33-37); MCV 96.6 FL (81-99); MONO# 0.79 X1000 (0.11-0.59); MONO% 10.1 % (1.7-9.3); MPV 10.3 FL (7.4-10.4); NEUT# 5.61 X1000 (1.4-6.5); NEUT% 71.8 % (42.2-75.2); PLT 260 X1000 (130-400); RBC 3.84 XMIL (4.2-5.4); RDW 13.5 % (11.5-14.5); WBC 7.81 X1000 (4.8-10.8)
[2019-03-29 06:45] LABS: AGAP 10; ALB/GLOB RATIO 0.6; ALBUMIN 2.7 g/dL (3.5-5.0); ALKALINE PHOSPHATASE 60 U/L (32-104); BUN 13 mg/dL (8-22); CALCIUM 9.2 mg/dL (8.8-10.2); CHLORIDE 91 mmol/L (98-107); COSMO 281; CREATININE 0.9 mg/dL (0.5-0.9); ESTIMATED GFR 59; GLUCOSE 164 mg/dL (70-104); GOT 10 U/L (10-30); GPT < 5 U/L (10-36); POTASSIUM 3.3 mmol/L (3.5-5.1); SODIUM 139 mmol/L (136-145); TCO2 38 mmol/L (25-35); TOTAL BILIRUBIN 0.33 mg/dL (0.20-1.00)
[2019-03-29] MEDS ORDERED: KLOR-CON PO ONE (07:34)
[2019-03-29] MEDS: LASIX IV SCH (09:26)
[2019-03-29] MEDS: ZYVOX 600 MG/D5W 600 MG/300 ML IVPB IV SCH ×2 (09:26→20:32)
[2019-03-29] MEDS: LOPRESSOR PO SCH ×2 (09:26→20:32)
--- NOTE | 2019-03-29 09:46 | PROGRESS NOTE ---
DATE: 03/29/2019 SUBJECTIVE: The patient seems to be doing better. She is still hypoxemic and using a Ventimask. We have a negative balance of 2.3 L. I will decrease the dose of the Lasix from twice a day to once a day. We have a positive culture up from the urine that showed gram-positive cocci. She has been covered with Zosyn and linezolid, and I will continue with the same management. She does have right upper quadrant pain and periumbilical pain. I will ask for abdominal ultrasound. She is basically bed-bound and, as per the daughter she has been bed-bound for the past 4 months. I will request physical therapy to start working on this patient for range of motion. OBJECTIVE: Vital Signs: Temperature 97.5 degrees, pulse 93, respiratory rate 18, blood pressure 133/80, oxygen saturation 100% on a Venturi mask. HEENT: Head normocephalic, no trauma. PERRLA. Neck: Supple. No JVD. No masses. Central trachea. Chest: Coarse breath sounds bilaterally with some crackles at the bases and some rhonchi scattered at the bases as well. Abdomen: Soft. Generalized tenderness to palpation, especially at the level of the lower abdomen and right upper quadrant. Extremities: Decreased from 3+ lower extremity edema to 1+ to 2+ lower extremity edema. No clubbing. No cyanosis. Neurological examination: The patient is awake. She has been having problems sleeping. She seems to be much better compared with admission. Probably this is her baseline. She is answering to some of my questions. She is hard of hearing. LABORATORY: WBC 7.8, hemoglobin 11, hematocrit 37.1, platelet 260. Sodium 139, potassium 3.3, chloride 98.1, bicarbonate 38. BUN 13, creatinine 0.9, glucose 164, calcium 9.2, albumin 2.7. ASSESSMENT AND PLAN: 1. Metabolic encephalopathy, likely infectious encephalopathy. This is much better. This patient likely also has a baseline dementia. Continue with antibiotics. 2. Healthcare-associated pneumonia. Continue broad-spectrum antibiotics, Zyvox and Zosyn. She seems to be better. 3. Acute on chronic hypercarbic and hypoxemic respiratory failure. This patient initially has been initiated on the BiPAP machine, now she is on a Ventimask, likely due to some fluid overload and pneumonia. This seems to be a little bit better. We will continue with same management. 4. Urinary tract infection. Continue with antibiotics. Positive urine culture that showed gram- positive cocci. 5. Congestive heart failure with pulmonary hypertension which is severe/ continue with Lasix once a day. We have a negative balance of 2.3 liters. 6. Cardiac cirrhosis. She is having bowel movements now. She was constipated. Continue with same treatment. Ammonia level was slightly elevated at 53. 7. Atrial fibrillation with rapid ventricular response. Continue with Cardizem. 8. The rapid ventricular response resolved, so I will put her on oral treatment now. 9. Abdominal pain. KUB showed possible constipation, but now is resolved, but she is still complaining of abdominal pain, especially periumbilical lower abdomen and right upper quadrant. I have requested an ultrasound. 10. This patient is do not resuscitate level 1. 11. Hypokalemia. I will replace the potassium. 12. Generalized weakness. Basically this patient is bed-bound. Physical therapy has been consulted. 13. Severe pulmonary hypertension. Aware. cc: Daron Chung MD
[2019-03-29] MEDS: ULTRAM PO PRN ×2 (14:47→20:32)
--- NOTE | 2019-03-29 15:03 | Diag Imaging Result Doc PS360 ---
EXAM: US ABDOMEN-COMPLETE INDICATION: Abdominal pain COMPARISON: 08/02/2018 FINDINGS: There has been a prior cholecystectomy. The common bile duct is normal in diameter. A small calcified granuloma is noted in the liver incidentally. The liver is grossly unremarkable, otherwise. Portal venous flow is hepatopetal. The visualized pancreas is unremarkable. The aorta and IVC are grossly unremarkable. There are calcified granulomata in the spleen. Spleen is unremarkable, otherwise. The kidneys are essentially unremarkable. IMPRESSION: Essentially unremarkable abdominal ultrasound. Electronically signed by Serafin Luna 03/29/2019 3:01 PM
[2019-03-29] MEDS ORDERED: ATIVAN IV ONE (15:23)
[2019-03-29] MEDS ORDERED: ULTRAM PO SCH (17:00)
[2019-03-29] MEDS: PROTONIX IV SCH (20:32)
[2019-03-29] MEDS: DULCOLAX PR SCH (20:40)
[2019-03-29] MEDS ORDERED: LASIX IV ONE (23:00)
--- NOTE | 2019-03-30 01:41 | PULMONOLOGY CONSULTATION ---
DATE: 03/29/2019 REQUESTING CLINICIAN: Dr. Ulloa. REASON FOR CONSULT: Respiratory failure. HISTORY OF PRESENT ILLNESS: Ms. Cruz is an 84-year-old white female with diastolic heart failure, severe pulmonary hypertension, cardiac cirrhosis, who has been bed-bound for the last several years. The patient presented to the emergency room with lethargy and change in her mental status. Arterial blood gas revealed mild acute on chronic hypercapnic respiratory failure with acute hypoxemic respiratory failure. Her white blood count was elevated at 12.46. Chest x-ray was performed which revealed increased density at the left base. PAST MEDICAL HISTORY: 1. Diastolic heart failure. 2. Severe pulmonary hypertension with a right ventricular systolic pressure of 96 on echocardiogram in July of 2018. 3. Presumptive COPD with a 25 pack-year history for tobacco. 4. Possible cirrhosis. 5. Diabetes. 6. Atrial fibrillation. 7. Gastroesophageal reflux disease. 8. Chronic anxiety disorder associated with chronic insomnia. 9. Dyslipidemia. 10. Depression. 11. History of subdural hematoma. SOCIAL HISTORY: Patient had a 25 pack-year history for tobacco but has not smoked for 4 years. No alcohol use. FAMILY HISTORY: Noncontributory at the current presentation. REVIEW OF SYSTEMS: Notable for generalized weakness, shortness of breath, confusion which is resolving, anxiety, and insomnia. PHYSICAL EXAMINATION: General: Reveals a chronically ill-appearing white female in no distress. Vital Signs: Blood pressure 127/78, heart rate 86, respiratory rate 21, oxygen saturation 98% on 4 L per nasal cannula. HEENT: Pupils are equal and reactive. Oropharynx appears clear. Neck: Supple. Chest: Reveals irregular irregular rhythm with prominent S2. Abdomen: Soft. Chest: Reveals decreased breath sounds left greater than right lung base. Extremities: Reveal trace edema. LABORATORIES: White blood count on admission 12.46. White blood count today 7.81, hemoglobin 11.0, platelet count 260,000. Sodium 139, potassium 3.3, chloride 91, bicarbonate 38, BUN 13, creatinine 0.9. Microbiology reveals Enterococcus faecalis in her urine culture. IMPRESSION: An 84-year-old with: 1. Chronic hypoxemic respiratory failure with acute respiratory failure at presentation. 2. Mild acute on chronic hypercapnic respiratory failure. 3. Severe pulmonary hypertension with exacerbation of diastolic heart failure. 4. Urinary tract infection with leukocytosis. DISCUSSION: An 84-year-old with problems outlined above. Her current presentation may have been triggered by her urinary tract infection. Clinically, she appears to be improving. RECOMMENDATIONS: 1. Continue treatment of urinary tract infection as you are doing. 2. One additional dose of Lasix this evening. 3. Continue bronchial hygiene. 4. Follow up chest x-ray tomorrow morning. 5. Agree with palliative measures. cc: Nakul Coleman MD
[2019-03-30] MEDS: ZOSYN 3.375 GM in NS 50 ML IV SCH ×4 (04:43→22:23)
[2019-03-30 06:32] LABS: BASO# 0.03 X1000 (0.0-0.2); BASO% 0.4 % (0.0-0.8); EOS# 0.23 X1000 (0.0-0.7); EOS% 3.2 % (0.0-10.0); HEMATOCRIT 39.7 % (37.0-47.0); HEMOGLOBIN 11.8 g/dL (12.0-16.0); IMM GRAN# 0.02 X1000 (0.0-0.04); IMM GRAN% 0.3 % (0.0-0.5); LYMPH% 15.1 % (20.5-51.1); MCH 28.9 PG (27-31); MCHC 29.7 g/dL (33-37); MCV 97.1 FL (81-99); MONO# 0.68 X1000 (0.11-0.59); MONO% 9.4 % (1.7-9.3); MPV 10.2 FL (7.4-10.4); NEUT# 5.21 X1000 (1.4-6.5); NEUT% 71.6 % (42.2-75.2); PLT 254 X1000 (130-400); RBC 4.09 XMIL (4.2-5.4); RDW 13.7 % (11.5-14.5); WBC 7.27 X1000 (4.8-10.8)
[2019-03-30 06:57] LABS: ESTIMATED GFR > 60
[2019-03-30 07:09] LABS: AGAP 10; ALB/GLOB RATIO 0.6; ALBUMIN 2.9 g/dL (3.5-5.0); ALKALINE PHOSPHATASE 60 U/L (32-104); BUN 11 mg/dL (8-22); CHLORIDE 88 mmol/L (98-107); COSMO 283; CREATININE 0.8 mg/dL (0.5-0.9); GLUCOSE 172 mg/dL (70-104); GOT 11 U/L (10-30); GPT < 5 U/L (10-36); MAGNESIUM 1.4 mg/dL (1.5-2.7); PHOSPHORUS 3.2 mg/dL (2.7-4.5); POTASSIUM 3.3 mmol/L (3.5-5.1); SODIUM 140 mmol/L (136-145); TCO2 42 mmol/L (25-35); TOTAL BILIRUBIN 0.26 mg/dL (0.20-1.00); TOTAL PROTEIN 7.4 g/dL (6.3-8.3)
[2019-03-30] MEDS ORDERED: KLOR-CON PO ONE (07:24)
[2019-03-30] MEDS: ATIVAN PO PRN ×3 (07:39→23:31)
[2019-03-30] MEDS ORDERED: MAGNESIUM SULFATE 2 GM/S.W.I. 2 GM/50 ML IVPB IV ONE (08:00)
--- NOTE | 2019-03-30 08:00 | Diag Imaging Result Doc PS360 ---
EXAM: CHEST-PORTABLE INDICATION: dyspnea TECHNIQUE: One view COMPARISON: 03/28/2019 FINDINGS: Bilateral airspace infiltrates most consistent with pulmonary edema +/- superimposed pneumonia is approximately stable. There is a stable left effusion. There is stable pulmonary venous congestion. Cardiac silhouette is unchanged. IMPRESSION: Essentially stable chest. Electronically signed by Serafin Luna 03/30/2019 7:57 AM
[2019-03-30] MEDS: ZYVOX 600 MG/D5W 600 MG/300 ML IVPB IV SCH ×2 (09:11→20:32)
[2019-03-30] MEDS: LASIX IV SCH (09:12)
[2019-03-30] MEDS: LOPRESSOR PO SCH ×2 (09:12→20:31)
--- NOTE | 2019-03-30 12:24 | PROGRESS NOTE ---
DATE: 03/30/2019 SUBJECTIVE: The patient is breathing better but she is complaining of insomnia, apparently she has not been able to sleep too much and she is having some hallucinations. Family has requested Ativan, which is a medication that she takes at home to be able to calm down and sleep, so I will put her back on this medication. I will continue with the antibiotics. Urine culture showed enterococcal faecalis. Compared with admission, this patient looks better. Blood culture is negative. OBJECTIVE: Vital Signs: Temperature 97.6 degrees, pulse 92, respiratory rate 18, blood pressure 147/95, oxygen saturation 96% on 4 L of nasal cannula. HEENT: Head normocephalic, no trauma, PERRLA. Neck: Supple. No JVD. No masses. Central trachea. Chest: Coarse breath sounds bilaterally with some crackles at the bases with some rhonchi scattered at the bases as well. Abdomen: Soft, generalized tenderness to palpation especially at the level of the left lower and right upper quadrants. Extremities: There is 1 to 2+ extremity edema. No clubbing, no cyanosis. Neurological: The patient is awake. She has been having problems sleeping. She seems to be having some hallucinations on and off. She is seeing some snakes around, probably she has a baseline dementia. She is hard of hearing. LABORATORY: WBC 7.2, hemoglobin 11.8, hematocrit 39.7, platelet count 254,000. Sodium 140, potassium 3.3, chloride 98, bicarbonate 42, BUN 11, creatinine 0.8, glucose 172, calcium 9, magnesium 1.4. ASSESSMENT AND PLAN: 1. Metabolic encephalopathy, likely infectious encephalopathy. This patient also has not been able to sleep. I will put her back on her home medications with Ativan 1 mg p.o. every 6 hours to see how she does. 2. Healthcare associated pneumonia. Continue with broad spectrum antibiotics, Zyvox and Zosyn. 3. Urinary tract infection with a positive culture that showed Enterococcus. Continue with same treatment. 4. Acute on chronic hypercarbic and hypoxemic respiratory failure. The patient initially was initiated on the BiPAP machine, then Ventimask, now she is tolerating nasal cannula. She received an extra dose of Lasix yesterday. We have a negative balance of 4 L now. She seems to be improving in that regard. 5. Congestive heart failure exacerbation, diastolic, with severe pulmonary hypertension, negative balance of 4 L. Continue with same management. She seems to be improving slowly. 6. 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 We will monitor. 7. Atrial fibrillation with rapid ventricular response (RVR). Continue with Cardizem, heart rate is better controlled. 8. Abdominal pain. KUB showed possible constipation, now resolved. She is still complaining of some abdominal discomfort, especially periumbilical area. 9. Hypokalemia with hypomagnesemia. I will replace both. 10. Generalized weakness. Basically, this patient is bedbound. Physical Therapy has been consulted. 11. Severe pulmonary hypertension. Aware. Continue with the same management for now. 12. Gastroesophageal reflux disease. Continue with same management. 13. Diabetes. Stable. cc: Daron Chung MD MTDD
[2019-03-30] MEDS ORDERED: CALMOSEPTINE OINTMENT TOP PRN (15:52)
[2019-03-30] MEDS: PROTONIX IV SCH (20:31)
[2019-03-30] MEDS: DULCOLAX PR SCH (20:32)
[2019-03-30] MEDS ORDERED: LASIX IV ONE (21:00)
--- NOTE | 2019-03-31 00:19 | PULMONOLOGY PROGRESS NOTE ---
DATE: 03/30/2019 SUBJECTIVE: The patient is arousable. She denies shortness of breath. She continues to report insomnia, but she was sleeping upon my arrival. OBJECTIVE: Vital Signs: The patient has been afebrile for the last 24 hours. Blood pressure 137/76, heart rate 81, respiratory rate 23, oxygen saturation 96% on 4 L per nasal cannula. HEENT: Pupils are equal and reactive. Oropharynx appears clear. Neck: Supple. Chest: Reveals diminished breath sounds left base. Cardiac: S1-S2. Abdomen: Soft/obese. Extremities: Reveal trace edema. LABORATORIES: White blood count 7.27, hemoglobin 11.8, platelet count 254,000. Sodium 140, potassium 3.3, chloride 88, bicarbonate 42, BUN 11, creatinine 0.8. IMPRESSION: An 84-year-old with: 1. Chronic hypoxemic respiratory failure with acute respiratory failure on admission. 2. Chronic hypercapnic respiratory failure. 3. Severe pulmonary hypertension. 4. Exacerbation of diastolic heart failure. 5. Urinary tract infection. 6. Probable left-sided pleural effusion. PLAN: 1. Continue antibiotics for urinary tract infection. 2. Continue oxygen as needed for hypoxemic respiratory failure. 3. Continue bronchial hygiene. 4. Additional diuresis as tolerated. 5. Follow up chest x-ray tomorrow. 6. Allow a natural if she were to during this hospitalization at her request. cc: Nakul Coleman MD
[2019-03-31] MEDS: ZOSYN 3.375 GM in NS 50 ML IV SCH ×4 (04:32→22:35)
[2019-03-31 06:29] LABS: BASO# 0.05 X1000 (0.0-0.2); BASO% 0.5 % (0.0-0.8); EOS% 4.3 % (0.0-10.0); HEMATOCRIT 38.3 % (37.0-47.0); HEMOGLOBIN 11.3 g/dL (12.0-16.0); IMM GRAN# 0.03 X1000 (0.0-0.04); IMM GRAN% 0.3 % (0.0-0.5); LYMPH# 1.45 X1000 (1.2-3.4); LYMPH% 15.5 % (20.5-51.1); MCH 28.5 PG (27-31); MCHC 29.5 g/dL (33-37); MCV 96.5 FL (81-99); MONO# 0.75 X1000 (0.11-0.59); MPV 10.5 FL (7.4-10.4); NEUT# 6.68 X1000 (1.4-6.5); NEUT% 71.4 % (42.2-75.2); PLT 274 X1000 (130-400); RBC 3.97 XMIL (4.2-5.4); RDW 13.6 % (11.5-14.5); WBC 9.36 X1000 (4.8-10.8)
[2019-03-31 07:15] LABS: ESTIMATED GFR > 60
[2019-03-31 07:22] LABS: AGAP 9; ALB/GLOB RATIO 0.6; ALBUMIN 2.8 g/dL (3.5-5.0); ALKALINE PHOSPHATASE 56 U/L (32-104); BUN 9 mg/dL (8-22); CALCIUM 9.2 mg/dL (8.8-10.2); CHLORIDE 89 mmol/L (98-107); COSMO 280; CREATININE 0.8 mg/dL (0.5-0.9); GLUCOSE 171 mg/dL (70-104); GOT 11 U/L (10-30); GPT < 5 U/L (10-36); MAGNESIUM 1.7 mg/dL (1.5-2.7); PHOSPHORUS 2.4 mg/dL (2.7-4.5); POTASSIUM 3.4 mmol/L (3.5-5.1); SODIUM 139 mmol/L (136-145); TCO2 41 mmol/L (25-35); TOTAL BILIRUBIN 0.26 mg/dL (0.20-1.00); TOTAL PROTEIN 7.2 g/dL (6.3-8.3)
--- NOTE | 2019-03-31 07:43 | PROGRESS NOTE ---
DATE: 03/31/2019 SUBJECTIVE: The patient is lying in bed. It looks like her breathing is better, but she is still complaining of some insomnia. As per the patient, she slept a little bit, and she is hungry. No family members at the bedside. I will add melatonin to her medications, and I will continue with the same medications that she has been taking at home. I will continue with antibiotics as well. She has been having good urine output. I will continue with Lasix once a day. We have, so far, a negative balance of 5.3 L. OBJECTIVE: Vital Signs: Temperature 97.8 degrees, pulse 88, respiratory rate 22, blood pressure 122/62, oxygen saturation 90 on 4 L of nasal cannula. HEENT: Head normocephalic. No trauma. PERRLA. Neck: Supple. No JVD. No masses. Central trachea. Chest: Coarse breath sounds bilaterally with some crackles at the bases. Some rhonchi at the bases as well. Abdomen: Soft. Generalized tenderness to palpation, especially at the level of the lower abdomen. Extremities: There is 1+ lower extremity edema. No clubbing. No cyanosis. Neurological: The patient is awake. She is answering some of my questions. She has been having problems sleeping. She is not having hallucinations at this moment. She is hard of hearing. LABORATORY DATA: WBC 9.3, hemoglobin 11.3, hematocrit 38.3. Pending CMP. ASSESSMENT AND PLAN: 1. Metabolic encephalopathy, likely infectious encephalopathy in a patient with medical history of dementia. As per the patient, she has not been able to sleep good. I will continue with her home medications, which include Ativan 1 mg by mouth every 6 hours as needed, and I will add melatonin in the afternoon. 2. Healthcare-associated pneumonia. Continue with broad-spectrum antibiotics, Zyvox and Zosyn. 3. Urinary tract infection with a positive culture that showed Enterococcus. Continue with the same management. 4. Acute on chronic hypercarbic and hypoxemic respiratory failure. Initially, this patient was initiated on the bilevel positive airway pressure machine. Then, she started tolerating a Ventimask, and now she is on a nasal cannula. She has been diuresing well. She is still a little bit overloaded. Continue with the same treatment. 5. Diastolic congestive heart failure exacerbation with severe pulmonary hypertension. Like I mentioned before, we have a negative balance of 5.3 liters. I think she is diuresing well. I will continue to monitor. 6. 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 Aware. 7. Atrial fibrillation with rapid ventricular response, resolved. I placed this patient on Lopressor 12.5 mg by mouth twice a day, and she seems to be tolerating this treatment well. 8. Hypokalemia with hypomagnesemia. I have been replacing both. Pending lab work today. 9. Generalized weakness. Basically, this patient has been bedbound for more than 4 months. Physical Therapy consulted. 10. Severe pulmonary hypertension. Aware. Continue with the same management. 11. Gastroesophageal reflux disease. Continue with the same treatment. 12. Diabetes, stable. Overall, this patient seems to be much better compared with admission. I will continue with the same management for now. I will continue with Ativan, and I will add melatonin to see if that can help her sleep. Her atrial fibrillation with rapid ventricular response has been controlled with a low dose of metoprolol. I believe these can be increased if the blood pressure and the heart rate allows. Pulmonary Department on board. cc: Daron Chung MD
--- NOTE | 2019-03-31 07:54 | Diag Imaging Result Doc PS360 ---
EXAM: CHEST-PORTABLE HISTORY: abnormal exam TECHNIQUE: Single view COMPARISON: 03/30/2019 FINDINGS: The patient is rotated to the left. Heart is enlarged and there is pulmonary edema. There is a [id number] sized left pleural effusion with basilar atelectasis and possibly underlying pneumonia. There are infiltrates in the lower right lung is well. IMPRESSION: No interval improvement Electronically signed by Wayne Richmond 03/31/2019 7:52 AM
[2019-03-31] MEDS: ZYVOX 600 MG/D5W 600 MG/300 ML IVPB IV SCH ×2 (09:02→21:10)
[2019-03-31] MEDS: LASIX IV SCH (09:03)
[2019-03-31] MEDS: LOPRESSOR PO SCH ×2 (09:04→21:05)
[2019-03-31] MEDS: ATIVAN PO PRN (10:28)
[2019-03-31] MEDS: MELATONIN PO SCH (21:04)
[2019-03-31] MEDS: PROTONIX IV SCH (21:04)
[2019-03-31] MEDS: DULCOLAX PR SCH (21:14)
[2019-03-31] MEDS: LASIX IV ONE (22:52)
[2019-04-01] MEDS: ATIVAN PO PRN ×3 (02:26→22:45)
--- NOTE | 2019-04-01 02:35 | PULMONOLOGY PROGRESS NOTE ---
DATE: 03/31/2019 SUBJECTIVE: The patient is awake and alert. She reports her nerves are bad. She has not slept well. She also reports some shortness of breath. OBJECTIVE: Vital Signs: BP 143/82, heart rate 95, respiratory rate 26, oxygen saturation 97% on 4 L per nasal cannula. HEENT: Pupils are equal and reactive. Oropharynx appears clear. Neck: Supple. Chest: Reveals decreased breath sounds left greater than right base. Cardiac: S1-S2. Abdomen: Soft. Extremities: Reveal trace edema. LABORATORIES: Chest x-ray reveals cardiomegaly, pulmonary edema, left-sided pleural effusion with possible basilar infiltrates. Sodium 139, potassium 3.4, chloride 89, bicarbonate 41, BUN 9, creatinine 0.8. White blood count 9.36, hemoglobin 11.3, platelet count 274,000. IMPRESSION: An 84-year-old with: 1. Chronic hypoxemic respiratory failure. 2. Acute hypoxemic respiratory failure. 3. Chronic hypercapnic respiratory failure. 4. Severe pulmonary hypertension with acute cor pulmonale. 5. Exacerbation of diastolic heart failure. 6. Urinary tract infection. PLAN: 1. Continue antibiotics for urinary tract infection. 2. Continue oxygen for hypoxemic respiratory failure. 3. Continue bronchial hygiene. 4. Diuresis as tolerated. cc: Nakul Coleman MD
[2019-04-01] MEDS: ZOSYN 3.375 GM in NS 50 ML IV SCH ×3 (05:46→17:32)
--- NOTE | 2019-04-01 07:30 | Diag Imaging Result Doc PS360 ---
EXAM: CHEST-PORTABLE 04/01/2019 HISTORY: dyspnea TECHNIQUE: AP portable at 0605 COMMENT: There is alveolar opacity in the left lower lobe and right lower lobe. There are most likely bilateral pleural effusions. Compared to 03/31/2019 the opacification in the right base is worse. IMPRESSION: Worsened pulmonary edema and/or pneumonia. Electronically signed by Preston Henson 04/01/2019 7:28 AM
[2019-04-01] MEDS ORDERED: POTASSIUM CHLORIDE 20% LIQUID PO ONE (07:41)
[2019-04-01 07:52] LABS: BASO# 0.05 X1000 (0.0-0.2); BASO% 0.4 % (0.0-0.8); EOS# 0.01 X1000 (0.0-0.7); EOS% 0.1 % (0.0-10.0); HEMATOCRIT 40.2 % (37.0-47.0); HEMOGLOBIN 11.7 g/dL (12.0-16.0); IMM GRAN# 0.04 X1000 (0.0-0.04); IMM GRAN% 0.3 % (0.0-0.5); LYMPH% 8.8 % (20.5-51.1); MCH 28.5 PG (27-31); MCHC 29.1 g/dL (33-37); MONO# 0.68 X1000 (0.11-0.59); MONO% 5.5 % (1.7-9.3); MPV 10.2 FL (7.4-10.4); NEUT# 10.58 X1000 (1.4-6.5); NEUT% 84.9 % (42.2-75.2); PLT 252 X1000 (130-400); RDW 13.8 % (11.5-14.5); WBC 12.46 X1000 (4.8-10.8)
[2019-04-01 08:36] LABS: CALCIUM 9.3 mg/dL (8.8-10.2); CREATININE 0.9 mg/dL (0.5-0.9); MAGNESIUM 1.6 mg/dL (1.5-2.7); PHOSPHORUS 3.5 mg/dL (2.7-4.5); POTASSIUM 3.7 mmol/L (3.5-5.1)
[2019-04-01] MEDS: LASIX IV SCH ×2 (10:49→17:32)
[2019-04-01] MEDS: LOPRESSOR PO SCH ×2 (10:50→22:45)
[2019-04-01] MEDS: ZYVOX 600 MG/D5W 600 MG/300 ML IVPB IV SCH (10:51)
[2019-04-01] MEDS ORDERED: LASIX IV ONE (11:43)
[2019-04-01] MEDS: DUONEB (A & A) INH PRN ×3 (11:44→23:58)
[2019-04-01] MEDS ORDERED: LASIX ONE (11:49)
[2019-04-01] MEDS: LASIX IV ONE (12:08)
--- NOTE | 2019-04-01 17:55 | PROGRESS NOTE ---
DATE: 04/01/2019 SUBJECTIVE: The patient has been disoriented and complains of having body aches. She denies having any other complaints, but has been dyspneic. OBJECTIVE: Vital Signs: Temperature 97.4 degrees, pulse 96 per minute, respiratory rate 22 per minute, blood pressure 165/92, and pulse oximetry 91 percent on 4 L of oxygen via nasal cannula. Cardiovascular: First and second heart sounds are audible with somewhat tachycardia. Respiratory: Bilateral lung air entry is moderately decreased with bilateral rales present on auscultation. Gastrointestinal: Abdomen is soft and nondistended. Normal bowel sounds are present. DIAGNOSTIC DATA: CBC shows WBC count of 12.46, hemoglobin 11.7, hematocrit 40.2, and platelet count 252,000. Chemistry showed glucose of 200. Rest of the basic metabolic panel was nondiagnostic. Magnesium levels were found to be normal at 1.6. The chest x-ray obtained this morning showed worsening pulmonary edema with possible underlying infiltrates. IMPRESSION: 1. Acute on chronic hypoxemic respiratory failure secondary to pneumonia and pulmonary edema. 2. Diastolic congestive heart failure with acute exacerbation. 3. Urinary tract infection. 4. Chronic atrial fibrillation. 5. Type 2 diabetes mellitus. 6. Generalized deconditioning. PLAN: The patient will continue to get Zosyn along with Zyvox for her pneumonia and urinary tract infection. We will continue with the IV furosemide for pulmonary edema and diastolic congestive heart failure. She will get an extra furosemide 80 mg IV today as well. We will continue with the rest of her care including supportive care. Her overall condition has been getting worse, and her prognosis has been poor. Family is well aware of that. The patient is already DNR, and hospice has been recommended to her, but because of her overall unstable condition, we are going to keep her at the hospital at this time. Further recommendations will be as per hospital course. cc: Lyle Sands MD
--- NOTE | 2019-04-01 20:17 | PULMONOLOGY PROGRESS NOTE ---
DATE: 04/01/2019 SUBJECTIVE: The patient is awake and alert. She denies dyspnea today. She does report pain, anxiety and insomnia. OBJECTIVE: Vital Signs: The patient has been afebrile for the last 24 hours. Blood pressure 144/104 respiratory rate 18, heart rate 102, oxygen saturation 95% on 4 L per nasal cannula. HEENT: Pupils are equal and reactive. Oropharynx appears clear. Neck: Supple. Chest: Reveals diminished breath sounds both lung bases. Cardiac: Distant heart sounds. Irregular rhythm. Abdomen: Soft. Extremities: Reveal 1+ peripheral edema. LABORATORY DATA: Chest x-ray reveals cardiomegaly, volume loss/loss of the diaphragm on the left, increased density at the right base compared to yesterday. White blood count 12.46, hemoglobin 11.7, platelet count 252,000. Sodium 138, potassium 3.7, chloride 86, bicarbonate 40, BUN 12, creatinine 0.9. IMPRESSION: An 84-year-old with: 1. Chronic hypoxemic respiratory failure. 2. Acute hypoxemic respiratory failure. 3. Chronic hypercapnic respiratory failure. 4. Acute cor pulmonale. 5. Severe pulmonary hypertension. 6. Exacerbation of diastolic heart failure. 7. Urinary tract infection. DISCUSSION: An 84-year-old with the problems outlined above. She appears to have diuresed, but has only had slight decrease in her weight. Chest x-ray today looks worse than yesterday and may be related to positioning. Her prognosis is poor given her diastolic heart failure, severe pulmonary hypertension, hypoxemic respiratory failure, and bed-bound status. RECOMMENDATIONS: 1. Continue to push diuretics as tolerated. Would attempt to avoid hypotension, and avoid significant increase in her BUN/creatinine ratio. 2. Continue oxygen for hypoxemic respiratory failure. 3. Agree with evaluation for hospice. cc: MD Lyle Johnson MD
[2019-04-01] MEDS: MELATONIN PO SCH (23:14)
[2019-04-02] MEDS: ZOSYN 3.375 GM in NS 50 ML IV SCH ×4 (01:00→22:02)
[2019-04-02] MEDS: PROTONIX IV SCH ×2 (01:59→22:02)
[2019-04-02] MEDS: LASIX IV SCH ×2 (02:06→10:58)
[2019-04-02] MEDS: ZYVOX 600 MG/D5W 600 MG/300 ML IVPB IV SCH ×3 (02:07→22:01)
[2019-04-02] MEDS: DULCOLAX PR SCH (03:00)
[2019-04-02] MEDS: DUONEB (A & A) INH PRN ×3 (04:13→15:54)
[2019-04-02 05:36] LABS: ALLEN TEST YES; BE 18.2 mmoll (-3.0-3.0); BLOOD TYPE ARTERIAL; HCO3-(ACT) 39.1 mmoll (20.0-26.0); METHB 1.3 % (0.0-1.5); O2HB 96.8 % (95.0-99.0); PO2(98.6) 138 mmHg (60-100); SAMPLE BLOOD; SAO2 99.4 % (95.0-100.0); THB 15.3 g/dL (11.5-17.4); pH(98.6) 7.38 (7.35-7.45)
[2019-04-02 05:38] LABS: MODALITY BI PAP; PCO2(98.6) 82 mmHg (35-45)
--- NOTE | 2019-04-02 07:22 | Diag Imaging Result Doc PS360 ---
CHEST-PORTABLE - 04/02/2019 INDICATION: Pneumonia; Respiratory Failure COMPARISON: 04/01/2019 FINDINGS: There is worsening opacification on the left side, with essentially complete opacification of the left hemithorax. There has been significant decrease in the focal opacity at the right hilum. Interstitial opacity remains throughout the right lung suggesting pulmonary edema. There is probably cardiomegaly. No significant deviation of the mediastinum. IMPRESSION: Mixed changes, with overall mild worsening from prior. Electronically signed by Gregg Delacruz 04/02/2019 7:20 AM
[2019-04-02 07:29] LABS: BASO# 0.07 X1000 (0.0-0.2); BASO% 0.8 % (0.0-0.8); EOS# 0.01 X1000 (0.0-0.7); EOS% 0.1 % (0.0-10.0); HEMATOCRIT 40.3 % (37.0-47.0); HEMOGLOBIN 11.9 g/dL (12.0-16.0); IMM GRAN# 0.03 X1000 (0.0-0.04); IMM GRAN% 0.4 % (0.0-0.5); LYMPH# 0.95 X1000 (1.2-3.4); LYMPH% 11.5 % (20.5-51.1); MCH 28.6 PG (27-31); MCHC 29.5 g/dL (33-37); MCV 96.9 FL (81-99); MONO# 0.47 X1000 (0.11-0.59); MONO% 5.7 % (1.7-9.3); MPV 10.4 FL (7.4-10.4); NEUT# 6.73 X1000 (1.4-6.5); NEUT% 81.5 % (42.2-75.2); PLT 208 X1000 (130-400); RBC 4.16 XMIL (4.2-5.4); RDW 13.9 % (11.5-14.5); WBC 8.26 X1000 (4.8-10.8)
[2019-04-02 08:03] LABS: CALCIUM 9.1 mg/dL (8.8-10.2); POTASSIUM 3.8 mmol/L (3.5-5.1)
--- NOTE | 2019-04-02 09:29 | PROGRESS NOTE ---
DATE: 04/02/2019 SUBJECTIVE: The patient remains tachypneic and has been disoriented. She is not able to answer appropriate questions because of her altered mental status. OBJECTIVE: Vital Signs: Temperature 98.3 degrees, pulse 92 per minute, respiratory rate 24 per minute, blood pressure 115/82, pulse oximetry 100% on oxygen via BiPAP. Cardiovascular System: First and second heart sounds are audible without any murmurs or gallops. Respiratory System: Bilateral lung air entry is moderately decreased with few bilateral rales present on auscultation. Gastrointestinal System: Abdomen is soft and nondistended. Normal bowel sounds are present. Neurologic: The patient appears confused and disoriented most likely secondary to metabolic encephalopathy in addition to senile dementia. DIAGNOSTIC DATA: CBC and basic metabolic panel are both nondiagnostic. ABG done this morning on 100% oxygen shows a pH of 7.38, pCO2 82, and PO2 138. Chest x-ray obtained this morning showed worsening opacification on the left side with essentially complete opacification of the left hemithorax. As compared to her previous chest x-rays, there is overall mild worsening. IMPRESSION: 1. Acute on chronic hypoxemic respiratory failure secondary to pneumonia and pulmonary edema. 2. Diastolic congestive heart failure with acute exacerbation. 3. 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 4. Urinary tract infection. 5. Chronic atrial fibrillation. 6. Type 2 diabetes mellitus. 7. Generalized deconditioning. PLAN: The patient will continue to receive Zosyn along with Zyvox intravenously for her pneumonia along with urinary tract infection. We will continue with IV furosemide to address her pulmonary edema and diastolic congestive heart failure. She will continue with general supportive care, although her prognosis is poor and family is well aware of that. Hospice has been recommended to the patient, but we are going to give it a try and treat her with antibiotics to see if her condition would improve. Otherwise, plan B is to discharge her to alf at [facility] with Hospice. [facility] is going to be ready to take over the patient whenever we discharge her. cc: Lyle Sands MD
--- NOTE | 2019-04-02 10:14 | PROVIDER DOCUMENTATION ---
This chart was entered by Rosa Giraldo Scribe, acting as scribe for Steven Aleman MD. HPI-Neurological Disorder - General Chief Complaint: Shortness of Breath Stated Complaint: AMS Time Seen by Provider: 03/27/19 14:16 Source: family Allergies/Adverse Reactions: Patient Allergies Allergy/AdvReac Type Severity Reaction Status Date / Time sulfamethoxazole Allergy Unknown Verified 08/01/18 13:09 [From Bactrim] trimethoprim [From Bactrim] Allergy Unknown Verified 08/01/18 13:09 Home Medications: Home Medication List Medication Instructions Recorded Confirmed Last Taken Type Acetaminophen 650 mg HI Q6H PRN PRN 03/27/19 03/27/19 Unknown History Ferrous Sulfate [Ferrousul] 325 mg PO DAILY 03/27/19 03/27/19 Unknown History Lactulose 30 ml PO BID 03/27/19 03/27/19 Unknown History Lorazepam 1 mg PO Q6H PRN PRN 03/27/19 03/27/19 Unknown History Omeprazole 40 mg PO DAILY 03/27/19 03/27/19 Unknown History Tramadol [Ultram] 1 tab PO TID 03/27/19 03/27/19 Unknown History - History of Present Illness-Neuro Nature of Presenting Problem: Patient is a 84 year old female who presents to the ED via EMS with altered mental status. Family states patient has had a decrease in responsiveness. Family reports last seeing patient normal was 2 days ago. History of cirrhosis and dementia. Severity: reports: mild Onset/Duration: reports: unsure Timing: reports: still present Context: reports: other (AMS) Character of Altered Mental Status: reports: decreased responsiveness Similar Symptoms Previously?: No Recently seen or treated by another doctor?: No Review of Systems - Adult - REVIEW OF SYSTEMS - ADULT ROS:: ROS per family Constitutional: reports: no symptoms reported Eyes: reports: no symptoms reported Ears, Nose, Mouth & Throat: reports: no symptoms reported Cardiovascular: reports: no symptoms reported Respiratory: reports: no symptoms reported Gastrointestinal: reports: no symptoms reported Genitourinary: reports: no symptoms reported Musculoskeletal: reports: no symptoms reported Integumentary: reports: no symptoms reported Neurological: reports: see HPI, other (AMS - decrease in responsiveness). denies: headache/migraines, syncope Psychiatric: reports: no symptoms reported Endocrine: reports: no symptoms reported Hematologic/Lymphatic: reports: no symptoms reported Allergic/Immunologic: reports: no symptoms reported All Other Systems: Reviewed and Negative Past History - Adult - PAST MEDICAL HISTORY-ADULT Review of Records: reports: Old Records Reviewed, Nursing Assessment Review, Medications Reviewed, Social history reviewed & non-contributory. Major Childhood Illnesses: reports: denies history Cardiovascular: reports: CHF, HTN, SD Respiratory: reports: COPD Gastrointestinal: reports: GERD Obstetrical/Gynecological: reports: denies history Genitourinary: reports: denies history Musculoskeletal: reports: denies history Neurological: reports: CVA, Seizures/Epilepsy Psychiatric: reports: anxiety Endocrine/Immune: reports: Diabetes Other Conditions: reports: other cancer (skin) - PRIOR SURGERIES/PROCEDURES Surgical/Procedure History: reports: cholecystectomy, hysterectomy, - IMMUNIZATION STATUS Childhood Immunizations: See Nurse Assessment Flu Vaccine: See Nurse Assessment - FAMILY HISTORY Family History: reviewed, not pertinent - SOCIAL HISTORY Smoking: cigarettes (former) Substance Use: denies Physical Exam- Neurological - Physical Exam-Neuro Initial Vital Signs Reviewed: Yes General Appearance: no apparent distress, lethargic. negative: obtunded HENMT: normocephalic/atraumatic, moist mucous membranes. negative: angioedema Head Injury: no evidence of injury. negative: active bleeding, lacerations Respiratory: chest non-tender, decreased breath sounds (right), other (guppy breathing). negative: respiratory distress Cardiovascular: regular rate, rhythm, no gallop, no murmur Abdominal Exam: normal bowel sounds, non tender, soft. negative: guarding, rigid Extremity: non-tender, swelling (right leg). 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 negative: rash Psych/Mental Status: other (unable to assess per patient's condition) Progress - PLAN OF CARE/RESULTS Progress/Plan/Lab Results: 03/27/19 15:38 Blood Culture - Final Blood NO GROWTH AFTER 5 DAYS 03/27/19 15:31 Blood Culture - Final Blood NO GROWTH AFTER 5 DAYS Orders Category Date Time Status Admit - [facility] Routine AdmDCTranf 03/27/19 18:03 Active Activity - Strict Bedrest ORDERED Care 03/27/19 18:03 Active Apply Mechanical Device [QM] ORDERED Care 03/27/19 18:03 Active Elevate Head of Bed DIRECTED Care 03/27/19 18:03 Active Encourage Fluids DIRECTED Care 03/27/19 18:03 Active Ross Cath Insertion ORDERED Care 03/27/19 14:53 Completed Intake and Output-Strict Q 8-HR ASSESS Care 03/27/19 18:03 Active Nursing- Assist w/ IS as order ORDERED Care 03/27/19 18:03 Active Resuscitation Status Routine Care 03/27/19 16:43 Ordered Turn, Cough and Deep Breathe Q2HR Care 03/27/19 18:03 Active Vital Signs Order Q 4-HR ASSESS Care 03/27/19 18:03 Active Z-Document. for Tele Applied ORDERED Care 03/27/19 18:03 Completed Palliative Care Consult [OM.CSS] Routine Cons 03/27/19 17:01 Active CHEST-1 VIEW [RAD] Stat Exams 03/27/19 14:16 Completed CHEST-PORTABLE [RAD] Routine Exams 03/28/19 06:[address] HEAD W/O CONTRAST [CT] Stat Exams 03/27/19 14:48 Completed KUB ABDOMEN [RAD] Stat Exams 03/27/19 17:02 Completed ABG [RESP] Routine Lab 03/27/19 15:40 Completed AMMONIA [CHEM] Stat Lab 03/27/19 17:16 Completed BLOOD CULTURE [BLDCUL] Stat Lab 03/27/19 15:38 Completed CBC WITH DIFF [HEME] Routine Lab 03/27/19 18:29 Completed CBC WITH DIFF [HEME] Stat Lab 03/27/19 15:31 Completed COMPREHENSIVE METABOLIC PANEL [CHEM] Routine Lab 03/27/19 18:29 Completed COMPREHENSIVE METABOLIC PANEL [CHEM] Stat Lab 03/27/19 15:31 Completed LACTATE, PLASMA [CHEM] Stat Lab 03/27/19 15:39 Completed PRO B-NATRIURETIC PEPTIDE Stat Lab 03/27/19 15:31 Completed PROTIME WITH INR [COAG] Stat Lab 03/27/19 15:31 Completed PTT [COAG] Stat Lab 03/27/19 15:31 Completed TROPONIN T HIGH SENSITIVITY Stat Lab 03/27/19 15:31 Completed UA [URINALYSIS W/POSS RFLX CULT] [URINALYSIS] Stat Lab 03/27/19 15:31 Completed URINE CULTURE [RM] Routine Lab 03/27/19 15:31 Completed URINE MANUAL MICROSCOPIC [URINALYSIS] Stat Lab 03/27/19 15:31 Completed Acetaminophen [Ofirmev 1000 mg/Isotonic Soln] Med 03/27/19 18:03 Active 1,000 mg in 100 ml IV Q6H PRN CefEPIME [Maxipime] 1 gm Med 03/27/19 16:47 Discontinued 0.9% Sodium Chloride Inj [Ns] 50 ml IV NOW Diltiazem 100 mg/Ns [Cardizem 100 mg/Ns] Med 03/27/19 18:03 Discontinued 100 mg in 100 ml IV As Directed mls/hr Furosemide [Lasix] Med 03/27/19 16:29 Discontinued 20 mg IV NOW ONE Furosemide [Lasix] Med 03/27/19 18:03 Discontinued 40 mg IV Q12H Levofloxacin 500 mg/D5w [Levaquin 500 mg/D5w] Med 03/27/19 14:47 Discontinued 500 mg in 100 ml IV NOW Linezolid 600 mg/D5w [Zyvox 600 mg/D5w] Med 03/27/19 18:03 Active 600 mg in 300 ml IV Q12H Pantoprazole [Protonix] Med 03/27/19 18:03 Active 40 mg IV Q24H Piperacillin/Tazobactam [Zosyn] 3.375 gm Med 03/27/19 23:00 Active 0.9% Sodium Chloride Inj [Ns] 50 ml IV Q6H Sodium Chloride 0.9% Med 03/27/19 18:03 Active 10 ml INJ DIRECTED Vancomycin 1 gm/Ns Med 03/27/19 16:46 Discontinued 1 gm in 250 ml IV NOW BIPAP Stat Oth 03/27/19 16:47 Completed Incentive Spirometer Routine Oth 03/27/19 18:03 Completed Oxygen Device Routine Oth 03/27/19 18:03 Completed Pulse Oximetry Routine Oth 03/27/19 18:03 Completed Telemetry [OM.EQ] Routine Oth 03/27/19 18:03 Active EKG [EKG] Stat Ther 03/27/19 14:17 Draft Transfer/Admit Order [TRANSFER] Routine Transfer 03/27/19 16:58 Completed Result Diagrams: 04/02/19 07:10 04/02/19 07:10 - EKG 1 Time of EKG reading by physician:: 14:32 EKG Read and Signed by:: Steven Aleman EKG Interpretation (*Must complete 3 of following elements*): Abnormal Rate: 113 Rhythm: atrial fibrillation with rapid ventricular response [place]: normal Comments: abnormal QRS-T angle, consider primary T wave abnormality. - XRAY 1 XRAY Study: Chest Impression: See EMR Report ( EXAM: CHEST-1 VIEW 03/27/2019 HISTORY: sob TECHNIQUE: AP portable upright at 1426 COMMENT: There is cardiomegaly. There is increased pulmonary vascularity. There is alveolar and interstitial edema. There is worsened opacification of the left lower lobe compared to 08/05/2018. IMPRESSION: Cardiomegaly and pulmonary edema plus minus pneumonia. Electronically signed by Preston Henson 03/27/2019 2:32 PM 03/27/19 1432 Interpreting Physician: Preston Henson MD Dictated Date/Time: 03/27/19 1431 cc: Steven Aleman MD; Yusuf Anthony MD) - CT/MRI 1 CT Study: Head Impression: See EMR Report ( EXAM: CT HEAD W/O CONTRAST 03/27/2019 HISTORY: ams TECHNIQUE: This exam was performed using automated exposure control, adjustment of mA or kV according to patient size, and/or use of iterative reconstruction te chnique. COMMENT: There are calcifications in the vertebral and internal carotid arteries. There is a lacune in the inferior portion of the obtainment on the left and also possibly on the right. There is no evidence of mass effect or bleed. There is mild periventricular white matter lucency bilaterally particularly in the frontal lobes. The paranasal sinuses are clear. The calvarium is intact. Compared to the previous examination of 01/16/2018 the appearance of the brain has not changed significantly. IMPRESSION: Chronic ischemic changes. No evidence of acute intracranial disease. Electronically signed by Preston Henson 03/27/2019 3:21 PM 03/27/19 1521 Interpreting Physician: Preston Henson MD Dictated Date/Time: 03/27/19 1520 cc: Steven Aleman MD; Yusuf Anthony MD) Departure - Departure Date of Disposition Decision: 03/27/19 Time of Disposition Decision: 17:00 DIAGNOSIS: Bacteremia, CHF exacerbation, UTI (urinary tract infection), Pneumonia Disposition: ADMITTED INPATIENT 09 Certified Medical Emergency: Emergent Condition: Fair - Critical Care Note This patient required my direct & personal management of CC.: Yes Total Time (mins): 35 Critical Care Statement: This patient required my direct personal management to treat or rule out processes, the absence of which, could potentiallly result in sudden, clinically significant life or limb threatening deterioration. Attestation - Physician/ [place] Attestation Patient care was provided by Advanced Practice Provider:: No The physician spent face to face time with patient:: Yes Advanced Practice Provider documentation review:: Supervising physician onsite and consulted in the evaluation and care of this patient. The physician did have a face to face encounter with the patient. This chart was documented by the indicated scribe, (Rosa Giraldo Scribe) and accurately reflects the services I performed and decisions made by me, Steven Aleman MD, as attested by the provider's signature.
[2019-04-02] MEDS: LOPRESSOR PO SCH ×2 (10:58→22:01)
[2019-04-02] MEDS: ATIVAN PO PRN ×2 (11:14→18:12)
[2019-04-02] MEDS: DUONEB (A & A) INH SCH (20:09)
[2019-04-02] MEDS: MUCOMYST 20% INH SCH (20:09)
[2019-04-02] MEDS: MELATONIN PO SCH (22:01)
--- NOTE | 2019-04-03 00:28 | PULMONOLOGY PROGRESS NOTE ---
DATE: 04/02/2019 SUBJECTIVE: Patient has had increasing difficulty maintaining oxygen saturations. She desaturates when her BiPAP is removed. She is weak and has a poor cough. OBJECTIVE: Vital Signs: The patient has been afebrile for the last 24 hours. Blood pressure 121/82, heart rate 96, respiratory rate 24, oxygen saturation 93%. HEENT: Pupils are equal. Oropharynx appears clear. Neck: Supple. Chest: Reveals markedly diminished breath sounds on the left. Cardiac: S1, S2. Abdomen: Soft/obese. Extremities: Reveal trace edema. LABORATORIES: Arterial blood gas reveals a pH 7.38, pCO2 of 82, PO2 of 138 on BiPAP. Sodium 135, potassium 3.8, chloride 83, bicarbonate 41, BUN 16, creatinine 1.0. Chest x-ray reveals complete atelectasis of the left lung. IMPRESSION: An 84-year-old with 1. Acute hypoxemic respiratory failure. 2. Chronic hypercapnic respiratory failure. 3. Acute cor pulmonale. 4. Probable mucous plugging with atelectasis of the left lung. 5. Pulmonary hypertension. 6. Diastolic heart failure. DISCUSSION: An 84-year-old with problems outlined above. She has had significant radiographic worsening on the left with some improvement on the right. Findings on the chest x-ray are most consistent with mucous plugging and atelectasis. This is likely due to significant weakness. Bronchoscopy could be performed, but would not likely change her outcome given her overall poor status. RECOMMENDATIONS: 1. Continue BiPAP. 2. We will add bronchodilators and Mucomyst. 3. Agree with Hospice plans. cc: MD Lyle Johnson MD
[2019-04-03] MEDS: ZOSYN 3.375 GM in NS 50 ML IV SCH ×4 (03:00→20:36)
[2019-04-03] MEDS: DULCOLAX PR SCH ×2 (03:19→20:36)
[2019-04-03] MEDS: ATIVAN PO PRN (03:20)
[2019-04-03] MEDS: DUONEB (A & A) INH SCH ×4 (04:24→22:00)
[2019-04-03] MEDS: MUCOMYST 20% INH SCH ×2 (08:25→22:00)
[2019-04-03 08:29] LABS: BASO# 0.07 X1000 (0.0-0.2); BASO% 0.6 % (0.0-0.8); EOS# 0.02 X1000 (0.0-0.7); EOS% 0.2 % (0.0-10.0); HEMATOCRIT 40.3 % (37.0-47.0); HEMOGLOBIN 12.4 g/dL (12.0-16.0); IMM GRAN# 0.09 X1000 (0.0-0.04); IMM GRAN% 0.8 % (0.0-0.5); LYMPH# 0.85 X1000 (1.2-3.4); LYMPH% 7.7 % (20.5-51.1); MCH 29.7 PG (27-31); MCHC 30.8 g/dL (33-37); MCV 96.6 FL (81-99); MONO# 0.54 X1000 (0.11-0.59); MONO% 4.9 % (1.7-9.3); MPV 10.4 FL (7.4-10.4); NEUT# 9.53 X1000 (1.4-6.5); NEUT% 85.8 % (42.2-75.2); PLT 190 X1000 (130-400); RBC 4.17 XMIL (4.2-5.4); RDW 13.8 % (11.5-14.5)
[2019-04-03] MEDS: ZYVOX 600 MG/D5W 600 MG/300 ML IVPB IV SCH ×2 (08:46→23:54)
[2019-04-03] MEDS: LOPRESSOR PO SCH ×2 (08:47→20:33)
[2019-04-03] MEDS: LASIX IV SCH (08:47)
[2019-04-03 09:07] LABS: CALCIUM 9.2 mg/dL (8.8-10.2); CREATININE 1.1 mg/dL (0.5-0.9); POTASSIUM 3.8 mmol/L (3.5-5.1)
[2019-04-03 10:05] LABS: BANDS 2 % (0-1); LYMPHS 10 % (21-51); SEGS 86 % (42-75)
--- NOTE | 2019-04-03 13:09 | PROGRESS NOTE ---
DATE: 04/03/2019 SUBJECTIVE: Patient is not able to communicate appropriately since she appears to be confused. OBJECTIVE: Vital Signs: Temperature 97.5 degrees, pulse 105 per minute, respiratory rate 29 per minute, blood pressure 152/88, pulse oximetry 89 percent with a 70% oxygen by BiPAP. General: The patient is awake, but disoriented. She appears to be having mild to moderate respiratory distress at times. Cardiovascular System: First and second heart sounds are audible without any murmurs or gallops. Irregular tachycardia is present. Respiratory System: The patient appears to be somewhat dyspneic with decreased breath sounds on the left side. Gastrointestinal System: Abdomen is soft and nondistended. Normal bowel sounds are present. DIAGNOSTIC DATA: CBC shows WBC count of 11.10 with 85.8% neutrophils. Rest of the CBC is nondiagnostic. Basic metabolic panel was also nondiagnostic and ABG done yesterday showed pH of 7.38, pCO2 82, and PO2 138 on 100% oxygen via BiPAP. Chest x-ray done yesterday showed worsening opacification on the left side. This was worse as compared to the previous chest x-rays. IMPRESSION: 1. Acute on chronic hypoxemic respiratory failure secondary to pneumonia. 2. Diastolic congestive heart failure with acute exacerbation. 3. Metabolic encephalopathy. 4. Urinary tract infection. 5. Chronic atrial fibrillation. 6. Type 2 diabetes mellitus. 7. Generalized deconditioning. PLAN: The patient will continue to receive Zosyn along with Zyvox intravenously for pneumonia and urinary tract infection. She will also continue respiratory support with BiPAP and supplemental oxygen. She is currently being followed by Pulmonology as well. Her overall prognosis is poor and the patient's family is well aware of that. We will continue with the current care and I discussed with patient's daughter who agrees for patient to be transferred to [facility] rehab with hospice next week if she does not get any further better. cc: Lyle Sands MD
[2019-04-03] MEDS: MORPHINE IV PRN ×2 (14:36→20:35)
[2019-04-03] MEDS: MELATONIN PO SCH (20:34)
[2019-04-03] MEDS: PROTONIX IV SCH (20:37)
[2019-04-03] MEDS: ATIVAN IV PRN ×2 (20:37→23:54)
[2019-04-04] MEDS: DULCOLAX PR SCH (03:16)
[2019-04-04] MEDS: ZOSYN 3.375 GM in NS 50 ML IV SCH ×2 (03:32→08:32)
[2019-04-04] MEDS: DUONEB (A & A) INH SCH ×3 (03:48→15:15)
--- NOTE | 2019-04-04 06:40 | PULMONOLOGY PROGRESS NOTE ---
DATE: 04/03/2019 SUBJECTIVE: The patient is awake. She remains on BiPAP. She appears to be mildly uncomfortable. OBJECTIVE: Vital Signs: The patient has been afebrile for the last 24 hours. Blood pressure 123/73, heart rate 101, respiratory rate 20, and oxygen saturation 97% on BiPAP. HEENT: Pupils are equal and reactive. Oropharynx is clear. Neck: Supple. Lungs: Chest reveals near absence of breath sounds in the left hemithorax. Cardiac: S1-S2. Abdomen: Soft. Extremities: Without edema. IMPRESSION: An 84-year-old with: 1. Acute hypoxemic respiratory failure. 2. Chronic hypercapnic respiratory failure. 3. Mucus plugging with atelectasis of the left lung. 4. Acute cor pulmonale. 5. Pulmonary hypertension. 6. Diastolic dysfunction/heart failure. DISCUSSION: Unfortunate 84-year-old with problems outlined above. She is on bronchodilators, but clinically her exam has not improved. PLAN: 1. Continue BiPAP. 2. Continue bronchodilators. 3. Follow up chest x-ray tomorrow. 4. Prognosis is poor. cc: MD Lyle Johnson MD
--- NOTE | 2019-04-04 07:03 | Diag Imaging Result Doc PS360 ---
CHEST-PORTABLE - 04/04/2019 INDICATION: abnormal exam COMPARISON: 04/02/2019 FINDINGS: There has been some improvement in aeration of the left lung, at the upper lung zone. Stable dense consolidation or atelectasis at the left lung base. Stable cardiomegaly and pulmonary vascular congestion. Stable patchy infiltrates throughout the right lung and lung base, nonspecific. Most likely relate to pulmonary edema. There is a trace right pleural effusion as well. IMPRESSION: Improved aeration of the upper left lung. Electronically signed by Gregg Delacruz 04/04/2019 7:00 AM
[2019-04-04] MEDS: MUCOMYST 20% INH SCH (08:15)
[2019-04-04] MEDS: LOPRESSOR PO SCH (08:33)
[2019-04-04] MEDS: LASIX IV SCH (08:33)
[2019-04-04] MEDS: ZYVOX 600 MG/D5W 600 MG/300 ML IVPB IV SCH (08:33)
[2019-04-04] MEDS: MORPHINE IV PRN (12:39)
--- NOTE | 2019-04-04 14:05 | PROGRESS NOTE ---
DATE: 04/04/2019 SUBJECTIVE: The patient is not able to communicate and currently is asleep because of morphine that she received earlier for dyspnea and anxiety. OBJECTIVE: Vital Signs: Temperature 97.5 degrees, pulse 94 beats per minute, respiratory rate 17 per minute, blood pressure 120/67, pulse oximetry 97 percent with 100% oxygen via BiPAP. Cardiovascular System: First and second heart sounds are audible without any murmurs or gallops. Respiratory System: Bilateral lung air entry is moderately decreased with few bilateral rales present on auscultation. The patient is breathing much more effortlessly, as compared to yesterday, after morphine was initiated. Gastrointestinal: Abdomen is soft and nondistended. Normal bowel sounds are present. DIAGNOSTIC DATA: Chest x-ray obtained today showed bilateral infiltrates, especially on the left side but there is improved aeration in the left upper lung as compared to the previous chest x- ray. IMPRESSION: 1. Acute on chronic hypoxemic respiratory failure secondary to pneumonia. 2. Diastolic congestive heart failure with acute exacerbation. 3. Metabolic encephalopathy. 4. Urinary tract infection. 5. Chronic atrial fibrillation. 6. Type 2 diabetes mellitus. 7. Generalized deconditioning. PLAN: The patient will continue to see broad-spectrum IV antibiotics and continue respiratory support. She is being followed by Pulmonology and her overall prognosis is poor. Patient's family is well aware of that and they have agreed if we can transfer her to [facility] with hospice if she does not get any better. They understand that they want to keep her comfortable and do not want any resuscitation if needed. cc: Lyle Sands MD
[2019-04-04] MEDS ORDERED: DULCOLAX PR PRN (15:21)
[2019-04-04] MEDS ORDERED: ATIVAN IV PRN (15:22)
[2019-04-04] MEDS ORDERED: MORPHINE IV PRN (15:24)
[2019-04-04] MEDS ORDERED: ATROPINE 1 % OPHTH SOLN SL PRN (15:27)
[2019-04-04] MEDS ORDERED: TYLENOL PR PRN ×2 (15:27)
[2019-04-04 17:20] VITALS: BP 125/84
--- NOTE | 2019-04-08 22:16 | DISCHARGE SUMMARY ---
ADMISSION DATE: 03/27/2019 DISCHARGE DATE: 04/04/2019 DISCHARGE DIAGNOSES: 1. Acute on chronic hypoxemic respiratory failure secondary to pneumonia. 2. Diastolic congestive heart failure with acute exacerbation. 3. Metabolic encephalopathy. 4. Urinary tract infection. 5. Chronic atrial fibrillation. 6. Type 2 diabetes mellitus. 7. Generalized deconditioning, cause of that acute on chronic hypoxemic respiratory failure causing cardiac arrest. HOSPITAL COURSE: This was an 84-year-old female who was seen on 03/27/2019 after she presented with being sick and not able to breathe at the emergency room. She was noted to have healthcare- associated pneumonia and was initiated on broad-spectrum antibiotics including IV Zosyn and Zyvox. She was also given IV Lasix to diurese her because of acute on chronic diastolic congestive heart failure. She also had atrial fibrillation with rapid ventricular response that improved with diltiazem. Oxygen supplementation was also provided to her and she was prepped as DNR as per family request. Pulmonology consult was also obtained, who were actively involved in the care of this patient during this hospital admission. The patient's condition gradually worsened and despite all these measures, she developed bilateral infiltrates that failed to respond to aggressive medical therapy. The patient also received BiPAP treatment for respiratory support, but all these measures did not help improve her condition and she on 04/04/2019 at 5:28 p.m. cc: Lyle Sands MD
== END 2019-04-04 17:28 | disposition expired | DRG 871 ==
LOC: SUPCPDRO → EDSEX → ED 13:57 → EDIPHOLD 17:14 → 2N 03-28 13:54 → 3N 03-31 23:06
PROVIDERS: ADMIT Internal Medicine; ATTEND Internal Medicine